=== PATIENT | female | born 1935 | race Caucasian/White ===

== ENCOUNTER → 2020-02-09 12:10 | Outpatient (BNVA) | payer MEDICARE, SELFPAY | PROVIDERS: Family Provider Nurse Practitioner Family; PCP Nurse Practitioner Family; Visit Provider Family Medicine | DX: D50.8 Other iron deficiency anemias (principal); E11.9 Type 2 diabetes mellitus without complications; H61.23 Impacted cerumen, bilateral; N39.0 Urinary tract infection, site not specified; R00.0 Tachycardia, unspecified | CPT/HCPCS: 80053; 83036; 84443; 85025 ==

== ENCOUNTER → 2022-08-22 10:47 | Outpatient (BNVA) | payer MEDICARE, SELFPAY | PROVIDERS: Family Provider Nurse Practitioner Family; PCP Family Medicine; Visit Provider Family Medicine | DX: E11.9 Type 2 diabetes mellitus without complications (principal); M25.561 Pain in right knee; M25.562 Pain in left knee; M25.551 Pain in right hip; M25.552 Pain in left hip; G89.4 Chronic pain syndrome; E03.9 Hypothyroidism, unspecified | CPT/HCPCS: 80053; 83036; 84443 ==

== ENCOUNTER → 2023-04-03 10:38 | Outpatient (BNVA) | payer MEDICARE, SELFPAY | PROVIDERS: Family Provider Nurse Practitioner Family; PCP Family Medicine; Visit Provider Family Medicine | DX: R06.02 Shortness of breath (principal); K59.00 Constipation, unspecified; Z79.891 Long term (current) use of opiate analgesic; Z51.81 Encounter for therapeutic drug level monitoring | CPT/HCPCS: 71046; 74018; 80307 ==

== ENCOUNTER → 2023-06-06 11:00 | Outpatient (BNVA) | payer MEDICARE, SELFPAY | PROVIDERS: Family Provider Nurse Practitioner Family; PCP Family Medicine; Visit Provider Dermatology | DX: C44.01 Basal cell carcinoma of skin of lip (principal) | CPT/HCPCS: 11102; 99213 ==

== ENCOUNTER → 2023-08-07 13:42 | Outpatient (BNVA) | payer MEDICARE, SELFPAY | PROVIDERS: Family Provider Nurse Practitioner Family; PCP Family Medicine; Visit Provider Dermatology | DX: C44.01 Basal cell carcinoma of skin of lip (principal); L57.8 Other skin changes due to chronic exposure to nonionizing radiation; L82.1 Other seborrheic keratosis; L29.8 Other pruritus | CPT/HCPCS: 99213 ==

== ENCOUNTER → 2023-08-22 11:13 | Outpatient (BNVA) | payer MEDICARE, SELFPAY | PROVIDERS: Family Provider Nurse Practitioner Family; PCP Family Medicine; Visit Provider Family Medicine | DX: E03.9 Hypothyroidism, unspecified (principal); E11.9 Type 2 diabetes mellitus without complications; G89.4 Chronic pain syndrome; K59.00 Constipation, unspecified | CPT/HCPCS: 80053; 83036; 84443; 85025 ==

== ENCOUNTER 2023-12-19 12:50 | Inpatient (IN) | payer MEDICARE, SELFPAY ==
[2023-12-19] VITALS (9 sets, daily range): BP systolic 135–202; BP diastolic 65–89; PULSE 84–98; RESP 15–19; TEMP 36.7; O2SAT 93–97; BMI 20.2
--- NOTE | 2023-12-19 13:10 | ED_ITS ---
HPI - Skin/Abscess/Foreign Bdy 2 General: Chief complaint: Skin/Abscess/Foreign Body Stated complaint: back pain Time Seen by Provider: 12/19/23 13:10 History of Present Illness: 88-year-old female comes in today for co mplaints of shingles uncontrolled pain. Patient appears nontoxic. Patient appears in no acute distress. Patient appears in mild to moderate pain. Caregiver states that they were worried about her kidneys so they referred her to the ER for evaluation. Patient does take oxycodone 5 mg every 8 hours for control of pain. Patient endorses that she has taken 5 of her oxycodone tablets this morning due to uncontrolled pain. Patient had reached out to Dr. Moran's office and they referred her to the ER because of their concern for her kidneys. Associated symptoms: Deny fever(s), nausea or vomiting Review of Systems 2 General: Reports: 10 or more systems reviewed and unremarkable except in HPI and below Const: Denies: fever(s) Card: Denies: chest pain Resp: Denies: dyspnea GI: Denies: nausea, vomiting, diarrhea or constipation : Reports: urinary frequency and urinary hesitancy Skin/Breast: Reports: rash PFSH ED 2 PFSH: Medical History Chronic pain Hypothyroid Type 2 diabetes mellitus Social History Smoking and tobacco/nicotine status: never used tobacco/nicotine Second hand smoke exposure: No Alcohol intake: never Substance/Drug Use: never Physical Exam 2 Const: COMMON NORMALS: alert HENMT: COMMON NORMALS: normocephalic HEAD & SCALP: normocephalic Neck/C-Spine: COMMON NORMALS: full ROM Resp: COMMON NORMALS: normal respiratory effort and clear to auscultation bilaterally AUSCULTATION: clear to auscultation bilaterally Cardio: COMMON NORMALS: regular rate and regular rhythm RATE: regular rate RHYTHM: regular rhythm GI: COMMON NORMALS: non-tender Extremity: COMMON NORMALS: normal to inspection Neuro: SENSORIUM/ORIENTATION: Yes alert Skin: RASHES: rashes noted (Crusted vesicular eruption to the back worse on the right than the left.) Course 2 Vital Signs: Vital signs: Vital Signs Temperature 98.0 F 12/19/23 12:52 Pulse Rate 98 12/19/23 12:52 Respiratory Rate 15 12/19/23 13:08 Blood Pressure 182/79 12/19/23 12:52 Pulse Oximetry 95 12/19/23 12:52 Oxygen Delivery Me thod Room Air 12/19/23 12:52 MDM - Skin/Abscess/Foreign Bdy Medicial Decision Making Patient comes in with difficulty with urination and shingles rash with uncontrolled pain. Patient was referred over from Dr. Moran's office due to her increased use of her oxycodone and complaints of not being able to urinate. Patient had been diagnosed with shingles 1 to 2 days ago and was instructed by Dr. Moran to use her oxycodone if she needed something for pain. Patient is scheduled oxycodone 5 mg 3 times a day for pain related to chronic pain syndrome. Patient today had taken 5 tablets before noon and after contacting their office then was referred to the emergency department. Dr. Moran's office had contacted the ER and told him they were concerned about her kidney function. On exam respirations were even lungs were clear to auscultation. Patient was alert but agitated. Patient has a vesicular eruption to her right back with some midline involvement of the flank area. Abdomen soft nontender. Skin was warm and dry. Vital signs are normal except for elevated blood pressure. Differential diagnosis includes not limited to shingles, dehydration, electrolyte imbalance, urinary tract infection. CBC had a increase in white count of 14,000. CMP noted a sodium of 121, and a glucose of 260. Reviewed patient with Dr. Plascencia who recommended admission due to the hyponatremia. Discussed patient with Dr. Daniel who agreed to plan for admission. Patient was started on normal saline, ceftriaxone for urinary tract infection, and Valtrex for shingles. Lab Data 12/19/23 13:29 12/19/23 13:29 Laboratory Results WBC 14.49 10^3/uL (3.29-11.43) H 12/19/23 13:29 RBC 4.24 10^6/uL (3.85-5.65) 12/19/23 13:29 Hgb 12.90 g/dL (11.27-16.99) 12/19/23 13:29 Hct 37.0 % (36-47) 12/19/23 13:29 MCV 87.3 fl (85-98) 12/19/23 13:29 MCH 30.4 pg (27-33) 12/19/23 13:29 MCHC 34.9 g/dL (30-55) 12/19/23 13:29 RDW 11.9 % (12.1-15.1) L 12/19/23 13:29 Plt Count 344 10^3/cmm (157-399) 12/19/23 13:29 MPV 9.3 fL (7.4-10.4) 12/19/23 13:29 Neut % (Auto) 75.8 % 12/19/23 13:29 Lymph % (Auto) 15.3 % 12/19/23 13:29 [place] % (Auto) 8.0 % 12/19/23 13:29 Eos % (Auto) 0.4 % 12/19/23 13:29 Baso % (Auto) 0.2 % 12/19/23 13:29 Neut # (Auto) 10.98 10^3/uL (1.8-7.7) H 12/19/23 13:29 Lymph # (Auto) 2.2 10^3/uL (0.8-4.8) 12/19/23 13:29 [place] # (Auto) 1.2 10^3/uL (0.2-0.9) H 12/19/23 13:29 Eos # (Auto) 0.1 10^3/uL (0.0-0.8) 12/19/23 13:29 Baso # (Auto) 0.0 10^3/uL (0.0-0.1) 12/19/23 13:29 Nucleated RBC % (auto) 0 % 12/19/23 13:29 Nucleated RBCs # 0.0 /100WBC 12/19/23 13:29 Sodium 121 mmol/L (136-145) L 12/19/23 13:29 Potassium 4.0 mmol/L (3.5-5.1) 12/19/23 13:29 Chloride 82 mmol/L (98-107) L 12/19/23 13:29 Carbon Dioxide 25 mmol/L (22-29) 12/19/23 13:29 Anion Gap 18.0 (5-19) 12/19/23 13:29 BUN 7 mg/dL (8-23) L 12/19/23 13:29 Creatinine 0.5 mg/dL (0.5-0.9) 12/19/23 13:29 GFR Calculation Not Reportable 12/19/23 13:29 Glucose 260 mg/dL (65-115) H 12/19/23 13:29 Calculated Osmolality 259 mOsm/kg (285-295) L 12/19/23 13:29 Calcium 10.0 mg/dL (8.5-10.5) 12/19/23 13:29 Total Bilirubin 0.9 mg/dL (0.15-1.2) 12/19/23 13:29 AST 30 U/L (0-32) 12/19/23 13:29 ALT 20 U/L (0-33) 12/19/23 13:29 Alkaline Phosphatase 124 U/L (35-105) H 12/19/23 13:29 Total Protein 7.9 g/dL (6.6-8.7) 12/19/23 13:29 Albumin 3.9 g/dL (3.5-5.2) 12/19/23 13:29 Globulin 4.0 g/dL (1.3-4.6) 12/19/23 13:29 Urine Color Yellow (Yellow) 12/19/23 13:27 Urine Appearance Hazy (CLEAR) A 12/19/23 13:27 Urine pH 6 (5-7) 12/19/23 13:27 Ur Specific [place] 1.010 (1.005-1.030) 12/19/23 13:27 Urine Protein Trace (Negative) 12/19/23 13:27 Urine Glucose (UA) 4+ (Normal) H 12/19/23 13:27 Urine Ketones 2+ (Negative) H 12/19/23 13:27 Urine Blood 2+ (Negative) H 12/19/23 13:27 Urine Nitrate Negative (Negative) 12/19/23 13: Urine Bilirubin Neg (Negative) 12/19/23 13:27 Urine Urobilinogen Norm mg/dL (Negative) 12/19/23 13:27 Ur Leukocyte Esterase 2+ (Negative) H 12/19/23 13:27 Urine RBC 0-4 /hpf (0-2) H 12/19/23 13:27 Urine WBC 25-40 /hpf (0-5) H 12/19/23 13:27 Ur Squamous Epith Cells 0-4 /hpf (0-5) H 12/19/23 13:27 Amorphous Sediment Not Reportable 12/19/23 13:27 Urine Bacteria 3+ /hpf (NONE) H 12/19/23 13:27 No radiology studies performed this visit Discharge Plan Discharge Patient Disposition: Admitted As Inpatient Clinical Impression: Acute hyponatremia, Acute UTI Shingles Qualifiers: Herpes zoster complications: unspecified herpes zoster complication Qualified Code(s): B02.8 - Zoster with other complications Diabetes mellitus Qualifiers: Diabetes mellitus type: type 2 Diabetes mellitus snf insulin use: u nspecified ferry terminal supervisor insulin use status Diabetes mellitus complication status: w ith skin complications Diabetes mellitus complication detail: with dermatitis Q ualified Code(s): E11.620 - Type 2 diabetes mellitus with diabetic dermatitis Condition: Stable Coding Level of Care Code ED Bone Cooking Operator for Priyanka Banks
[2023-12-19 13:34] LABS: Basophils % 0.2 %; Eosinophils # 0.1 10^3/uL (0.0-0.8); Eosinophils % 0.4 %; Lymphocytes # 2.2 10^3/uL (0.8-4.8); Lymphocytes % 15.3 %; Mean Corpuscular HGB Conc 34.9 g/dL (30-55); Mean Corpuscular Hemoglobin 30.4 pg (27-33); Mean Corpuscular Volume 87.3 fl (85-98); Mean Platelet Volume 9.3 fL (7.4-10.4); Monocytes # 1.2 10^3/uL (0.2-0.9); Neutrophils # 10.98 10^3/uL (1.8-7.7); Neutrophils % 75.8 %; Nucleated Red Blood Cells % 0 %; Platelet Count 344 10^3/cmm (157-399); Red Blood Count 4.24 10^6/uL (3.85-5.65); Red Cell Distribution Width 11.9 % (12.1-15.1); White Blood Count 14.49 10^3/uL (3.29-11.43)
[2023-12-19] MEDS: lidocaine 5% Patch 1 PATCH TOPICAL ×2 (13:45→23:16)
[2023-12-19 13:47] LABS: Add Urine Culture? Yes; Add Urine Microscopic? YES; Bacteria Urine 3+ /hpf; Bilirubin Urine Neg (Negative); Blood Urine 2+ (Negative); Glucose Urine UA 4+ (Normal); Ketones Urine 2+ (Negative); Leukocyte Esterase Urine 2+ (Negative); Nitrate Urine Negative (Negative); Protein Urine Trace (Negative); RBC Urine 0-4 /hpf (0-2); Squamous Epithelial Cell Urine 0-4 /hpf (0-5); Urine Appearance Hazy (CLEAR); Urine Color Yellow (Yellow); Urobilinogen Urine Norm (Negative); WBC Urine 25-40 /hpf (0-5); pH Urine 6 (5-7)
[2023-12-19 13:49] LABS: Alanine Aminotransferase 20 U/L (0-33); Albumin Level 3.9 g/dL (3.5-5.2); Alkaline Phosphatase 124 U/L (35-105); Aspartate Amino Transferase 30 U/L (0-32); Blood Urea Nitrogen 7 mg/dL (8-23); Carbon Dioxide 25 mmol/L (22-29); Chloride 82 mmol/L (98-107); Glucose 260 mg/dL (65-115); Osmolality Calculated 259 mOsm/kg (285-295); Sodium 121 mmol/L (136-145); Total Bilirubin 0.9 mg/dL (0.15-1.2); Total Protein 7.9 g/dL (6.6-8.7)
[2023-12-19] MEDS: valACYclovir 1,000 mg Tablet 1000 MG PO (14:09)
[2023-12-19] MEDS: cefTRIAXone 1,000 MG in sodium chloride 0.9% (plus) 50 ML 100 MG IV (14:14)
[2023-12-19] MEDS: sodium chloride 0.9% 1,000 ML 125 ML IV (14:46)
[2023-12-19] MEDS: cloNIDine 0.1 mg Tablet PO (14:57)
[2023-12-19] MEDS: alum-mag-hydroxide-sime 30 mL UDC PO (15:16)
[2023-12-19] MEDS: morphine 4 mg/mL SDV 1 mL 2 MG IVP (15:16)
--- NOTE | 2023-12-19 15:50 | PM.HP ---
Providers/Chief Complaint Admitting Physician: Julianne Daniel MD Primary Care Provider: René Weems MD Chief Complaint: back pain History of Present Illness Kassy Baldwin is a 88 year old female who has been suffering from shingles for last 10 days, she has not noticed any fever, shortness of breath but today present to the hospital for worsening fatigue lethargy and pain. Patient has already taken 5 doses of opioids this morning, she is stating that she has allergies to the most of the medications she is refusing to take Tylenol. She is even endorsing allergy to prednisone. Her vesicles are crusting, I will put her in isolation She has low sodium, check thyroid panel Patient stating that she has not eaten well in the last 3 to 4 days She lives with her daughter Came from home Review of Systems Const: Denies: fever(s) Eyes: Denies: change in vision ENMT: Denies: throat pain Card: Denies: chest pain Resp: Denies: dyspnea GI: Denies: abdominal pain : Denies: flank pain Musc: Reports: back pain Skin/Breast: Reports: rash, pruritus and new lesions Medications/Allergies Home Medications Medication Instructions Recorded Confirmed Last Taken Type ascorbate calcium (vitamin C) 500 See Rx Instructions .Route .COMPLEX 02/20/23 12/19/23 Unknown History mg tablet magnesium 200 mg tablet See Rx Instructions .Route .COMPLEX 02/20/23 12/19/23 Unknown History oxycodone 5 mg tablet 5 mg PO Q8H PRN pain 30 days #90 11/26/23 12/19/23 Unknown Rx tabs lactulose 10 gram/15 mL oral 0.75 ml PO BID 12/18/23 12/19/23 12/19/23 History solution cholecalciferol (vitamin D3) 125 See Rx Instructions .Route .COMPLEX 12/19/23 12/19/23 Unknown History mcg (5,000 unit) tablet (Vitamin D3) levothyroxine 100 mcg tablet 100 mcg PO DAILY 12/19/23 12/19/23 12/19/23 History Allergies Allergy/AdvReac Type Severity Reaction Status Date / Time prednisone Allergy Severe sick Verified 12/19/23 12:58 insulin detemir Allergy Intermediate rapid Verified 12/19/23 12:58 [From Levemir U-100 Insulin] heart beat metformin Allergy Intermediate unknown Verified 12/19/23 12:58 Macrolide Antibiotics AdvReac Mild rash/nausea Verified 12/19/23 12:58 ofloxacin [From Floxin] AdvReac Mild rash/nausea Verified 12/19/23 12:58 penicillin G AdvReac Mild rash Verified 12/19/23 12:58 Sulfa (Sulfonamide AdvReac Mild rash Verified 12/19/23 12:58 Antibiotics) codiene AdvReac Mild nausea/itch Uncoded 12/19/23 12:58 ng PFSH Acute PFSH: Medical History Type 2 diabetes mellitus Chronic pain Hypothyroid Social History Smoking and tobacco/nicotine status: never used tobacco/nicotine Second hand smoke exposure: No Alcohol intake: never Substance/Drug Use: never Vitals/I&O/Wt Last Vital Signs Temp 98.0 F 12/19/23 12:52 Pulse 93 12/19/23 14:20 Resp 17 12/19/23 15:16 BP 202/89 12/19/23 14:57 Pulse Ox 97 12/19/23 15:16 O2 Del Method Room Air 12/19/23 14:20 12/19/23 12/19/23 12/19/23 06:59 14:59 22:59 Intake Total 50 / 50 Balance 50 / 50 Weight last 48 hrs Weight 51.71 kg Physical Exam Narrative: female Dehydrated GCS 15 Nonfocal neuroexam Anticipating Has lidocaine patch on her rash GCS 15 Pleasant calm Nonfocal neuroexam No rash around her eyes Pleasant cooperative Data 12/19/23 13:29 12/19/23 13:29 A&P Assessment and plan (1) Type 2 diabetes mellitus: Qualifiers: Diabetes mellitus fdc insulin use: without buttermaker continuous churn use Diabetes mellitus complication status: without complication Qualified Code(s): E11.9 - Type 2 diabetes mellitus without complications (2) Acute hyponatremia: (3) Shingles: Qualifiers: Herpes zoster complications: unspecified herpes zoster complication Qualified Code(s): B02.8 - Zoster with other complications (4) Compression fracture of thoracic spine, non-traumatic: Qualifiers: Encounter type: subsequent encounter Thoracic vertebra fracture level: T9 Fracture healing: with delayed healing Qualified Code(s): M48.54XG - Collapsed vertebra, not elsewhere classified, thoracic region, subsequent encounter for fracture with delayed healing (5) Cervical lymphadenopathy: Plan Hyponatremia Gentle fluid hydration Patient is hypervolemic She has not eaten well in the last 3 days Check TSH urine and serum osmolality Shingles Start acyclovir, steroids and gabapentin Lidocaine patch on her rash Crusting noted Will put her in isolation until discharge No signs of dissemination I will just put on contact isolation no need of airborne isolation at this point Full code Diabetic diet Insulin sliding scale Check TSH Attestations Medical Necessity Statement*: Patient will need management of hyponatremia and shingles and management of pain anticipating more than 2 midnights for management of hyponatremia Diagnoses Type 2 diabetes mellitus without complication, without long-term current use of insulin E11.9 Diabetes mellitus fdc insulin use: without buttermaker continuous churn use Diabetes mellitus complication status: without complication Acute hyponatremia E87.1 Shingles B02.8 Herpes zoster complications: unspecified herpes zoster complication Non-traumatic compression fracture of T9 thoracic vertebra with delayed healing, subsequent encounter M48.54XG Encounter type: subsequent encounter Thoracic vertebra fracture level: T9 Fracture healing: with delayed healing Cervical lymphadenopathy R59.0
[2023-12-19 16:34] LABS: Procalcitonin 0.06 ng/mL (0-0.5)
[2023-12-19 17:15] LABS: Glucose Point of Care 235 mg/dL (70-110)
[2023-12-19] MEDS: morphine IR 15 mg Tablet PO (17:36)
[2023-12-19] MEDS: sodium chloride 0.9% 1,000 ML 75 ML IV (18:02)
[2023-12-19] MEDS: enoxaparin 40 mg/0.4 mL Syringe SUBCUT (18:03)
[2023-12-19] MEDS: insulin lispro 100 unit/1 mL SUBCUT (18:03)
[2023-12-19] MEDS: lidocaine-prilocaine cream 5 gm 2 APPLIC TOPICAL (18:04)
--- NOTE | 2023-12-19 20:22 | PC.NURSE ---
Nurse to room to administer gabapentin and decadron. Patient adamantly refused both medications, stating that she won't risk her life taking medications she is allergic to, and wanted to know who was working and handling things.
[2023-12-19 20:47] LABS: Sodium 128 mmol/L (136-145); Thyroid Stimulating Hormone 1.75 uIU/mL (0.27-4.20)
[2023-12-19 22:02] LABS: Glucose Point of Care 122 mg/dL (70-110)
[2023-12-19] MEDS: oxyCODONE-APAP 5-325 mg Tablet 1 TAB PO (23:18)
[2023-12-20] VITALS (9 sets, daily range): BP systolic 128–195; BP diastolic 71–92; PULSE 88–122; RESP 16–20; TEMP 36.4–36.6; O2SAT 92–96; BMI 21.0
[2023-12-20] MEDS: lidocaine-prilocaine cream 5 gm 2 APPLIC TOPICAL ×2 (05:19→17:11)
[2023-12-20 06:11] LABS: Basophils % 0.2 %; Eosinophils # 0.1 10^3/uL (0.0-0.8); Eosinophils % 0.4 %; Lymphocytes # 2.3 10^3/uL (0.8-4.8); Mean Corpuscular HGB Conc 34.3 g/dL (30-55); Mean Corpuscular Hemoglobin 29.7 pg (27-33); Mean Corpuscular Volume 86.7 fl (85-98); Mean Platelet Volume 9.8 fL (7.4-10.4); Monocytes # 1.4 10^3/uL (0.2-0.9); Monocytes % 9.4 %; Neutrophils # 10.55 10^3/uL (1.8-7.7); Neutrophils % 73.7 %; Nucleated Red Blood Cells % 0 %; Platelet Count 318 10^3/cmm (157-399); Red Blood Count 4.27 10^6/uL (3.85-5.65); Red Cell Distribution Width 11.9 % (12.1-15.1); White Blood Count 14.34 10^3/uL (3.29-11.43)
[2023-12-20 06:34] LABS: Anion Gap 19.9 (5-19); Blood Urea Nitrogen 6 mg/dL (8-23); Calcium 9.8 mg/dL (8.5-10.5); Carbon Dioxide 24 mmol/L (22-29); Chloride 89 mmol/L (98-107); Glucose 196 mg/dL (65-115); Magnesium 1.9 mg/dL (1.7-2.3); Osmolality Calculated 271 mOsm/kg (285-295); Potassium 3.9 mmol/L (3.5-5.1); Sodium 129 mmol/L (136-145)
[2023-12-20 06:45] LABS: Glucose Point of Care 178 mg/dL (70-110)
[2023-12-20] MEDS: oxyCODONE-APAP 5-325 mg Tablet 1 TAB PO ×2 (08:36→17:08)
[2023-12-20] MEDS: insulin lispro 100 unit/1 mL SUBCUT ×3 (08:36→17:10)
[2023-12-20] MEDS: sodium chloride 0.9% 1,000 ML 75 ML IV ×2 (08:37→20:09)
[2023-12-20] MEDS: levothyroxine 100 mcg Tablet PO (08:37)
[2023-12-20] MEDS: valACYclovir 1,000 mg Tablet 500 MG PO ×2 (08:37→17:09)
--- NOTE | 2023-12-20 09:04 | PC.CHAP ---
Pastoral Care Encounter/Spiritual Assessment Type of Contact [] Declined dough mixer visit [] Patient/Family/Request visit [] Outpatient visit [] Follow-up visit [] Physician referral [] Code/Alert [] Routine visit [] Staff referral [] Actively dying [] Patient sleeping [] Family support [] [] Out of room [] Palliative care [] [] Receiving care in room [] Pre-surgical visit [] Trauma [] Long length of stay [] ICU visit [x] Other:Covid. No visit. Relational/Emotional Strength [] Patient feels connected with others/family/visitors/staff [] Distress [] Loneliness/isolation [] Abandonment Spirituality of Patient [] Person of Betty [] Attends Muslim of their Betty [] Believes in Prayer [] Reads Bible or Yarsani materials [] There are Spiritual issues to be addressed Sql Report Writer Interventions [] Prayer [] Active listening [] Non-anxious presence [] Spiritual/emotional support [] Crisis/trauma care [] Spiritual counseling [] Bereavement support [] Provided bereavement packet [] Provided Bible/devotional materials [] Provided toy/stuffed animal, coloring book to patient or family member [] Provided Communion [] Anointing/[place] [] Salvation [] Completed spiritual assessment [] Other: Impact on Illness or Injury [] Angry [] Fearful [] Anxious [] Often cries [] Exhaustion [] Unable to work [] Unable to attend denominational [] Unable to walk/stand [] Unable to read [] Unable to drive [] Unable to eat/drink [] Unable to sleep [] Unable to be with family [] Patient intubated [] Other: Summary Time spent with patient
--- NOTE | 2023-12-20 09:11 | PC.SOCIAL ---
IMM Update pg 2 of IMM updated and reviewed w/ patient. Copy provided and copy dated, initialed and placed in chart.
--- NOTE | 2023-12-20 10:01 | P.PN_ITS ---
Subjective 2 Subjective: Patient is stating that her pain gets worse on moving Otherwise her sodium has improved 229 Awake and alert Still anxious She was seen in the presence of her nurse She has a lidocaine patch on her back Vitals/I&O/Wt Last Vital Signs Temp 97.5 F L 12/20/23 08:01 Pulse 88 12/20/23 08:01 Resp 16 12/20/23 08:36 BP 188/90 12/20/23 08:01 Pulse Ox 94 12/20/23 08:01 O2 Del Method Room Air 12/20/23 08:01 12/19/23 12/20/23 12/20/23 22:59 06:59 14:59 Intake Total 480 / 530 1480 / 1480 Balance 480 / 530 1480 / 1480 Weight last 48 hrs Weight 53.887 kg Weight 51.795 kg Weight 51.71 kg Physical Exam 2 Narrative: Patient is very anxious appearing Afebrile Hypertensive Currently on room air Has a lidocaine patch on her back Nonfocal neuroexam Pleasant and cooperative S1, S2 Data 12/20/23 05:35 12/20/23 05:35 A&P Assessment and plan (1) Type 2 diabetes mellitus: Qualifiers: Diabetes mellitus filler leaf cutter long insulin use: without group home use Diabetes mellitus complication status: without complication Qualified Code(s): E11.9 - Type 2 diabetes mellitus without complications (2) Diabetes mellitus: Qualifiers: Diabetes mellitus complication detail: with dermatitis Diabetes mellitus complication status: with skin complications Diabetes mellitus filler leaf cutter long insulin use: unspecified group home insulin use status Diabetes mellitus type: type 2 Qualified Code(s): E11.620 - Type 2 diabetes mellitus with diabetic dermatitis (3) Acute hyponatremia: (4) Cervical lymphadenopathy: (5) Shingles: Qualifiers: Herpes zoster complications: unspecified herpes zoster complication Qualified Code(s): B02.8 - Zoster with other complications Plan Shingles: Continue Valtrex She will just need contact isolation it is not disseminated no need of airborne isolation at this point Told the nurse as well Hyponatremia related to dehydration Continue IV fluid Nonfocal neuroexam Continue IV fluids for 1 more day Pain management for shingles with steroids, gabapentin, lidocaine patch Patient does not want to use Tylenol UTI: Ceftriaxone Plan to discharge her by tomorrow if sodium is better She came from home lives with her daughter Full code Consistent carb diet with insulin sliding scale Attestations 2 Medical Necessity Statement*: Continue medical management Diagnoses Type 2 diabetes mellitus without complication, without long-term current use of insulin E11.9 Diabetes mellitus group home insulin use: without filler leaf cutter long use Diabetes mellitus complication status: without complication Diabetes mellitus E11.620 Diabetes mellitus complication detail: with dermatitis Diabetes mellitus complication status: with skin complications Diabetes mellitus group home insulin use: unspecified filler leaf cutter long insulin use status Diabetes mellitus type: type 2 Acute hyponatremia E87.1 Cervical lymphadenopathy R59.0 Shingles B02.8 Herpes zoster complications: unspecified herpes zoster complication
[2023-12-20 11:16] LABS: Glucose Point of Care 187 mg/dL (70-110)
[2023-12-20] MEDS: cefTRIAXone 1,000 MG in sodium chloride 0.9% (plus) 50 ML 100 MG IV (12:03)
[2023-12-20 16:16] LABS: Glucose Point of Care 243 mg/dL (70-110)
[2023-12-20] MEDS: enoxaparin 40 mg/0.4 mL Syringe SUBCUT (17:09)
[2023-12-20 22:27] LABS: Glucose Point of Care 185 mg/dL (70-110)
[2023-12-21] VITALS (10 sets, daily range): BP systolic 127–185; BP diastolic 68–87; PULSE 72–121; RESP 16–20; TEMP 36.3–36.6; O2SAT 93–99
[2023-12-21] MEDS: oxyCODONE-APAP 5-325 mg Tablet 1 TAB PO ×3 (02:00→18:30)
[2023-12-21 04:49] LABS: Basophils % 0.2 %; Eosinophils % 0.2 %; Hematocrit 34.2 % (36-47); Lymphocytes % 16.1 %; Mean Corpuscular HGB Conc 33.9 g/dL (30-55); Mean Corpuscular Hemoglobin 29.7 pg (27-33); Mean Corpuscular Volume 87.7 fl (85-98); Mean Platelet Volume 10.1 fL (7.4-10.4); Monocytes # 1.1 10^3/uL (0.2-0.9); Monocytes % 8.9 %; Neutrophils # 8.96 10^3/uL (1.8-7.7); Neutrophils % 74.3 %; Nucleated Red Blood Cells % 0 %; Platelet Count 239 10^3/cmm (157-399); White Blood Count 12.08 10^3/uL (3.29-11.43)
[2023-12-21 05:05] LABS: Anion Gap 16.4 (5-19); Blood Urea Nitrogen 7 mg/dL (8-23); Carbon Dioxide 24 mmol/L (22-29); Chloride 93 mmol/L (98-107); Glucose 233 mg/dL (65-115); Osmolality Calculated 275 mOsm/kg (285-295); Potassium 3.4 mmol/L (3.5-5.1); Sodium 130 mmol/L (136-145)
[2023-12-21 06:59] LABS: Glucose Point of Care 212 mg/dL (70-110)
[2023-12-21] MEDS: levothyroxine 100 mcg Tablet PO (09:19)
[2023-12-21] MEDS: valACYclovir 1,000 mg Tablet 500 MG PO ×2 (09:19→17:12)
[2023-12-21] MEDS: cefTRIAXone 1,000 MG in sodium chloride 0.9% (plus) 50 ML 100 MG IV (09:20)
[2023-12-21] MEDS: insulin lispro 100 unit/1 mL SUBCUT ×3 (09:21→17:14)
--- NOTE | 2023-12-21 10:12 | P.PN_ITS ---
Subjective 2 Subjective: Patient is stating that her left eye soreness has improved She is thinking that her rash has worsened She was also complaining of some pain under her right breast She does not want to use lidocaine patch anymore Vitals/I&O/Wt Last Vital Signs Temp 97.8 F 12/21/23 08:28 Pulse 78 12/21/23 09:12 Resp 20 H 12/21/23 10:11 BP 164/77 12/21/23 08:28 Pulse Ox 95 12/21/23 09:12 O2 Del Method Room Air 12/21/23 09:12 12/20/23 12/21/23 12/21/23 22:59 06:59 14:59 Intake Total 1513.75 / 3523.75 530 / 530 Balance 1513.75 / 3523.75 530 / 530 Weight last 48 hrs Weight 55.021 kg Weight 53.887 kg Weight 51.795 kg Weight 51.71 kg Physical Exam 2 Narrative: Her single rash is showing crusting Lidocaine patches removed I do not appreciate any worsening of rash I do not see any sign of herpes keratitis Pleasant calm GCS 15 Abdomen soft S1, S2 Currently on room air Data 12/21/23 04:36 12/21/23 04:36 Micro: Microbiology 12/19/23 13:27 Urine Culture - Preliminary Urine,Clean Catch Gram Negative Rods A&P Assessment and plan (1) Type 2 diabetes mellitus: Qualifiers: Diabetes mellitus prison insulin use: without bed bug exterminator use Diabetes mellitus complication status: without complication Qualified Code(s): E11.9 - Type 2 diabetes mellitus without complications (2) Constipation: (3) Acute UTI: (4) Acute hyponatremia: (5) Shingles: Qualifiers: Herpes zoster complications: unspecified herpes zoster complication Qualified Code(s): B02.8 - Zoster with other complications Plan I will give patient GI cocktail I do not see any sign of worsening of shingles rash It is actually showing crusting She should be able to go home by tomorrow if sodium keeps improving I will add salt tablets for today discontinue IV fluids Attestations 2 Medical Necessity Statement*: Possible discharge tomorrow Diagnoses Type 2 diabetes mellitus without complication, without long-term current use of insulin E11.9 Diabetes mellitus bed bug exterminator insulin use: without prison use Diabetes mellitus complication status: without complication Constipation K59.00 Acute UTI N39.0 Acute hyponatremia E87.1 Shingles B02.8 Herpes zoster complications: unspecified herpes zoster complication
[2023-12-21] MEDS: sodium chloride 1 gm Tablet PO ×3 (11:10→21:28)
[2023-12-21] MEDS: lidocaine 2% viscous 15 ML, aluminum-mag hydrox-simethicon 30 ML, sucralfate oral liq 1 GM PO (11:15)
[2023-12-21 11:16] LABS: Glucose Point of Care 161 mg/dL (70-110)
[2023-12-21] MEDS: lidocaine 5% Patch 1 PATCH TOPICAL ×2 (15:37→21:28)
[2023-12-21 16:29] LABS: Glucose Point of Care 168 mg/dL (70-110)
[2023-12-21] MEDS: lidocaine-prilocaine cream 5 gm 2 APPLIC TOPICAL (17:13)
[2023-12-21] MEDS: enoxaparin 40 mg/0.4 mL Syringe SUBCUT (17:14)
[2023-12-21 20:11] LABS: Glucose Point of Care 176 mg/dL (70-110)
[2023-12-22] VITALS (8 sets, daily range): BP systolic 170–194; BP diastolic 71–81; PULSE 90–104; RESP 16–20; TEMP 36.6–37; O2SAT 93–98
[2023-12-22] MEDS: oxyCODONE-APAP 5-325 mg Tablet 1 TAB PO ×2 (01:43→08:10)
[2023-12-22 04:34] LABS: Basophils % 0.2 %; Eosinophils % 0.2 %; Lymphocytes # 1.8 10^3/uL (0.8-4.8); Lymphocytes % 15.8 %; Mean Corpuscular HGB Conc 33.5 g/dL (30-55); Mean Corpuscular Hemoglobin 29.6 pg (27-33); Mean Corpuscular Volume 88.5 fl (85-98); Mean Platelet Volume 10.5 fL (7.4-10.4); Monocytes # 0.9 10^3/uL (0.2-0.9); Monocytes % 8.4 %; Neutrophils # 8.45 10^3/uL (1.8-7.7); Neutrophils % 75.1 %; Nucleated Red Blood Cells % 0 %; Platelet Count 371 10^3/cmm (157-399); Red Blood Count 4.52 10^6/uL (3.85-5.65); Red Cell Distribution Width 12.2 % (12.1-15.1); White Blood Count 11.23 10^3/uL (3.29-11.43)
[2023-12-22 04:54] LABS: Blood Urea Nitrogen 7 mg/dL (8-23); Calcium 9.4 mg/dL (8.5-10.5); Carbon Dioxide 25 mmol/L (22-29); Chloride 90 mmol/L (98-107); Glucose 203 mg/dL (65-115); Osmolality Calculated 272 mOsm/kg (285-295); Sodium 129 mmol/L (136-145)
[2023-12-22] MEDS: lidocaine-prilocaine cream 5 gm 2 APPLIC TOPICAL (06:18)
[2023-12-22 06:48] LABS: Glucose Point of Care 241 mg/dL (70-110)
[2023-12-22] MEDS: levothyroxine 100 mcg Tablet PO (08:10)
[2023-12-22] MEDS: sodium chloride 1 gm Tablet PO (08:10)
[2023-12-22] MEDS: valACYclovir 1,000 mg Tablet 500 MG PO (08:10)
[2023-12-22] MEDS: lidocaine 5% Patch 1 PATCH TOPICAL (08:11)
[2023-12-22] MEDS: lactulose oral liq 20 gm/30 mL UDC PO (08:13)
[2023-12-22] MEDS: cefTRIAXone 1,000 MG in sodium chloride 0.9% (plus) 50 ML 100 MG IV (08:13)
[2023-12-22] MEDS: gabapentin 300 mg Capsule PO (08:16)
--- NOTE | 2023-12-22 09:55 | PM.DCS ---
Discharge Providers Date of Admission: 12/19/23 14:16 Date of Discharge: December 22, 2023 Attending Provider at Admission: Julianne Daniel MD Attending Provider at Discharge: Julianne Daniel MD Primary Care Provider: René Weems MD Diagnoses at Discharge Discharge Diagnosis (1) Type 2 diabetes mellitus: Status: Acute Qualifiers: Diabetes mellitus complication status: without complication Diabetes mellitus ocean transportation intermediary insulin use: without ocean transportation intermediary use Qualified Code(s): E11.9 - Type 2 diabetes mellitus without complications (2) Constipation: Status: Acute (3) Acute UTI: Status: Acute (4) Acute hyponatremia: Status: Acute (5) Shingles: Status: Acute Qualifiers: Herpes zoster complications: unspecified herpes zoster complication Qualified Code(s): B02.8 - Zoster with other complications Reason for Visit Reason for Visit: back pain Hospital Course Hospital Course 88-year-old female who was admitted for management evaluation of hyponatremia, pain management related to her shingles, she was put on Valtrex, she was given lidocaine patch, opioids gabapentin and steroids during hospitalization, sodium improved from 121 at the time of admission 229 at the time of discharge, patient extremely dehydrated she did not eat well before she got admitted, she was kept on normal saline, serum and urine osmolality is pending, clinically she is hypovolemic. Patient is able to get up walk around she was able to go to the restroom on her own without any assistance, I will give her Valtrex course at the time of discharge along tramadol and lidocaine patch. I will discontinue the course of steroids. She may follow-up with her PCP, will give her salt/urea tablets for next 5 days. There is no sign of secondary bacterial infection, for her neuropathic pain I have prescribed her gabapentin, patient is stating that she has allergies to most of the medications including Tylenol which I do not think is true, she is endorsing that she gets kidney pain after taking Tylenol Physical Exam Narrative: Awake and alert Shingles Vesicles have crusted they are not spreading at this point They are on both sides of her back but I do not suspect disseminated shingles at this point Awake and alert No other rash noted Eyes without any rash No rash under her breast GCS 15 Pleasant cough S1, S2 Discharge Data Studies Completed and Pending Pending at discharge Category Date Time Status Osmolality Serum Routine Lab 12/19/23 13:29 Received Osmolality Urine Routine Lab 12/19/23 00:24 Received Laboratory Results WBC 11.23 10^3/uL (3.29-11.43) 12/22/23 03:06 RBC 4.52 10^6/uL (3.85-5.65) 12/22/23 03:06 Hgb 13.40 g/dL (11.27-16.99) 12/22/23 03:06 Hct 40.0 % (36-47) 12/22/23 03:06 MCV 88.5 fl (85-98) 12/22/23 03:06 MCH 29.6 pg (27-33) 12/22/23 03:06 MCHC 33.5 g/dL (30-55) 12/22/23 03:06 RDW 12.2 % (12.1-15.1) 12/22/23 03:06 Plt Count 371 10^3/cmm (157-399) D 12/22/23 03:06 MPV 10.5 fL (7.4-10.4) H 12/22/23 03:06 Neut % (Auto) 75.1 % 12/22/23 03:06 Lymph % (Auto) 15.8 % 12/22/23 03:06 [place] % (Auto) 8.4 % 12/22/23 03:06 Eos % (Auto) 0.2 % 12/22/23 03:06 Baso % (Auto) 0.2 % 12/22/23 03:06 Neut # (Auto) 8.45 10^3/uL (1.8-7.7) H 12/22/23 03:06 Lymph # (Auto) 1.8 10^3/uL (0.8-4.8) 12/22/23 03:06 [place] # (Auto) 0.9 10^3/uL (0.2-0.9) 12/22/23 03:06 Eos # (Auto) 0.0 10^3/uL (0.0-0.8) 12/22/23 03:06 Baso # (Auto) 0.0 10^3/uL (0.0-0.1) 12/22/23 03:06 Nucleated RBC % (auto) 0 % 12/22/23 03:06 Nucleated RBCs # 0.0 /100WBC 12/22/23 03:06 Sodium 129 mmol/L (136-145) L 12/22/23 03:06 Potassium 3.0 mmol/L (3.5-5.1) L 12/22/23 03:06 Chloride 90 mmol/L (98-107) L 12/22/23 03:06 Carbon Dioxide 25 mmol/L (22-29) 12/22/23 03:06 Anion Gap 17.0 (5-19) 12/22/23 03:06 BUN 7 mg/dL (8-23) L 12/22/23 03:06 Creatinine 0.5 mg/dL (0.5-0.9) 12/22/23 03:06 GFR Calculation Not Reportable 12/22/23 03:06 Glucose 203 mg/dL (65-115) H 12/22/23 03:06 POC Glucose 241 mg/dL (70-110) H 12/22/23 06:33 Calculated Osmolality 272 mOsm/kg (285-295) L 12/22/23 03:06 Uric Acid 3.0 mg/dL (2.4-5.7) 12/19/23 20:08 Calcium 9.4 mg/dL (8.5-10.5) 12/22/23 03:06 Magnesium 1.9 mg/dL (1.7-2.3) 12/20/23 05:35 Total Bilirubin 0.9 mg/dL (0.15-1.2) 12/19/23 13:29 AST 30 U/L (0-32) 12/19/23 13:29 ALT 20 U/L (0-33) 12/19/23 13:29 Alkaline Phosphatase 124 U/L (35-105) H 12/19/23 13:29 Total Protein 7.9 g/dL (6.6-8.7) 12/19/23 13:29 Albumin 3.9 g/dL (3.5-5.2) 12/19/23 13:29 Globulin 4.0 g/dL (1.3-4.6) 12/19/23 13:29 Procalcitonin 0.06 ng/mL (0-0.5) 12/19/23 13:29 TSH 1.75 uIU/mL (0.27-4.20) 12/19/23 20:08 Urine Color Yellow (Yellow) 12/19/23 13:27 Urine Appearance Hazy (CLEAR) A 12/19/23 13:27 Urine pH 6 (5-7) 12/19/23 13:27 Ur Specific [place] 1.010 (1.005-1.030) 12/19/23 13:27 Urine Protein Trace (Negative) 12/19/23 13:27 Urine Glucose (UA) 4+ (Normal) H 12/19/23 13:27 Urine Ketones 2+ (Negative) H 12/19/23 13:27 Urine Blood 2+ (Negative) H 12/19/23 13:27 Urine Nitrate Negative (Negative) 12/19/23 13:27 Urine Bilirubin Neg (Negative) 12/19/23 13:27 Urine Urobilinogen Norm mg/dL (Negative) 12/19/23 13:27 Ur Leukocyte Esterase 2+ (Negative) H 12/19/23 13:27 Urine RBC 0-4 /hpf (0-2) H 12/19/23 13:27 Urine WBC 25-40 /hpf (0-5) H 12/19/23 13:27 Ur Squamous Epith Cells 0-4 /hpf (0-5) H 12/19/23 13:27 Amorphous Sediment Not Reportable 12/19/23 13:27 Urine Bacteria 3+ /hpf (NONE) H 12/19/23 13:27 Vitals Last Vital Signs Temp 98.6 F 12/22/23 08:00 Pulse 104 H 12/22/23 08:00 Resp 18 12/22/23 08:10 BP 173/79 12/22/23 08:00 Pulse Ox 93 12/22/23 08:00 O2 Del Method Room Air 12/22/23 05:30 Discharge Plan Discharge Patient Disposition: Home Condition: Stable Prescriptions: New lidocaine-prilocaine 2.5-2.5 % Cream 2 applic topical Q12H Qty: 30 0RF gabapentin 300 mg Capsule 300 mg PO BID Qty: 60 1RF valacyclovir 1 gram Tablet 1,000 mg PO Q8H Qty: 21 0RF sodium chloride 1,000 mg Tablet,Soluble 1,000 mg PO Q12H Qty: 10 0RF Continued ascorbate calcium (vitamin C) 500 mg tablet See Rx Instructions .ROUTE .COMPLEX Rx Instructions: TAKE 1000 MG BY MOUTH 2 OR 3 TIMES WEEKLY. magnesium 200 mg tablet See Rx Instructions .ROUTE .COMPLEX Rx Instructions: TAKE 200 MG BY MOUTH 2 OR 3 TIMES WEEKLY. lactulose 10 gram/15 mL solution 0.75 ml PO BID oxycodone 5 mg tablet 5 mg PO Q8H PRN (Reason: pain) 30 Days Qty: 90 0RF Vitamin D3 125 mcg (5,000 unit) Tablet See Rx Instructions .ROUTE .COMPLEX Rx Instructions: TAKE 125 mcg BY MOUTH 2 OR 3 TIMES WEEKLY. levothyroxine 100 mcg tablet 100 mcg PO DAILY Discharge Orders: Discharge Order (Routine); Ordered 12/22/23 Ordered By: Julianne Daniel Referrals: René Weems MD [Primary Care Provider] - Antonio Suarez FNP [Nurse Practitioner] - 7-10 days Discharge Diet: Diabetic Discharge Activity: Increase activity as tolerated Patient Instructions: Opioid Safety Discharge Attestations Time Spent in Discharge Care*: greater than 30 min Quality Metrics Clinical Quality Measures [ No reported AMI, CVA or VTE this stay] Coding Level of Care Code Acute Code for Chg Fwd Diagnoses Type 2 diabetes mellitus without complication, without long-term current use of insulin E11.9 Diabetes mellitus complication status: without complication Diabetes mellitus [facility] insulin use: without [facility] use Constipation K59.00 Acute UTI N39.0 Acute hyponatremia E87.1 Shingles B02.8 Herpes zoster complications: unspecified herpes zoster complication
[2023-12-22] MEDS: potassium chloride ER 20 mEq Tablet 40 MEQ PO (10:43)
[2023-12-22 11:40] LABS: Glucose Point of Care 290 mg/dL (70-110)
--- NOTE | 2023-12-22 12:33 | PC.NURSE ---
Prescriptions called in to [facility] in [place] except the lidocaine-prilocaine they will need to get it from the pharmacy in there town.
[2023-12-25 15:18] LABS: Osmolality Serum 262 mOsm/kg (278-305)
[2023-12-25 16:00] LABS: Osmolality Urine 133 mOsm/kg (50-1200)
== END 2023-12-22 12:34 | disposition home or self-care (01) | DRG 641 ==
LOC: ER 15:41 → MEDSURG 15:49
PROVIDERS: Admitting Provider Internal Medicine; Emergency Provider Nurse Practitioner Family; PCP Family Medicine; Visit Provider Internal Medicine
DX: E87.1 Hypo-osmolality and hyponatremia (principal); N39.0 Urinary tract infection, site not specified; B02.9 Zoster without complications; E11.9 Type 2 diabetes mellitus without complications; G89.29 Other chronic pain; E03.9 Hypothyroidism, unspecified; E86.0 Dehydration; K59.00 Constipation, unspecified
CPT/HCPCS: 36415; 36416; 80048; 80053; 81001; 82962; 83735; 83930; 83935; 84145; 84295; 84443; 84550; 85025; 87077; 87086; 87186; 96365; 96372; 96375; 99285; J0696; J1650; J1815; J2270; J7030

== ENCOUNTER 2023-12-30 04:12 | Inpatient (IN) | payer MEDICARE, SELFPAY ==
[2023-12-30] VITALS (9 sets, daily range): BP systolic 124–172; BP diastolic 62–87; PULSE 96–119; RESP 12–22; TEMP 36.6–37.1; O2SAT 91–98; BMI 23.0
--- NOTE | 2023-12-30 04:32 | XRR_ITS ---
PROCEDURE INFORMATION: Exam: XR Abdomen Exam date and time: 12/30/2023 4:46 AM Age: 88 years old Clinical indication: Patient HX: C/O constipation TECHNIQUE: Imaging protocol: Radiologic exam of the abdomen. Views: Frontal supine view of the abdomen. 1 View. COMPARISON: CR XR KUB [id number] 04/03/2023 11:40 AM FINDINGS: Gastrointestinal tract: No small bowel dilation or free air identified. The colon is quite fecal filled. Absent gallbladder. Vasculature: Advanced diffuse vascular calcification noted. Bones/joints: Unremarkable. XR/XR KUB portable [id number] IMPRESSION: 1. No small bowel obstruction or free air. 2. Advanced constipation is likely.
[2023-12-30 04:42] LABS: Add Urine Microscopic? NO; Charge for UA Resulting for Rev
[2023-12-30 04:48] LABS: Bilirubin Urine Neg (Negative); Blood Urine Neg (Negative); Glucose Urine UA 2+ (Normal); Ketones Urine 1+ (Negative); Leukocyte Esterase Urine Negative (Negative); Nitrate Urine Negative (Negative); Protein Urine Neg (Negative); Specific Gravity, Urine 1.005 (1.005-1.030); Urine Appearance Clear (CLEAR); Urine Color Colorless (Yellow); Urobilinogen Urine Norm (Negative); pH Urine 7 (5-7)
[2023-12-30] MEDS: ondansetron 2 mg/ML SDV 2 mL 4 MG IVP (05:05)
[2023-12-30] MEDS: morphine 4 mg/mL SDV 1 mL IVP (05:05)
--- NOTE | 2023-12-30 05:09 | ED_ITS ---
Documented by User: Josafat Guerrero DO 12/30/23 19:26 HPI - Back Pain/Injury 2 General: Chief Complaint: ER Hold Stated Complaint: BACK PAIN Time Seen by Provider: 12/30/23 04:17 History of Present Illness: 88-year-old female lives at home alone. She presents with multiple complaints including ongoing and continued back pain, shingles pain, abdominal pain related to constipation, and inability to fully empty her bladder. She denies fever. She denies vomiting. She is taking oxycodone at home without much relief. Associated symptoms: Reports abdominal pain; Deny fever(s), nausea or vomiting Review of Systems 2 Const: Denies: fever(s) Eyes: Denies: change in vision ENMT: Denies: throat pain Card: Denies: chest pain or palpitations Resp: Denies: dyspnea GI: Reports: abdominal pain; Denies: nausea or vomiting : Denies: flank pain Musc: Reports: back pain PFSH ED 2 PFSH: Medical History (Updated 12/30/23 @ 09:30 by Subhash Zendejas MD) Constipation Type 2 diabetes mellitus GERD (gastroesophageal reflux disease) Hiatal hernia Compression fracture of thoracic spine, non-traumatic Cervical lymphadenopathy Chronic pain Hypothyroid Surgical History (Updated 12/30/23 @ 09:27 by Subhash Zendejas MD) History of cholecystectomy History of hysterectomy Social History Smoking and tobacco/nicotine status: never used tobacco/nicotine Second hand smoke exposure: No Alcohol intake: never Substance/Drug Use: never Physical Exam 2 Const: GENERAL APPEARANCE: cooperative and frail appearing HENMT: COMMON NORMALS: normocephalic, atraumatic and Normal external nose present HEAD & SCALP: normocephalic and atraumatic FACE & SINUS: normal facial exam and face symmetric NOSE: Normal external nose present Eye: COMMON NORMALS: Equal, round and reactive pupils present and EOMs intact bilaterally PUPIL: Yes Equal, round and reactive pupils present Neck/C-Spine: GENERAL: Yes trachea midline Chest: CHEST: Yes Symmetrical chest wall rise Resp: COMMON NORMALS: normal respiratory effort, No retractions, No use of accessory muscles and clear to auscultation bilaterally AUSCULTATION: clear to auscultation bilaterally Cardio: COMMON NORMALS: regular rate and regular rhythm RATE: regular rate RHYTHM: regular rhythm GI: INSPECTION: Yes abdominal distension AUSCULTATION: Yes Hypoactive bowel sounds present PALPATION: Yes Tenderness to palpation present (GI) (Diffusely) and No Guarding due to palpation present (GI) Extremity: GENERAL: Yes edema (Mild bilaterally) Neuro: NATALI COMA SCALE: document GCS findings Dexter coma scale eye opening: Spontaneous Dexter coma scale verbal response: Orientated Natali coma scale motor response: Obey commands Dexter coma scale total score: 15 S ENSORY EXAM: Yes extremities (intact) Psych: COMMON NORMALS: speech normal SPEECH: Yes normal speech Skin: NARRATIVE SKIN EXAM: Dry vesicular rash to the mid back. Course 2 Vital Signs: Vital signs: Vital Signs Temperature 98.4 F 12/30/23 18:10 Pulse Rate 106 H 12/30/23 18:10 Respiratory Rate 16 12/30/23 18:30 Blood Pressure 129/71 12/30/23 18:10 Pulse Oximetry 91 12/30/23 18:10 Oxygen Delivery Me thod Room Air 12/30/23 18:10 MDM - Back Pain/Injury Medical Decision Making 88-year-old female with a complaint of constipation, urine retention, and mid back pain. Her sodium is 120. Stephenson was placed with 1200 mL of clear urine out. She is given a fluid bolus of normal saline. Creatinine is 0.5. Labs 12/30/23 05:00 12/30/23 17:11 Radiology Impressions KUB X-Ray 12/30/23 04:32 IMPRESSION: 1. No small bowel obstruction or free air. 2. Advanced constipation is likely. Abdomen/Pelvis CT 12/30/23 06:37 IMPRESSION: Negative for acute abdominopelvic pathology. Chest X-Ray 12/30/23 09:32 IMPRESSION: No acute intrathoracic findings. Head CT 12/30/23 11:17 IMPRESSION: 1. No acute intracranial abnormality. 2. Left frontal, maxillary, and ethmoid sinusitis. Laboratory Results WBC 11.65 10^3/uL (3.29-11.43) H 12/30/23 05:00 RBC 4.48 10^6/uL (3.85-5.65) 12/30/23 05:00 Hgb 13.80 g/dL (11.27-16.99) 12/30/23 05:00 Hct 39.8 % (36-47) 12/30/23 05:00 MCV 88.8 fl (85-98) 12/30/23 05:00 MCH 30.8 pg (27-33) 12/30/23 05:00 MCHC 34.7 g/dL (30-55) 12/30/23 05:00 RDW 13.0 % (12.1-15.1) 12/30/23 05:00 Plt Count 375 10^3/cmm (157-399) 12/30/23 05:00 MPV 9.1 fL (7.4-10.4) 12/30/23 05:00 Neut % (Auto) 70.3 % 12/30/23 05:00 Lymph % (Auto) 18.5 % 12/30/23 05:00 [place] % (Auto) 9.5 % 12/30/23 05:00 Eos % (Auto) 0.8 % 12/30/23 05:00 Baso % (Auto) 0.6 % 12/30/23 05:00 Neut # (Auto) 8.19 10^3/uL (1.8-7.7) H 12/30/23 05:00 Lymph # (Auto) 2.2 10^3/uL (0.8-4.8) 12/30/23 05:00 [place] # (Auto) 1.1 10^3/uL (0.2-0.9) H 12/30/23 05:00 Eos # (Auto) 0.1 10^3/uL (0.0-0.8) 12/30/23 05:00 Baso # (Auto) 0.1 10^3/uL (0.0-0.1) 12/30/23 05:00 Nucleated RBC % (auto) 0 % 12/30/23 05:00 Nucleated RBCs # 0.0 /100WBC 12/30/23 05:00 Sodium 120 mmol/L (136-145) L 12/30/23 05:29 Potassium 3.7 mmol/L (3.5-5.1) 12/30/23 05:29 Chloride 81 mmol/L (98-107) L 12/30/23 05:29 Carbon Dioxide 27 mmol/L (22-29) 12/30/23 05:29 Anion Gap 15.7 (5-19) 12/30/23 05:29 BUN 5 mg/dL (8-23) L 12/30/23 05:29 Creatinine 0.4 mg/dL (0.5-0.9) L 12/30/23 05:29 GFR Calculation Not Reportable 12/30/23 05:29 Glucose 263 mg/dL (65-115) H 12/30/23 05:29 Estimat Average Glucose 226 12/30/23 05:00 Hemoglobin A1c 9.5 % (4.0-6.0) H 12/30/23 05:00 Calculated Osmolality 256 mOsm/kg (285-295) L 12/30/23 05:29 Lactic Acid 1.1 mmol/L (0.5-2.2) 12/30/23 05:29 Calcium 9.8 mg/dL (8.5-10.5) 12/30/23 05:29 Total Bilirubin 0.7 mg/dL (0.15-1.2) 12/30/23 05:29 AST 47 U/L (0-32) H 12/30/23 05:29 ALT 41 U/L (0-33) H 12/30/23 05:29 Alkaline Phosphatase 137 U/L (35-105) H 12/30/23 05:29 C-Reactive Protein 3.0 mg/L (0.0-4.9) 12/30/23 05:29 NT-Pro-B Natriuret Pep 183 pg/mL (0-450) 12/30/23 05:29 Total Protein 7.8 g/dL (6.6-8.7) 12/30/23 05:29 Albumin 3.9 g/dL (3.5-5.2) 12/30/23 05:29 Globulin 3.9 g/dL (1.3-4.6) 12/30/23 05:29 Random Cortisol 20.03 ug/dL (2.47-19.5) H 12/30/23 05:29 Urine Color Colorless (Yellow) 12/30/23 04:27 Urine Appearance Clear (CLEAR) 12/30/23 04:27 Urine pH 7 (5-7) 12/30/23 04:27 Ur Specific [place] 1.005 (1.005-1.030) 12/30/23 04:27 Urine Protein Neg (Negative) 12/30/23 04:27 Urine Glucose (UA) 2+ (Normal) H 12/30/23 04:27 Urine Ketones 1+ (Negative) H 12/30/23 04:27 Urine Blood Neg (Negative) 12/30/23 04:27 Urine Nitrate Negative (Negative) 12/30/23 04:27 Urine Bilirubin Neg (Negative) 12/30/23 04:27 Urine Urobilinogen Norm mg/dL (Negative) 12/30/23 04:27 Ur Leukocyte Esterase Negative (Negative) 12/30/23 04:27 Discharge Plan Discharge Patient Disposition: Admitted As Inpatient Admit Provider: Subhash Zendejas Clinical Impression: Acute hyponatremia, Acute on chronic urinary retention Condition: Stable Sign Out Sign Out Data: Patient Sign Out occurred on 12/30/23 at 07:19. Patient's care was discussed, and care was transferred from Josafat Guerrero DO to Reyes Shaw DO. Coding Level of Care Code ED Professor Of Nursing for Chg Fwd Documented by User: Reyes Shaw DO 12/30/23 08:48 HPI - Back Pain/Injury 2 General: Chief Complaint: ER Hold Stated Complaint: BACK PAIN Time Seen by Provider: 12/30/23 04:17 [facility] ED 2 PFSH: Medical History (Updated 12/30/23 @ 09:30 by Subhash Zendejas MD) Constipation Type 2 diabetes mellitus GERD (gastroesophageal reflux disease) Hiatal hernia Compression fracture of thoracic spine, non-traumatic Cervical lymphadenopathy Chronic pain Hypothyroid Surgical History (Updated 12/30/23 @ 09:27 by Subhash Zendejas MD) History of cholecystectomy History of hysterectomy Social History Smoking and tobacco/nicotine status: never used tobacco/nicotine Second hand smoke exposure: No Alcohol intake: never Substance/Drug Use: never Physical Exam 2 Neuro: NATALI COMA SCALE: document GCS findings Dexter coma scale total score: 15 Course 2 Vital Signs: Vital signs: Vital Signs Temperature 98.4 F 12/30/23 18:10 Pulse Rate 106 H 12/30/23 18:10 Respiratory Rate 16 12/30/23 18:30 Blood Pressure 129/71 12/30/23 18:10 Pulse Oximetry 91 12/30/23 18:10 Oxygen Delivery Me thod Room Air 12/30/23 18:10 MDM - Back Pain/Injury Medical Decision Making 88-year-old female with a complaint of constipation, urine retention, and mid back pain. Her sodium is 120. Stephenson was placed with 1200 mL of clear urine out. She is given a fluid bolus of normal saline. Creatinine is 0.5. Care assumed at change of shift. CT does not show any kidney ureter or bladder pathology. Dr. Odom did see the patient Placed Stephenson reported 1300 mL out after Stephenson placement. Patient is profoundly hyponatremic. Discussed with hospitalist will place on observation orders written Medical Records I reviewed the patient's medical records. Labs I reviewed the patient's lab results. 12/30/23 05:00 12/30/23 17:11 Radiology Impressions KUB X-Ray 12/30/23 04:32 IMPRESSION: 1. No small bowel obstruction or free air. 2. Advanced constipation is likely. Abdomen/Pelvis CT 12/30/23 06:37 IMPRESSION: Negative for acute abdominopelvic pathology. Chest X-Ray 12/30/23 09:32 IMPRESSION: No acute intrathoracic findings. Head CT 12/30/23 11:17 IMPRESSION: 1. No acute intracranial abnormality. 2. Left frontal, maxillary, and ethmoid sinusitis. Laboratory Results WBC 11.65 10^3/uL (3.29-11.43) H 12/30/23 05:00 RBC 4.48 10^6/uL (3.85-5.65) 12/30/23 05:00 Hgb 13.80 g/dL (11.27-16.99) 12/30/23 05:00 Hct 39.8 % (36-47) 12/30/23 05:00 MCV 88.8 fl (85-98) 12/30/23 05:00 MCH 30.8 pg (27-33) 12/30/23 05:00 MCHC 34.7 g/dL (30-55) 12/30/23 05:00 RDW 13.0 % (12.1-15.1) 12/30/23 05:00 Plt Count 375 10^3/cmm (157-399) 12/30/23 05:00 MPV 9.1 fL (7.4-10.4) 12/30/23 05:00 Neut % (Auto) 70.3 % 12/30/23 05:00 Lymph % (Auto) 18.5 % 12/30/23 05:00 [place] % (Auto) 9.5 % 12/30/23 05:00 Eos % (Auto) 0.8 % 12/30/23 05:00 Baso % (Auto) 0.6 % 12/30/23 05:00 Neut # (Auto) 8.19 10^3/uL (1.8-7.7) H 12/30/23 05:00 Lymph # (Auto) 2.2 10^3/uL (0.8-4.8) 12/30/23 05:00 [place] # (Auto) 1.1 10^3/uL (0.2-0.9) H 12/30/23 05:00 Eos # (Auto) 0.1 10^3/uL (0.0-0.8) 12/30/23 05:00 Baso # (Auto) 0.1 10^3/uL (0.0-0.1) 12/30/23 05:00 Nucleated RBC % (auto) 0 % 12/30/23 05:00 Nucleated RBCs # 0.0 /100WBC 12/30/23 05:00 Sodium 120 mmol/L (136-145) L 12/30/23 05:29 Potassium 3.7 mmol/L (3.5-5.1) 12/30/23 05:29 Chloride 81 mmol/L (98-107) L 12/30/23 05:29 Carbon Dioxide 27 mmol/L (22-29) 12/30/23 05:29 Anion Gap 15.7 (5-19) 12/30/23 05:29 BUN 5 mg/dL (8-23) L 12/30/23 05:29 Creatinine 0.4 mg/dL (0.5-0.9) L 12/30/23 05:29 GFR Calculation Not Reportable 12/30/23 05:29 Glucose 263 mg/dL (65-115) H 12/30/23 05:29 Estimat Average Glucose 226 12/30/23 05:00 Hemoglobin A1c 9.5 % (4.0-6.0) H 12/30/23 05:00 Calculated Osmolality 256 mOsm/kg (285-295) L 12/30/23 05:29 Lactic Acid 1.1 mmol/L (0.5-2.2) 12/30/23 05:29 Calcium 9.8 mg/dL (8.5-10.5) 12/30/23 05:29 Total Bilirubin 0.7 mg/dL (0.15-1.2) 12/30/23 05:29 AST 47 U/L (0-32) H 12/30/23 05:29 ALT 41 U/L (0-33) H 12/30/23 05:29 Alkaline Phosphatase 137 U/L (35-105) H 12/30/23 05:29 C-Reactive Protein 3.0 mg/L (0.0-4.9) 12/30/23 05:29 NT-Pro-B Natriuret Pep 183 pg/mL (0-450) 12/30/23 05:29 Total Protein 7.8 g/dL (6.6-8.7) 12/30/23 05:29 Albumin 3.9 g/dL (3.5-5.2) 12/30/23 05:29 Globulin 3.9 g/dL (1.3-4.6) 12/30/23 05:29 Random Cortisol 20.03 ug/dL (2.47-19.5) H 12/30/23 05:29 Urine Color Colorless (Yellow) 12/30/23 04:27 Urine Appearance Clear (CLEAR) 12/30/23 04:27 Urine pH 7 (5-7) 12/30/23 04:27 Ur Specific [place] 1.005 (1.005-1.030) 12/30/23 04:27 Urine Protein Neg (Negative) 12/30/23 04:27 Urine Glucose (UA) 2+ (Normal) H 12/30/23 04:27 Urine Ketones 1+ (Negative) H 12/30/23 04:27 Urine Blood Neg (Negative) 12/30/23 04:27 Urine Nitrate Negative (Negative) 12/30/23 04:27 Urine Bilirubin Neg (Negative) 12/30/23 04:27 Urine Urobilinogen Norm mg/dL (Negative) 12/30/23 04:27 Ur Leukocyte Esterase Negative (Negative) 12/30/23 04:27 All radiology interpretation(s) finalized by discharge Discharge Plan Discharge Patient Disposition: Admitted As Inpatient Admit Provider: Subhash Zendejas Clinical Impression: Acute hyponatremia, Acute on chronic urinary retention Condition: Stable Sign Out Sign Out Data: Patient Sign Out occurred on 12/30/23 at 07:19. Patient's care was discussed, and care was transferred from Josafat Guerrero DO to Reyes Shaw DO. Coding Level of Care Code ED Professor Of Nursing for Priyanka Banks
[2023-12-30 05:11] LABS: Basophils # 0.1 10^3/uL (0.0-0.1); Basophils % 0.6 %; Eosinophils # 0.1 10^3/uL (0.0-0.8); Eosinophils % 0.8 %; Hematocrit 39.8 % (36-47); Lymphocytes # 2.2 10^3/uL (0.8-4.8); Lymphocytes % 18.5 %; Mean Corpuscular HGB Conc 34.7 g/dL (30-55); Mean Corpuscular Hemoglobin 30.8 pg (27-33); Mean Corpuscular Volume 88.8 fl (85-98); Mean Platelet Volume 9.1 fL (7.4-10.4); Monocytes # 1.1 10^3/uL (0.2-0.9); Monocytes % 9.5 %; Neutrophils # 8.19 10^3/uL (1.8-7.7); Neutrophils % 70.3 %; Nucleated Red Blood Cells % 0 %; Platelet Count 375 10^3/cmm (157-399); Red Blood Count 4.48 10^6/uL (3.85-5.65); White Blood Count 11.65 10^3/uL (3.29-11.43)
[2023-12-30 06:00] LABS: Lactic Sepsis W/Reflex 1.1 mmol/L (0.5-2.2)
[2023-12-30 06:01] LABS: Alanine Aminotransferase 41 U/L (0-33); Albumin Level 3.9 g/dL (3.5-5.2); Alkaline Phosphatase 137 U/L (35-105); Anion Gap 15.7 (5-19); Aspartate Amino Transferase 47 U/L (0-32); Blood Urea Nitrogen 5 mg/dL (8-23); Calcium 9.8 mg/dL (8.5-10.5); Carbon Dioxide 27 mmol/L (22-29); Chloride 81 mmol/L (98-107); Globulin 3.9 g/dL (1.3-4.6); Glucose 263 mg/dL (65-115); Osmolality Calculated 256 mOsm/kg (285-295); Potassium 3.7 mmol/L (3.5-5.1); Sodium 120 mmol/L (136-145); Total Bilirubin 0.7 mg/dL (0.15-1.2); Total Protein 7.8 g/dL (6.6-8.7)
[2023-12-30] MEDS: HYDROmorphone 1 mg/mL INJ 1 mL IVP (06:22)
--- NOTE | 2023-12-30 06:37 | CTR_ITS ---
PROCEDURE INFORMATION: Exam: CT Abdomen And Pelvis Without Contrast Exam date and time: 12/30/2023 6:42 AM Age: 88 years old Clinical indication: Abdominal pain; Generalized; Prior surgery; Surgery date: 6+ months; Surgery type: Gb; Patient HX: Diffuse abd pain with urinary retention; Additional info: Urinary retention abdominal pain TECHNIQUE: Imaging protocol: Computed tomography of the abdomen and pelvis without contrast. Radiation optimization: All CT scans at this facility use at least one of these dose optimization techniques: automated exposure control; mA and/or kV adjustment per patient size (includes targeted exams where dose is matched to clinical indication); or iterative reconstruction. COMPARISON: CR (ABDOMEN, ) 12/30/2023 4:46 AM RADIATION DOSE METRICS: Total DLP (mGy-cm): 398.8 FINDINGS: Lungs: [id number] diffuse bronchiectasis changes in the medial lower lobes bilaterally. Liver: Normal. No mass. Gallbladder and bile ducts: Cholecystectomy. Mild common bile duct prominence. Negative for intrahepatic biliary dilation. Pancreas: Atrophic pancreas. Negative for focal lesion. Spleen: Normal. No splenomegaly. Adrenal glands: Normal. No mass. Kidneys and ureters: Normal. No hydronephrosis. Stomach and bowel: Moderate colonic fecal volume. Negative for bowel obstruction or perforation. Negative for localized inflammatory changes. Appendix: No evidence of appendicitis. Intraperitoneal space: Unremarkable. No free air. No significant fluid collection. Vasculature: Diffuse calcified plaques throughout abdominal aorta. Negative for aneurysm. Lymph nodes: Unremarkable. No enlarged lymph nodes. Urinary bladder: Stephenson catheter within the bladder. No focal bladder wall abnormality is identified. No significant bladder wall thickening or trabeculation identified. Reproductive: Hysterectomy. Bones/joints: Grade 2 L4-L5 spondylolisthesis. Grade 1 L5-S1 spondylolisthesis. Diffuse lumbar facet joint arthropathy. Negative for acute fracture. Soft tissues: Unremarkable. CT/CT kidney stone [id number] IMPRESSION: Negative for acute abdominopelvic pathology.
--- NOTE | 2023-12-30 09:10 | P.HP_ITS ---
Documented by User: APRIL Davenport STDNT 12/30/23 10:24 Providers/Chief Complaint 2 Primary Care Provider: Jonah Moran MD Chief Complaint: BACK PAIN History of Present Illness Kassy Baldwin is a 88 year old female who presents to the ED with back pain from shingles around the T9 dermatome for 1 month. There are no active lesions at this time although scars are present, and there is significant nerve pain. Patient is significantly constipated not having a bowel movement in 8 days, she has urinary retention. Patient has only been consuming a small amount of broth and applesauce. Patient reports being slightly dizzy, and nauseous at times and having significant green vomiting yesterday. She was previously hospitalized on 12/19/2023 for for active shingles infection coinciding with an self-limiting URI treated with oxycodone, gabapentin, lidocaine patch and Valtrex. Patient had UTI and acute hyponatremia at this time which were treated. Patient has a past medical history of type 2 diabetes mellitus thoracic vertebral compression fracture level T9, hiatal hernia, hypothyroidism, cardiovascular disease, squamous cell carcinoma of the skin, chronic urinary retention, constipation and bilateral knee pain. Past surgical history of hysterectomy, cholecystectomy. Medications/Allergies Home Medications Medication Instructions Recorded Confirmed Last Taken Type ascorbate calcium (vitamin C) 500 See Rx Instructions .Route .COMPLEX 02/20/23 12/30/23 Unknown History mg tablet magnesium 200 mg tablet See Rx Instructions .Route .COMPLEX 02/20/23 12/30/23 Unknown History oxycodone 5 mg tablet 5 mg PO Q8H PRN pain 30 days #90 11/26/23 12/30/23 12/29/23 Rx tabs lactulose 10 gram/15 mL oral 0.75 ml PO BID 12/18/23 12/30/23 12/29/23 History solution cholecalciferol (vitamin D3) 125 See Rx Instructions .Route .COMPLEX 12/19/23 12/30/23 Unknown History mcg (5,000 unit) tablet (Vitamin D3) levothyroxine 100 mcg tablet 100 mcg PO DAILY 12/19/23 12/30/23 12/29/23 History lidocaine-prilocaine 2.5 %-2.5 % 2 applic topical Q12H #30 grams 12/22/23 12/30/23 Unknown Rx topical cream valacyclovir 1 gram tablet 1,000 mg PO Q8H #21 tabs 12/22/23 12/30/23 12/29/23 Rx Allergies Allergy/AdvReac Type Severity Reaction Status Date / Time prednisone Allergy Severe sick Verified 12/19/23 12:58 insulin detemir Allergy Intermediate rapid Verified 12/19/23 12:58 [From Levemir U-100 Insulin] heart beat metformin Allergy Intermediate unknown Verified 12/19/23 12:58 gabapentin Allergy ADR-Gastrointestinal Verified 12/30/23 07:54 Upset Macrolide Antibiotics AdvReac Mild rash/nausea Verified 12/19/23 12:58 ofloxacin [From Floxin] AdvReac Mild rash/nausea Verified 12/19/23 12:58 penicillin G AdvReac Mild rash Verified 12/19/23 12:58 Sulfa (Sulfonamide AdvReac Mild rash Verified 12/19/23 12:58 Antibiotics) codiene AdvReac Mild nausea/itch Uncoded 12/19/23 12:58 ng PFSH Acute 2 PFSH: Medical History (Updated 12/30/23 @ 09:30 by Subhash Zendejas MD) Constipation Type 2 diabetes mellitus GERD (gastroesophageal reflux disease) Hiatal hernia Compression fracture of thoracic spine, non-traumatic Cervical lymphadenopathy Chronic pain Hypothyroid Surgical History (Updated 12/30/23 @ 09:27 by Subhash Zendejas MD) History of cholecystectomy History of hysterectomy Social History Smoking and tobacco/nicotine status: never used tobacco/nicotine Second hand smoke exposure: No Alcohol intake: never Substance/Drug Use: never Vitals/I&O/Wt Last Vital Signs Temp 97.9 F 12/30/23 04:14 Pulse 106 H 12/30/23 09:00 Resp 12 12/30/23 09:00 BP 124/62 12/30/23 06:38 Pulse Ox 97 12/30/23 09:00 O2 Del Method Room Air 12/30/23 04:14 Weight last 48 hrs Weight 130 lb Physical Exam 2 Narrative: General patient is oriented to person place time and situation but is lethargic and slightly confused HEENT normocephalic atraumatic neck supple no lymphadenopathy, EOMI PERRL, hearing intact, normal mucosa Cardiac normal rhythm and rate, holosystolic 3/6 murmur heard best in left sternal border fifth intercostal space, right radial pulse intact, dorsal pedal pulse normal on left decreased on right, right lower extremity is cold compared to left, capillary refill <1sec throughout Pulmonary breath sounds normal Abdomen no pain deferred Stephenson noted Extremities weakness and decreased movement in bilateral lower extremities, upper extremity bruises noted around IV site Neurologic no focal deficits, lethargy, confusion Psych dysthymic mood and affect Const: ORIENTATION/CONSCIOUSNESS: Yes confused and Yes lethargic Urinary Catheter Management: Tsephenson Latex: Cath Placed During This Visit: yes Reason for Continuing Indwelling Catheter: Acute Urinary Retention or Obstruction Urinary Catheter Date of Insertion: 12/30/23 Urinary Catheter Time of Insertion: 04:45 Data 12/30/23 05:00 12/30/23 05:29 A&P Assessment and plan (1) Hyponatremia: Patient has likely has hypervolemic hyponatremia, with edema and low urine osmolalit. Start IV hypertonic saline 150 mL over 20 minutes repeat until rise of sodium 5 meq/L Monitor sodium level at 1 6 and 12 hours (2) Constipation: Patient likely has constipation secondary to opioid use, has tried multiple laxatives Start bisacodyl 10 mg daily and Continue lactulose (3) Acute encephalopathy: correct hyponatremia see above (4) Shingles: Continue Valtrex start Gabapentin Start topical capsaicin cream Continue oxycodone 5 mg p.o. Q8h as needed Discontinue lidocaine patch Qualifiers: Herpes zoster complications: unspecified herpes zoster complication Qualified Code(s): B02.8 - Zoster with other complications (5) Transaminitis: CBC CMP continue to monitor for change (6) Peripheral edema: Patient was given 1 dose of furosemide 20 mg IV push continue to monitor (7) Heart murmur: Order EKG patient is stable (8) Type 2 diabetes mellitus: Sliding scale insulin Carbohydrate controlled diet Qualifiers: Diabetes mellitus complication status: without complication Diabetes mellitus skilled nursing insulin use: without predatory animal exterminator use Qualified Code(s): E11.9 - Type 2 diabetes mellitus without complications Plan Full correction of serum sodium should treat acute encephalopathy Contact long term facility for rehab in [place] near patient's family for discharge in 2 days Continue Valtrex and manage patient's pain for shingles draw CBC CMP tomorrow morning to monitor for changes in liver enzymes and sodium Allow natural . Discussed with patient and daughters Loveconorx will suffice for DVT prophylaxis Coding Level of Care Code 84087 Diagnoses Hyponatremia E87.1 Constipation K59.00 Acute encephalopathy G93.40 Shingles B02.8 Herpes zoster complications: unspecified herpes zoster complication Transaminitis R74.01 Peripheral edema R60.0 Heart murmur R01.1 Type 2 diabetes mellitus without complication, without long-term current use of insulin E11.9 Diabetes mellitus complication status: without complication Diabetes mellitus predatory animal exterminator insulin use: without predatory animal exterminator use Time Spent (min) 57 Documented by User: Subhash Zendejas MD 12/30/23 10:44 Providers/Chief Complaint 2 Admitting Physician: Subhash Zendejas MD Chief Complaint: BACK PAIN History of Present Illness Kassy Baldwin is a 88 year old female with past medical history of type 2 diabetes mellitus thoracic vertebral compression fracture level T9, hiatal hernia, hypothyroidism, cardiovascular disease, squamous cell carcinoma of the skin, chronic urinary retention, constipation and bilateral knee pain.who presents to the ED with complaints of back pain, confusion, vomiting some bilious liquid associated with nausea, no bowel movement in 8 days. She had been previously hospitalized with shingles 8 days ago. She is still on Valtrex. She denies any fever, significant cough. When asked where it hurts, she indicates her mid back where evidence of previous shingles is noted. Medications/Allergies Home Medications Medication Instructions Recorded Confirmed Last Taken Type ascorbate calcium (vitamin C) 500 See Rx Instructions .Route .COMPLEX 02/20/23 12/30/23 Unknown History mg tablet magnesium 200 mg tablet See Rx Instructions .Route .COMPLEX 02/20/23 12/30/23 Unknown History oxycodone 5 mg tablet 5 mg PO Q8H PRN pain 30 days #90 11/26/23 12/30/23 12/29/23 Rx tabs lactulose 10 gram/15 mL oral 0.75 ml PO BID 12/18/23 12/30/23 12/29/23 History solution cholecalciferol (vitamin D3) 125 See Rx Instructions .Route .COMPLEX 12/19/23 12/30/23 Unknown History mcg (5,000 unit) tablet (Vitamin D3) levothyroxine 100 mcg tablet 100 mcg PO DAILY 12/19/23 12/30/23 12/29/23 History lidocaine-prilocaine 2.5 %-2.5 % 2 applic topical Q12H #30 grams 12/22/23 12/30/23 Unknown Rx topical cream valacyclovir 1 gram tablet 1,000 mg PO Q8H #21 tabs 12/22/23 12/30/23 12/29/23 Rx Allergies Allergy/AdvReac Type Severity Reaction Status Date / Time prednisone Allergy Severe sick Verified 12/19/23 12:58 insulin detemir Allergy Intermediate rapid Verified 12/19/23 12:58 [From Levemir U-100 Insulin] heart beat metformin Allergy Intermediate unknown Verified 12/19/23 12:58 gabapentin Allergy ADR-Gastrointestinal Verified 12/30/23 07:54 Upset Macrolide Antibiotics AdvReac Mild rash/nausea Verified 12/19/23 12:58 ofloxacin [From Floxin] AdvReac Mild rash/nausea Verified 12/19/23 12:58 penicillin G AdvReac Mild rash Verified 12/19/23 12:58 Sulfa (Sulfonamide AdvReac Mild rash Verified 12/19/23 12:58 Antibiotics) codiene AdvReac Mild nausea/itch Uncoded 12/19/23 12:58 ng PFSH Acute 2 PFSH: Medical History (Updated 12/30/23 @ 09:30 by Subhash Zendejas MD) Constipation Type 2 diabetes mellitus GERD (gastroesophageal reflux disease) Hiatal hernia Compression fracture of thoracic spine, non-traumatic Cervical lymphadenopathy Chronic pain Hypothyroid Surgical History (Updated 12/30/23 @ 09:27 by Subhash Zendejas MD) History of cholecystectomy History of hysterectomy Social History Smoking and tobacco/nicotine status: never used tobacco/nicotine Second hand smoke exposure: No Alcohol intake: never Substance/Drug Use: never Physical Exam 2 Narrative: General patient is oriented to person place time and situation but is slightly slow to respond HEENT normocephalic atraumatic neck supple no lymphadenopathy, EOMI PERRL, hearing intact, normal mucosa Cardiac normal rhythm and rate, holosystolic 3/6 murmur heard best in left sternal border fifth intercostal space, right radial pulse intact, dorsal pedal pulse normal on left decreased on right, right lower extremity is cold compared to left, capillary refill <1sec throughout. No skin breakdown. Cap refill is less than 4 seconds bilaterally Pulmonary breath sounds normal Abdomen no pain deferred Stephenson noted, urine noted in bag. Residual urine when catheter was placed with greater than 1 L Extremities weakness and decreased movement in bilateral lower extremities, upper extremity bruises noted around IV site Neurologic no focal deficits, lethargy, confusion Urinary Catheter Management: Stephenson Latex: Cath Placed During This Visit: yes Data 12/30/23 05:00 12/30/23 05:29 Other Labs: LFTs are slightly high with AST of 47, ALT 41, alk phos of 137. CRP, total bili, mag, lactic acid, albumin and calcium are all within normal limits. A recent TSH was done on previous hospital stay normal A random cortisol was elevated as expected, which I ordered, and hemoglobin A1c is 9.5 which I ordered. Urinalysis, dip, is negative. Spec gravity is 1.005 Chest x-ray which I ordered demonstrates right hemidiaphragm elevation which is chronic and calcification of the aorta. I reviewed this personally. EKG I have ordered but is still pending. I will review this personally. Abdominal pelvic CT demonstrates no acute findings but at least a moderate to severe amount of stool is noted. KUB shows the same, which I reviewed. A&P Assessment and plan (1) Hyponatremia: Patient has likely has hypervolemic hyponatremia, with edema and low urine osmolalit. Will give a dose of Lasix 20 mg IV x 1 Will make sure she is not over hydrated BNP was checked and normal As hypervolemia hyponatremia is a possibility we will check an echocardiogram. Note that she has murmur as well. Repeat serum sodium this afternoon, around 3 PM Secondary to edema, will avoid salt tablets Will initiate some maintenance fluids at 75 cc an hour of normal saline. With the Lasix that should make her serum sodium increased. Will prove this by checking her lab is 3 PM stated above. Another factor could be her urinary retention which was significant. Alleviating the urinary retention by putting in the Stephenson may cause some diuresis as well. (2) Constipation: Patient likely has constipation secondary to opioid use, has tried multiple laxatives Initiate senna docusate 2 tablets twice daily along with lactulose 10 mL twice daily. Bisacodyl suppository as well. Monitor for bowel movements TSH again was checked and normal recently. This could be contributing to her urinary retention (3) Acute encephalopathy: Likely multifactorial. This may be secondary to her hyponatremia. This could be secondary to narcotics she receives at home. Urinary retention can play a role in the elderly as well. From my interaction with the patient this is likely already resolving. Secondary to her constellation of hyponatremia which is occurred on previous hospital stays as well as her encephalopathy will obtain a noncontrast CT head (4) Shingles: Continue Valtrex Start topical capsaicin cream Continue oxycodone 5 mg p.o. Q8h as needed Discontinue lidocaine patch Qualifiers: Herpes zoster complications: unspecified herpes zoster complication Qualified Code(s): B02.8 - Zoster with other complications (5) Transaminitis: CBC CMP continue to monitor for change May be secondary to acute illness. This could also be related to the Valtrex she recently received is mild ALT and AST elevations can occur with this. (6) Peripheral edema: (7) Heart murmur: EKG, echocardiogram Chest x-ray does not show cardiac enlargement (8) Type 2 diabetes mellitus: Sliding scale insulin Carbohydrate controlled diet Hemoglobin A1c is elevated. Qualifiers: Diabetes mellitus complication status: without complication Diabetes mellitus predatory animal exterminator insulin use: without predatory animal exterminator use Qualified Code(s): E11.9 - Type 2 diabetes mellitus without complications Plan Urinary retention. Stephenson placed. After treatment of constipation consider removal and close monitoring CBC CMP tomorrow morning to monitor for changes in liver enzymes and sodium Allow natural . Discussed with patient and daughters Lovenox will suffice for DVT prophylaxis Attestations 2 Medical Necessity Statement*: Will need greater than 2 midnight stay for evaluation and treatment of significant hyponatremia falling at least into the moderate category. Diagnoses Hyponatremia E87.1 Constipation K59.00 Acute encephalopathy G93.40 Shingles B02.8 Herpes zoster complications: unspecified herpes zoster complication Transaminitis R74.01 Peripheral edema R60.0 Heart murmur R01.1 Type 2 diabetes mellitus without complication, without long-term current use of insulin E11.9 Diabetes mellitus complication status: without complication Diabetes mellitus predatory animal exterminator insulin use: without skilled nursing use Time Spent (min) 57
--- NOTE | 2023-12-30 09:10 | ECG_ITS ---
[facility] Test Date: 2023-12-30 Pat Name: Kassy Baldwin Department: Room: [facility] Gender: Female Md Physician Dermatologist: : 1935 Requested By: Subhash Marie Order Number: [id number] Sofie MD: Jacinto Hobbs M.D. Measurements Intervals [place] Rate: 90 P: 1 OR: 194 QRS: 10 QRSD: 95 T: -25 QT: 354 QTc: 435 Interpretive Statements SINUS RHYTHM POSSIBLE ANTERIOR MYOCARDIAL INFARCTION , OF INDETERMINATE AGE [30 ms Q WAVE IN V3/V4, OR R < 0.2 mV IN V4] MODERATE T-WAVE ABNORMALITY, CONSIDER LATERAL ISCHEMIA [-0.1+ mV T-WAVE IN I/aVL/V5/V6] No previous ECG available for comparison Electronically Signed On 12-30-2023 11:46:28 CONDENSER OPERATOR by Jacinto Hobbs M.D. [id number]
--- NOTE | 2023-12-30 09:32 | XRR_ITS ---
PROCEDURE INFORMATION: Exam: XR Chest Exam date and time: 12/30/2023 9:36 AM Age: 88 years old Clinical indication: Cough; Additional info: Heart murmur TECHNIQUE: Imaging protocol: Radiologic exam of the chest. Views: 1 view. COMPARISON: CR XR chest 2V* [id number] 04/03/2023 11:53 AM FINDINGS: Lungs: No consolidation. Pleural spaces: No sizable pleural effusion or pneumothorax. Heart/Mediastinum: Stable cardiomediastinal silhouette. Vasculature: Atherosclerotic calcifications of the aortic arch. Diaphragm: Similar elevation of the right hemidiaphragm. Bones/joints: Unremarkable. XR/XR chest 1V portable [id number] IMPRESSION: No acute intrathoracic findings.
[2023-12-30] MEDS: FUROsemide 10 mg/mL SDV 2mL 20 MG IVP (09:37)
[2023-12-30 09:44] LABS: NT Pro B Type Natriuretic Pept 183 pg/mL (0-450)
[2023-12-30 09:45] LABS: Cortisol Random 20.03 ug/dL (2.47-19.5)
[2023-12-30 10:15] LABS: Estmated Average Glucose 226; Hemoglobin A1C 9.5 % (4.0-6.0)
--- NOTE | 2023-12-30 11:17 | USCV_ITS ---
Kassy Baldwin Age: 88 Gender: F : 1935 Exam Date: 12/30/2023 18:42 Ordering Phys: Subhash Zendejas MD Technologist: CHRIS Exam Location[place] [facility] [place] Indication: murmur BP: 142 / 73 HR: 105 Rhythm: Atrial fibrillation Technical Quality: Adequate MEASUREMENTS (Male / Female) Normal Values 2D ECHO LV Diastolic Diameter PLAX 3.4 cm 4.2 - 5.9 / 3.9 - 5.3 cm LV Systolic Diameter PLAX 1.7 cm IVS Diastolic Thickness 1.2 cm 0.6 - 1.0 / 0.6 - 0.9 cm IVS Systolic Thickness 1.6 cm LVPW Diastolic Thickness 1.1 cm 0.6 - 1.0 / 0.6 - 0.9 cm LVPW Systolic Thickness 1.5 cm LVOT Diameter 1.9 cm LV Ejection Fraction 2D Teich 81.4 % LV Ejection Fraction MOD 2C 66.6 % LV Ejection Fraction 2C AL 65.7 % LA Diameter 3.7 cm LA Width 3.3 cm LA Height 5.0 cm RA Width 3.6 cm RA Height 5.1 cm Aorta at Sinotubular Diameter 2.7 cm IVC Diameter 1.8 cm M-MODE Aortic Annulus Diameter 2.7 cm LA Ao Ratio MM 1.4 MV E Point Septal Separation 0.0 cm DOPPLER AV Peak Velocity 229.0 cm/s LVOT Peak Velocity 106.0 cm/s AV Area Cont Eq vti 1.4 cm squared AV Area Cont Eq pk 1.3 cm squared MV Peak Velocity 170.0 cm/s MV Area PHT 5.0 cm squared MV E' Velocity 168.0 cm/s TR Peak Velocity 294.8 cm/s TR Peak Gradient 34.8 mmHg TV Peak E Velocity 79.0 cm/s Right Atrial Pressure 5.0 mmHg Pulmonary Artery Systolic Pressu 39.8 mmHg PV Peak Velocity 114.0 cm/s RV Acceleration Time 0.1 s RV Ejection Time 0.3 s RV AcT/ET 0.2 FINDINGS Left Ventricle Left ventricle is normal in size. LV systolic function is normal with EF of 60-65%. No regional wall motion abnormalities are seen. Right Ventricle Normal in size and fine Right Atrium Normal in size Left Atrium Normal in size Mitral Valve Moderate to severe mitral annular calcification is seen. Trace mitral regurgitation. Aortic Valve Aortic valve is thickened. Moderate aortic regurgitation. Mild aortic stenosis with aortic valve area 1.36 cm2 and mean gradient of 10 mmHg. Tricuspid Valve Mild tricuspid regurgitation. RVSP is 35 to 40 mmHg. This is consistent with mild pulmonary hypertension Pulmonic Valve Not well visualized Pericardium Normal Aorta Normal in size IVC Appears to be normal CONCLUSIONS LV systolic function is normal with EF of 60 to 65%. Trace mitral regurgitation. Moderate aortic regurgitation. Mild aortic stenosis. Mild tricuspid regurgitation. Mild pulmonary hypertension No comparison studies are available. Jacinto Hobbs MD (Electronically Signed) Final Date: 31 December 2023 09:11 S
--- NOTE | 2023-12-30 11:17 | CTR_ITS ---
PROCEDURE INFORMATION: Exam: CT Head Without Contrast Exam date and time: 12/30/2023 11:39 AM Age: 88 years old Clinical indication: Altered mental status/memory loss; Additional info: Hyponatremia, confusion TECHNIQUE: Imaging protocol: Computed tomography of the head without contrast. Radiation optimization: All CT scans at this facility use at least one of these dose optimization techniques: automated exposure control; mA and/or kV adjustment per patient size (includes targeted exams where dose is matched to clinical indication); or iterative reconstruction. COMPARISON: No relevant prior studies available. RADIATION DOSE METRICS: Total DLP (mGy-cm): 1158.48 FINDINGS: Brain: No intracranial hemorrhage. No acute infarct. No extra-axial fluid collection. Moderate periventricular and subcortical white matter hypodensities compatible with chronic small vessel ischemic disease. Diffuse cerebral atrophy, consistent with patient's age. Cerebral ventricles: Ventricles are in proportion to the degree of atrophy. Paranasal sinuses: Complete opacification of the left maxillary, frontal, and ethmoid sinuses. Mastoid air cells: Visualized mastoid air cells are well aerated. Bones/joints: Unremarkable. No acute fracture. Soft tissues: Unremarkable. CT/CT head wo con* [id number] IMPRESSION: 1. No acute intracranial abnormality. 2. Left frontal, maxillary, and ethmoid sinusitis.
[2023-12-30] MEDS: pantoprazole DR 40 mg Tablet PO (11:53)
[2023-12-30] MEDS: levothyroxine 100 mcg Tablet PO (11:53)
[2023-12-30] MEDS: valACYclovir 1,000 mg Tablet 1000 MG PO ×2 (11:53→19:31)
[2023-12-30] MEDS: sennosides-docusate Tablet 2 TAB PO ×2 (11:53→18:30)
[2023-12-30] MEDS: enoxaparin 40 mg/0.4 mL Syringe SUBCUT (11:56)
[2023-12-30] MEDS: bisacodyl 10 mg Supp PR (11:57)
[2023-12-30] MEDS: capsaicin 0.025% cream 60 gm 1 APPLIC TOPICAL (11:57)
[2023-12-30] MEDS: sodium chloride 0.9% 1,000 ML 75 ML IV (12:00)
[2023-12-30] MEDS: oxyCODONE 5 mg IR Tab/Cap PO ×2 (12:31→18:30)
[2023-12-30 13:44] LABS: Glucose Point of Care 251 mg/dL (70-110)
[2023-12-30] MEDS: insulin lispro 100 unit/1 mL SUBCUT ×3 (13:44→21:49)
[2023-12-30] MEDS: HYDROmorphone 1 mg/mL INJ 1 mL 0.5 MG IVP (14:09)
[2023-12-30 17:09] LABS: Glucose Point of Care 145 mg/dL (70-110)
[2023-12-30 17:43] LABS: Anion Gap 13.6 (5-19); Blood Urea Nitrogen 5 mg/dL (8-23); Calcium 9.1 mg/dL (8.5-10.5); Carbon Dioxide 30 mmol/L (22-29); Chloride 87 mmol/L (98-107); Glucose 133 mg/dL (65-115); Osmolality Calculated 263 mOsm/kg (285-295); Potassium 3.6 mmol/L (3.5-5.1); Sodium 127 mmol/L (136-145)
[2023-12-30] MEDS: lactulose oral liq 20 gm/30 mL UDC 10 GM PO (18:29)
[2023-12-30 20:52] LABS: Glucose Point of Care 199 mg/dL (70-110)
[2023-12-31] VITALS (10 sets, daily range): BP systolic 121–193; BP diastolic 60–92; PULSE 80–111; RESP 15–18; TEMP 36.7–37.1; O2SAT 91–95
[2023-12-31] MEDS: sodium chloride 0.9% 1,000 ML 75 ML IV ×2 (00:26→16:53)
[2023-12-31] MEDS: oxyCODONE 5 mg IR Tab/Cap PO (03:10)
[2023-12-31] MEDS: valACYclovir 1,000 mg Tablet 1000 MG PO ×3 (03:10→18:12)
[2023-12-31 05:14] LABS: Basophils % 0.3 %; Eosinophils # 0.1 10^3/uL (0.0-0.8); Eosinophils % 0.5 %; Hematocrit 36.2 % (36-47); Lymphocytes # 1.7 10^3/uL (0.8-4.8); Mean Corpuscular HGB Conc 33.7 g/dL (30-55); Mean Corpuscular Hemoglobin 30.4 pg (27-33); Mean Corpuscular Volume 90.3 fl (85-98); Mean Platelet Volume 8.7 fL (7.4-10.4); Monocytes # 1.3 10^3/uL (0.2-0.9); Monocytes % 9.8 %; Neutrophils # 10.19 10^3/uL (1.8-7.7); Nucleated Red Blood Cells % 0 %; Platelet Count 391 10^3/cmm (157-399); Red Blood Count 4.01 10^6/uL (3.85-5.65); Red Cell Distribution Width 13.1 % (12.1-15.1)
[2023-12-31 05:31] LABS: Alanine Aminotransferase 32 U/L (0-33); Albumin Level 3.4 g/dL (3.5-5.2); Alkaline Phosphatase 110 U/L (35-105); Anion Gap 15.4 (5-19); Aspartate Amino Transferase 35 U/L (0-32); Blood Urea Nitrogen 5 mg/dL (8-23); Calcium 9.2 mg/dL (8.5-10.5); Carbon Dioxide 28 mmol/L (22-29); Chloride 91 mmol/L (98-107); Globulin 3.1 g/dL (1.3-4.6); Glucose 114 mg/dL (65-115); Magnesium 2.2 mg/dL (1.7-2.3); Osmolality Calculated 270 mOsm/kg (285-295); Potassium 3.4 mmol/L (3.5-5.1); Sodium 131 mmol/L (136-145); Total Bilirubin 0.4 mg/dL (0.15-1.2); Total Protein 6.5 g/dL (6.6-8.7)
[2023-12-31 06:43] LABS: Glucose Point of Care 121 mg/dL (70-110)
[2023-12-31] MEDS: pantoprazole DR 40 mg Tablet PO (08:14)
[2023-12-31] MEDS: potassium chloride ER 20 mEq Tablet 40 MEQ PO (08:14)
[2023-12-31] MEDS: sennosides-docusate Tablet 2 TAB PO ×2 (08:15→18:12)
[2023-12-31] MEDS: levothyroxine 100 mcg Tablet PO (08:15)
[2023-12-31] MEDS: lactulose oral liq 20 gm/30 mL UDC 10 GM PO (08:15)
--- NOTE | 2023-12-31 10:02 | PC.CHAP ---
Pastoral Care Encounter/Spiritual Assessment Type of Contact [] Declined guest relations officer visit [] Patient/Family/Request visit [] Outpatient visit [] Follow-up visit [] Physician referral [] Code/Alert [x] Routine visit [] Staff referral [] Actively dying [] Patient sleeping [x] Family support [] [] Out of room [] Palliative care [] [] Receiving care in room [] Pre-surgical visit [] Trauma [] Long length of stay [] ICU visit [] Other: Relational/Emotional Strength [x] Patient feels connected with others/family/visitors/staff [] Distress [] Loneliness/isolation [] Abandonment Spirituality of Patient [x Person of Betty [] Attends Moravian of their Betty [x] Believes in Prayer [] Reads Bible or Anabaptism materials [] There are Spiritual issues to be addressed Exchange Operator Interventions [x] Prayer [x] Active listening [x] Non-anxious presence [x] Spiritual/emotional support [] Crisis/trauma care [] Spiritual counseling [] Bereavement support [] Provided bereavement packet [] Provided Bible/devotional materials [] Provided toy/stuffed animal, coloring book to patient or family member [] Provided Communion [] Anointing/[place] [] Salvation [] Completed spiritual assessment [] Other: Impact on Illness or Injury [] Angry [] Fearful [] Anxious [] Often cries [] Exhaustion [] Unable to work [] Unable to attend alevism [] Unable to walk/stand [] Unable to read [] Unable to drive [] Unable to eat/drink [] Unable to sleep [] Unable to be with family [] Patient intubated [] Other: Summary Time spent with patient 5 min
--- NOTE | 2023-12-31 10:53 | P.PN_ITS ---
Documented by User: APRIL Davenport STDTORI 12/31/23 11:19 Subjective 2 Subjective: Kassy Baldwin is an 88-year-old female who presents to the ED 12/30/2023 with altered mental status, likely secondary to hyponatremia, significant pain from shingles, and constipation of 8 days. Patient has a past medical history of diabetes mellitus type 2, cardiovascular disease, chronic pain, chronic urinary retention and compression fracture level T9. Today patient reports her pain is significantly reduced from yesterday, she is alert and oriented to person place time and situation is conversational. She reports that she has not had a bowel movement. She reports history at home taking 5 oxycodone before noon, reports significant back pain in bed with twisting movement, and does not want to get up and walk or perform physical therapy, due to pain. Vitals/I&O/Wt Last Vital Signs Temp 98.0 F 12/31/23 07:30 Pulse 98 12/31/23 08:23 Resp 16 12/31/23 07:30 BP 193/92 12/31/23 07:30 Pulse Ox 94 12/31/23 08:23 O2 Del Method Room Air 12/31/23 08:23 12/30/23 12/31/23 12/31/23 22:59 06:59 14:59 Intake Total 740 / 740 932.5 / 1672.5 240 / 240 Output Total 650 / 2450 1000 / 3450 Balance 90 / -1710 -67.5 / -1777.5 240 / 240 Weight last 48 hrs Weight 120 lb 3 oz Weight 130 lb Physical Exam 2 Narrative: General alert and oriented to person place time and situation pleasant HEENT normocephalic atraumatic EOMI PERRL neck supple no lymphadenopathy, no JVD Cardio regular rhythm and rate, 3/6 systolic ejection murmur, no edema, radial pulses 2+, left dorsal pedal pulse 2+, right dorsal pedal pulse 1+, capillary refill less than 2 seconds Pulmonary breath sounds normal no wheezes rubs or rhonchi Abdomen supple no organomegaly no pain bowel sounds normal deferred Stephenson noted Extremities, normal strength and movement sensation intact Neuro no focal deficit Psych normal mood and affect Urinary Catheter Management: Stephenson Latex: Cath Placed During This Visit: yes Reason for Continuing Indwelling Catheter: Acute Urinary Retention or Obstruction Urinary Catheter Date of Insertion: 12/30/23 Urinary Catheter Time of Insertion: 04:45 Data 12/31/23 04:19 12/31/23 04:19 Other Labs: White blood cells elevated 13.4 thousand differential increased neutrophils 10.9 thousandand increased monocytes 1.3 thousand Sodium improved from yesterday at 131 when corrected for glucose A&P Assessment and plan (1) Hyponatremia: Sodium is significantly improved at 131 when corrected for serum glucose, and will continue to be treated. Patient has significant diuresis with Stephenson relieving her urinary retention Continue maintenance fluids at 75 cc an hour of normal saline. With the Lasix that should make her serum sodium increased. Will prove this by checking her lab is 1pm. (2) Constipation: Patient likely has constipation secondary to opioid use, has tried multiple laxatives Bisacodyl suppository had little effect Continue senna docusate 2 tablets twice daily along with lactulose 10 mL twice daily. Monitor for bowel movements This could be contributing to her urinary retention (3) Acute encephalopathy: Resolved (4) Shingles: Continue Valtrex Start topical capsaicin cream Decrease dose of oxycodone 5 mg p.o. Q 8 to 2.5 mg p.o. every 3 hour as needed as this is effectively a lower dose and help the patient was taking her oxycodone at home Qualifiers: Herpes zoster complications: unspecified herpes zoster complication Qualified Code(s): B02.8 - Zoster with other complications (5) Transaminitis: CBC CMP continue to monitor for change May be secondary to acute illness. This could also be related to the Valtrex she recently received is mild ALT and AST elevations can occur with this. (6) Peripheral edema: Patient was given 1 dose of furosemide 20 mg IV push continue to monitor (7) Heart murmur: EKG, echocardiogram Chest x-ray does not show cardiac enlargement (8) Type 2 diabetes mellitus: Sliding scale insulin Carbohydrate controlled diet Hemoglobin A1c is elevated. Qualifiers: Diabetes mellitus complication status: without complication Diabetes mellitus exterminator helper insulin use: without jail use Qualified Code(s): E11.9 - Type 2 diabetes mellitus without complications Plan Urinary retention. Stephenson placed. After treatment of constipation consider removal and close monitoring CBC CMP tomorrow morning to monitor for changes in liver enzymes and sodium Allow natural . Discussed with patient and daughters Lovenox will suffice for DVT prophylaxis Attestations 2 Medical Necessity Statement*: Patient needs continued hospital stay until she has a bowel movement, patient can be discharged to rehab facility if she is amenable to this. Coding Level of Care Code 23234 Diagnoses Hyponatremia E87.1 Constipation K59.00 Acute encephalopathy G93.40 Shingles B02.8 Herpes zoster complications: unspecified herpes zoster complication Transaminitis R74.01 Peripheral edema R60.0 Heart murmur R01.1 Type 2 diabetes mellitus without complication, without long-term current use of insulin E11.9 Diabetes mellitus complication status: without complication Diabetes mellitus exterminator helper insulin use: without jail use Time Spent (min) 26 Documented by User: Subhash Zendejas MD 12/31/23 11:27 Subjective 2 Subjective: Kassy Baldwin is an 88-year-old female who presents to the ED 12/30/2023 with altered mental status, likely secondary to hyponatremia, significant pain from shingles, and constipation of 8 days. . Today patient reports her pain is significantly reduced from yesterday, she is alert and oriented to person place time and situation is conversational. She reports that she has not had a bowel movement. She reports history at home taking 2.5 mg Oxy every 3 hours, reports significant back pain in bed with twisting movement, and does not want to get up and walk or perform physical therapy, due to pain. Reports she is passing flatus, and is hungry this morning. Medications: Reviewed: Yes Physical Exam 2 Urinary Catheter Management: Stephenson Latex: Cath Placed During This Visit: yes Data 12/31/23 04:19 12/31/23 04:19 A&P Assessment and plan (1) Hyponatremia: Sodium is significantly improved at 131 when corrected for serum glucose, and will continue to be treated. Patient has significant diuresis with Stephenson relieving her urinary retention Secondary to improved oral intake, reduce normal saline to 50 cc an hour. Will not give any more Lasix today. Her peripheral edema is significantly improved. (2) Constipation: Patient likely has constipation secondary to opioid use, has tried multiple laxatives Bisacodyl suppository had little effect Continue senna docusate 2 tablets twice daily along with lactulose 10 mL twice daily. Monitor for bowel movements If does not improve, consider increasing lactulose This could be contributing to her urinary retention (3) Acute encephalopathy: (4) Shingles: Continue Valtrex Start topical capsaicin cream Decrease dose of oxycodone 5 mg p.o. Q 8 to 2.5 mg p.o. every 3 hour as needed as this is effectively a lower dose and then the patient was taking at home Qualifiers: Herpes zoster complications: unspecified herpes zoster complication Qualified Code(s): B02.8 - Zoster with other complications (5) Transaminitis: CBC CMP continue to monitor for change May be secondary to acute illness. This could also be related to the Valtrex she recently received is mild ALT and AST elevations can occur with this. Overall this is improved (6) Peripheral edema: Patient was given 1 dose of furosemide 20 mg IV push continue to monitor Edema appears significantly improved/resolved (7) Heart murmur: EKG, echocardiogram Chest x-ray does not show cardiac enlargement Echo demonstrates preserved EF, trace MR, moderate AR, mild (8) Type 2 diabetes mellitus: Qualifiers: Diabetes mellitus complication status: without complication Diabetes mellitus exterminator helper insulin use: without jail use Qualified Code(s): E11.9 - Type 2 diabetes mellitus without complications Attestations 2 Medical Necessity Statement*: Needs continued hospitalization to facilitate resolution of her constipation, and close monitoring of her sodium. Diagnoses Hyponatremia E87.1 Constipation K59.00 Acute encephalopathy G93.40 Shingles B02.8 Herpes zoster complications: unspecified herpes zoster complication Transaminitis R74.01 Peripheral edema R60.0 Heart murmur R01.1 Type 2 diabetes mellitus without complication, without long-term current use of insulin E11.9 Diabetes mellitus complication status: without complication Diabetes mellitus jail insulin use: without exterminator helper use Time Spent (min) 26
[2023-12-31 11:53] LABS: Glucose Point of Care 222 mg/dL (70-110)
[2023-12-31] MEDS: enoxaparin 40 mg/0.4 mL Syringe SUBCUT (12:18)
[2023-12-31] MEDS: insulin lispro 100 unit/1 mL SUBCUT ×3 (12:18→21:31)
[2023-12-31] MEDS: oxyCODONE 5 mg IR Tab/Cap 2.5 MG PO ×3 (12:19→22:21)
[2023-12-31 16:42] LABS: Glucose Point of Care 153 mg/dL (70-110)
[2023-12-31] MEDS: lactulose oral liq 20 gm/30 mL UDC PO ×2 (16:52→21:30)
[2023-12-31] MEDS: bisacodyl 10 mg Supp PR (16:53)
[2023-12-31 21:07] LABS: Glucose Point of Care 157 mg/dL (70-110)
[2024-01-01] VITALS (9 sets, daily range): BP systolic 127–164; BP diastolic 68–76; PULSE 89–112; RESP 15–18; TEMP 36.6–37; O2SAT 92–96
[2024-01-01] MEDS: oxyCODONE 5 mg IR Tab/Cap 2.5 MG PO ×5 (03:06→20:36)
[2024-01-01] MEDS: valACYclovir 1,000 mg Tablet 1000 MG PO ×2 (03:06→10:49)
[2024-01-01 05:18] LABS: Basophils # 0.1 10^3/uL (0.0-0.1); Basophils % 0.2 %; Eosinophils % 0.1 %; Hematocrit 33.8 % (36-47); Lymphocytes # 2.2 10^3/uL (0.8-4.8); Lymphocytes % 10.7 %; Mean Corpuscular HGB Conc 33.7 g/dL (30-55); Mean Corpuscular Hemoglobin 30.4 pg (27-33); Mean Corpuscular Volume 90.1 fl (85-98); Mean Platelet Volume 9.2 fL (7.4-10.4); Monocytes % 9.8 %; Neutrophils # 15.94 10^3/uL (1.8-7.7); Neutrophils % 78.6 %; Nucleated Red Blood Cells % 0 %; Platelet Count 332 10^3/cmm (157-399); Red Blood Count 3.75 10^6/uL (3.85-5.65); Red Cell Distribution Width 13.4 % (12.1-15.1); White Blood Count 20.28 10^3/uL (3.29-11.43)
[2024-01-01 05:53] LABS: Alanine Aminotransferase 26 U/L (0-33); Albumin Level 3.2 g/dL (3.5-5.2); Alkaline Phosphatase 111 U/L (35-105); Anion Gap 15.4 (5-19); Aspartate Amino Transferase 29 U/L (0-32); Blood Urea Nitrogen 3 mg/dL (8-23); Calcium 8.3 mg/dL (8.5-10.5); Carbon Dioxide 25 mmol/L (22-29); Chloride 93 mmol/L (98-107); Globulin 2.9 g/dL (1.3-4.6); Glucose 121 mg/dL (65-115); Osmolality Calculated 268 mOsm/kg (285-295); Potassium 3.4 mmol/L (3.5-5.1); Sodium 130 mmol/L (136-145); Total Bilirubin 0.6 mg/dL (0.15-1.2); Total Protein 6.1 g/dL (6.6-8.7)
--- NOTE | 2024-01-01 06:30 | XR_ITS ---
WS: [id number] XR chest 1V portable [id number] REASON FOR EXAM: leukocytosis FINDINGS: Compared to the examination of 12/30/2023 the interstitium appears more prominent however this is likel y due to difference in imaging technique and decreased expansion of the left lung. Interstitial edema would be a consideration if the patient is short of breath. No other interval change or new finding is identified. IMPRESSION: Probably stable chest compared to 04/13/2024.
[2024-01-01 06:38] LABS: Glucose Point of Care 123 mg/dL (70-110)
[2024-01-01] MEDS: potassium chloride ER 20 mEq Tablet 40 MEQ PO (07:34)
[2024-01-01] MEDS: cefTRIAXone 1,000 MG in sodium chloride 0.9% (plus) 50 ML 100 MG IV (07:35)
[2024-01-01] MEDS: sennosides-docusate Tablet 2 TAB PO ×2 (08:40→17:17)
[2024-01-01] MEDS: levothyroxine 100 mcg Tablet PO (08:40)
[2024-01-01] MEDS: pantoprazole DR 40 mg Tablet PO (08:41)
[2024-01-01] MEDS: lactulose oral liq 20 gm/30 mL UDC 10 GM PO ×2 (08:41→17:17)
[2024-01-01 09:53] LABS: Bilirubin Urine Neg (Negative); Blood Urine Neg (Negative); Glucose Urine UA Norm (Normal); Ketones Urine 1+ (Negative); Leukocyte Esterase Urine Negative (Negative); Nitrate Urine Negative (Negative); Protein Urine Neg (Negative); Specific Gravity, Urine 1.015 (1.005-1.030); Urine Appearance Clear (CLEAR); Urine Color Yellow (Yellow); Urobilinogen Urine Norm (Negative); pH Urine 7 (5-7)
[2024-01-01 09:56] LABS: Squamous Epithelial Cell Urine 0-4 /hpf (0-5); WBC Urine 0-4 /hpf (0-5)
[2024-01-01 09:57] LABS: Add Urine Culture? No; Amorphous Sediment Urine TRACE /hpf; Fine Granular Casts Urine RARE /lpf; Mucus Urine TRACE /hpf
[2024-01-01] MEDS: enoxaparin 40 mg/0.4 mL Syringe SUBCUT (10:49)
--- NOTE | 2024-01-01 11:16 | PM.PN ---
Subjective Subjective: Kassy reports she has had some bowel movements. She still has pain. So far it has been better controlled with oral medication. She denies any shortness of breath or cough. Medications: Reviewed: Yes Vitals/I&O/Wt Last Vital Signs Temp 98.0 F 01/01/24 08:00 Pulse 98 01/01/24 08:00 Resp 15 01/01/24 10:19 BP 164/68 01/01/24 08:00 Pulse Ox 95 01/01/24 10:19 O2 Del Method Room Air 01/01/24 08:00 12/31/23 01/01/24 01/01/24 22:59 06:59 14:59 Intake Total 720 / 2200 480 / 2680 290 / 290 Output Total 1400 / 1400 1200 / 2600 Balance -680 / 800 -720 / 80 290 / 290 Weight last 48 hrs Weight 57.294 kg Weight 54.516 kg Physical Exam Narrative: General exam no distress Neck is supple Cardiovascular regular October 20 systolic murmur Lungs clear Abdomen soft Back demonstrates healed zoster Extremities no cyanosis clubbing or edema Urinary Catheter Management: Stephenson Latex: Cath Placed During This Visit: yes Reason for Continuing Indwelling Catheter: Acute Urinary Retention or Obstruction Urinary Catheter Date of Insertion: 12/30/23 Urinary Catheter Time of Insertion: 04:45 Data 01/01/24 04:23 01/01/24 04:23 Micro: Microbiology 01/01/24 08:09 Blood Culture - Preliminary Blood SPECIMEN COLLECTED 01/01/24 08:06 Blood Culture - Preliminary Blood SPECIMEN COLLECTED A&P Assessment and plan (1) Hyponatremia: Sodium improved. 130 today. Can discontinue normal saline Repeat sodium tomorrow (2) Constipation: Patient likely has constipation secondary to opioid use, has tried multiple laxatives Bisacodyl suppository had little effect Continue senna docusate 2 tablets twice daily along with lactulose 10 mL twice daily. Monitor for bowel movements This is improved on her current regimen. This could have contributed to her urinary retention. (3) Acute encephalopathy: Resolved (4) Shingles: May discontinue Valtrex. She has had an adequate course and no new lesions Start topical capsaicin cream Oxycodone 5 mg p.o. Q 8 to 2.5 mg p.o. every 3 hour as needed as this is effectively a lower dose and then the patient was taking at home Qualifiers: Herpes zoster complications: unspecified herpes zoster complication Qualified Code(s): B02.8 - Zoster with other complications (5) Transaminitis: CBC CMP daily May be secondary to acute illness. This could also be related to the Valtrex she recently received is mild ALT and AST elevations can occur with this. Overall this is improved (6) Peripheral edema: Patient was given 1 dose of furosemide 20 mg IV push on admission continue to monitor Edema appears significantly improved/resolved (7) Heart murmur: EKG, echocardiogram Chest x-ray does not show cardiac enlargement Echo demonstrates preserved EF, trace MR, moderate AR, mild (8) Type 2 diabetes mellitus: Sliding scale insulin Carbohydrate controlled diet Hemoglobin A1c is elevated. Qualifiers: Diabetes mellitus equipment operator intermodal yard insulin use: without penitentiary use Diabetes mellitus complication status: without complication Qualified Code(s): E11.9 - Type 2 diabetes mellitus without complications Plan Urinary retention. Stephenson placed. Constipation has been treated. Will try to remove Stephenson. Add Flomax CBC CMP tomorrow morning to monitor for changes in liver enzymes and sodium Significant leukocytosis. Repeat urinalysis, chest x-ray. Blood cultures obtained. Rocephin started empirically. Mild hypokalemia, supplement Allow natural . Discussed with patient and daughters Lovenox will suffice for DVT prophylaxis Attestations Medical Necessity Statement*: Needs continued hospitalization for exploration of significant elevation in white blood cell count, removal of Stephenson catheter to see if urinary retention is less Diagnoses Hyponatremia E87.1 Constipation K59.00 Acute encephalopathy G93.40 Shingles B02.8 Herpes zoster complications: unspecified herpes zoster complication Transaminitis R74.01 Peripheral edema R60.0 Heart murmur R01.1 Type 2 diabetes mellitus without complication, without long-term current use of insulin E11.9 Diabetes mellitus equipment operator intermodal yard insulin use: without penitentiary use Diabetes mellitus complication status: without complication Time Spent (min) 22
[2024-01-01 11:31] LABS: Glucose Point of Care 231 mg/dL (70-110)
[2024-01-01] MEDS: FUROsemide 20 mg Tablet PO (12:21)
[2024-01-01] MEDS: tamsulosin 0.4 mg Capsule PO (12:21)
[2024-01-01] MEDS: insulin lispro 100 unit/1 mL SUBCUT ×3 (12:21→20:37)
--- NOTE | 2024-01-01 14:13 | PC.SOCIAL ---
IMM Update pg 2 of IMM updated and reviewed w/ patient. Copy provided and copy dated, initialed and placed in chart.
[2024-01-01 16:46] LABS: Glucose Point of Care 145 mg/dL (70-110)
[2024-01-01 20:21] LABS: Glucose Point of Care 188 mg/dL (70-110)
[2024-01-02] VITALS (11 sets, daily range): BP systolic 123–147; BP diastolic 58–80; PULSE 84–109; RESP 15–18; TEMP 36.4–37; O2SAT 93–96
[2024-01-02] MEDS: oxyCODONE 5 mg IR Tab/Cap 2.5 MG PO ×8 (01:26→23:28)
[2024-01-02 05:06] LABS: Basophils # 0.1 10^3/uL (0.0-0.1); Basophils % 0.2 %; Eosinophils # 0.1 10^3/uL (0.0-0.8); Eosinophils % 0.2 %; Hematocrit 33.1 % (36-47); Lymphocytes # 3.2 10^3/uL (0.8-4.8); Lymphocytes % 13.3 %; Mean Corpuscular HGB Conc 33.5 g/dL (30-55); Mean Corpuscular Hemoglobin 30.2 pg (27-33); Mean Corpuscular Volume 90.2 fl (85-98); Mean Platelet Volume 9.1 fL (7.4-10.4); Monocytes # 1.9 10^3/uL (0.2-0.9); Monocytes % 7.9 %; Neutrophils # 18.88 10^3/uL (1.8-7.7); Neutrophils % 77.8 %; Nucleated Red Blood Cells % 0 %; Platelet Count 310 10^3/cmm (157-399); Red Blood Count 3.67 10^6/uL (3.85-5.65); Red Cell Distribution Width 13.7 % (12.1-15.1); White Blood Count 24.25 10^3/uL (3.29-11.43)
[2024-01-02 05:32] LABS: Alanine Aminotransferase 21 U/L (0-33); Albumin Level 3.2 g/dL (3.5-5.2); Alkaline Phosphatase 105 U/L (35-105); Anion Gap 17.4 (5-19); Aspartate Amino Transferase 22 U/L (0-32); Blood Urea Nitrogen 6 mg/dL (8-23); Calcium 8.6 mg/dL (8.5-10.5); Carbon Dioxide 25 mmol/L (22-29); Chloride 93 mmol/L (98-107); Globulin 2.5 g/dL (1.3-4.6); Glucose 117 mg/dL (65-115); Osmolality Calculated 273 mOsm/kg (285-295); Potassium 3.4 mmol/L (3.5-5.1); Sodium 132 mmol/L (136-145); Total Bilirubin 0.5 mg/dL (0.15-1.2); Total Protein 5.7 g/dL (6.6-8.7)
[2024-01-02] MEDS: cefTRIAXone 1,000 MG in sodium chloride 0.9% (plus) 50 ML 100 MG IV (05:52)
[2024-01-02 06:53] LABS: Glucose Point of Care 124 mg/dL (70-110)
[2024-01-02] MEDS: pantoprazole DR 40 mg Tablet PO (08:41)
[2024-01-02] MEDS: tamsulosin 0.4 mg Capsule PO (08:41)
[2024-01-02] MEDS: lactulose oral liq 20 gm/30 mL UDC 10 GM PO ×2 (08:41→17:51)
[2024-01-02] MEDS: sennosides-docusate Tablet 2 TAB PO ×2 (08:41→17:54)
[2024-01-02] MEDS: levothyroxine 100 mcg Tablet PO (08:41)
--- NOTE | 2024-01-02 08:45 | CTR_ITS ---
PROCEDURE INFORMATION: Exam: CT Chest With Contrast; Diagnostic Exam date and time: 01/02/2024 2:17 PM Age: 88 years old Clinical indication: Abdominal pain; Generalized; Additional info: Increasing lekocytosis, abdominal pain, shortness of breath TECHNIQUE: Imaging protocol: Diagnostic computed tomography of the chest with contrast. Radiation optimization: All CT scans at this facility use at least one of these dose optimization techniques: automated exposure control; mA and/or kV adjustment per patient size (includes targeted exams where dose is matched to clinical indication); or iterative reconstruction. Contrast material: OMNI 350; Contrast volume: 100 ml; Contrast route: INTRAVENOUS (IV); COMPARISON: CR XR chest 1V portable [id number] 01/01/2024 7:04 AM RADIATION DOSE METRICS: Total DLP (mGy-cm): 586.88 FINDINGS: Thyroid: Grossly unremarkable. Lungs: No focal consolidation. Pleural spaces: No pleural effusion. No pneumothorax. There are small subpleural blebs in the right costophrenic sulcus measuring up to 2 cm. Heart: No cardiomegaly. No pericardial effusion. There are incidental coronary artery calcifications. Mediastinal space: Trachea and central airways are grossly patent. No evidence of mediastinal mass or hematoma. Lymph nodes: No evidence of mediastinal or hilar adenopathy. Vasculature: Moderate atherosclerosis without aneurysmal dilatation of the thoracic aorta. No evidence of dissection. Though this study is not tailored to evaluate for pulmonary thromboembolism, there is no evidence of PE within limitations of respiratory motion. Bones/joints: No evidence of acute fracture or aggressive osseous lesion. Chronic T6 vertebral plana. Soft tissues: No fluid collection or hematoma in the superficial soft tissues. PROCEDURE INFORMATION: Exam: CT Abdomen And Pelvis With Contrast Exam date and time: 01/02/2024 2:17 PM Age: 88 years old Clinical indication: Abdominal pain; Generalized; Additional info: Increasing lekocytosis, abdominal pain, shortness of breath TECHNIQUE: Imaging protocol: Computed tomography of the abdomen and pelvis with contrast. Radiation optimization: All CT scans at this facility use at least one of these dose optimization techniques: automated exposure control; mA and/or kV adjustment per patient size (includes targeted exams where dose is matched to clinical indication); or iterative reconstruction. Contrast material: OMNI 350; Contrast volume: 100 ml; Contrast route: INTRAVENOUS (IV); COMPARISON: CT kidney stone [id number] 12/30/2023 6:42 AM RADIATION DOSE METRICS: Total DLP (mGy-cm): 586.88 FINDINGS: Liver: Hepatic steatosis. No evidence of focal hepatic lesion. Gallbladder and bile ducts: Status post cholecystectomy. Mild central intrahepatic biliary dilatation. There is mild extrahepatic biliary dilatation, frequently seen post cholecystectomy. CBD measures up to 9 mm. No evidence of intraductal stone. Pancreas: Atrophic. Spleen: Multiple splenic calcifications compatible with sequela of a remote granulomatous process. Otherwise grossly unremarkable. Adrenal glands: Unremarkable. Kidneys and ureters: No renal parenchymal abnormality. No hydronephrosis or ureteral stone. There is bilateral pelviectasis, favored to be secondary to bladder distension. Stomach and bowel: There are few loops of mildly prominent and thickened small bowel with perienteric haziness compatible with an infectious or inflammatory enteritis. No evidence of bowel obstruction. Moderate stool burden. Appendix: The appendix is not visualized, however there are no findings to suggest appendicitis. Intraperitoneal space: No evidence of free air or fluid collection. Vasculature: Extensive aortobiiliac atherosclerosis without aneurysmal dilatation or dissection. The celiac trunk, SMA and VIDAL are grossly patent. Moderate narrowing of the origin of the celiac trunk. No evidence of IVC thrombus. The portal vein, SMV and splenic veins are grossly patent. Lymph nodes: No adenopathy. Urinary bladder: Small amount of air noted within the bladder raising the question of gas-forming infection versus recent catheterization. There is mild bladder wall haziness. Otherwise grossly unremarkable. Reproductive: Status post hysterectomy. There is mild laxity of the pelvic floor. Bones/joints: No evidence of acute fracture or aggressive osseous lesion. 6 mm grade 1/2 anterolisthesis of L4 on L5 secondary to severe facet arthrosis, which along with disc bulge results in severe right-sided foraminal stenosis and likely contacting/impingement of the exiting right L4 nerve root. There is moderate-severe central stenosis at this level as well. Consider correlation with follow-up nonemergent MRI if there is clinical concern for neural impingement. Soft tissues: No evidence of fluid collection or hematoma in the superficial soft tissues. CT/CT chest abdpel w/*[id number] IMPRESSION: 1. No evidence of acute abnormality in the chest. IMPRESSION: 1. Findings compatible with an infectious or inflammatory enteritis. 2. Possible cystitis. Correlation with urinalysis is recommended. 3. Extensive aorto bi-iliac atherosclerosis.
--- NOTE | 2024-01-02 09:38 | P.PN_ITS ---
Documented by User: APRIL Davenport STDTORI 01/02/24 10:22 Subjective 2 Subjective: Kassy Baldwin is an 88-year-old female who presents to the ED 12/30/2023 with altered mental status, significant pain from shingles, and constipation of 8 days, Her AMS and constipation have been resolved in the hospital, and she has no active shingles lesions but has continued pain. Today patient is alert and oriented, and has gotten up to brush her teeth. Her pain is significantly better but had a flare last night after she was given her opioid medication over an hour and a half late. She reports mild abdominal cramping. No nausea or vomiting has eaten breakfast well. Patient has had several small bowel movement and is urinating normally. Patient reports no fever or chills, lightheadedness or chest pain or other symptoms. She does not want to go to a nursing facility for rehab, though her family desires this. Medications: Reviewed: Yes Vitals/I&O/Wt Last Vital Signs Temp 98.6 F 01/02/24 04:37 Pulse 108 H 01/02/24 08:00 Resp 16 01/02/24 08:44 BP 123/58 01/02/24 08:00 Pulse Ox 95 01/02/24 08:00 O2 Del Method Room Air 01/02/24 08:00 01/01/24 01/02/24 01/02/24 22:59 06:59 14:59 Intake Total 480 / 2010 150 / 2160 240 / 240 Output Total 800 / 1900 300 / 2200 Balance -320 / 110 -150 / -40 240 / 240 Weight last 48 hrs Weight 126 lb Weight 126 lb 5 oz Physical Exam 2 Narrative: General alert and oriented to person place time and situation pleasant HEENT normocephalic atraumatic EOMI PERRL neck supple no lymphadenopathy, no JVD Cardio regular rhythm and rate, 3/6 systolic ejection murmur, no edema, radial pulses 2+, left dorsal pedal pulse 2+, right dorsal pedal pulse 1+, capillary refill less than 2 seconds Pulmonary breath sounds normal no wheezes rubs or rhonchi Abdomen supple no organomegaly, active bowel sounds deferred Stephenson noted Extremities, normal strength and movement sensation intact Neuro no focal deficit Psych normal mood and affect Urinary Catheter Management: Stephenson Latex: Cath Placed During This Visit: yes Reason for Continuing Indwelling Catheter: Acute Urinary Retention or Obstruction Urinary Catheter Date of Insertion: 12/30/23 Urinary Catheter Time of Insertion: 04:45 Data 01/02/24 04:19 01/02/24 04:19 Micro: Microbiology 01/01/24 08:06 Blood Culture - Preliminary Blood NEGATIVE TO DATE 01/01/24 08:09 Blood Culture - Preliminary Blood NEGATIVE TO DATE A&P Assessment and plan (1) Hyponatremia: Sodium improved. 132 today. Repeat sodium tomorrow (2) Constipation: Patient likely has constipation secondary to opioid use, has tried multiple laxatives Bisacodyl suppository had little effect Continue senna docusate 2 tablets twice daily along with lactulose 10 mL twice daily. Monitor for bowel movements This is improved on her current regimen. This could have contributed to her urinary retention. Patient has a cystocele, bladder bedside ultrasound will be ordered. Patient's white blood cell count is a 24,250 increased from 20,280 yesterday possibly due to acute diverticulitis secondary previous constipation (3) Acute encephalopathy: Resolved (4) Shingles: May discontinue Valtrex. She has had an adequate course and no new lesions Start topical capsaicin cream Continue Oxycodone 5 mg p.o. Q 8 to 2.5 mg p.o. every 3 hour as needed Start low-dose Lyrica Qualifiers: Herpes zoster complications: unspecified herpes zoster complication Qualified Code(s): B02.8 - Zoster with other complications (5) Transaminitis: CBC CMP daily May be secondary to acute illness. This could also be related to the Valtrex she recently received is mild ALT and AST elevations can occur with this. Overall this is improved (6) Peripheral edema: Patient was given 1 dose of furosemide 20 mg IV push on admission continue to monitor Edema appears significantly improved/resolved (7) Heart murmur: EKG, echocardiogram Chest x-ray does not show cardiac enlargement Echo demonstrates preserved EF, trace MR, moderate AR, mild (8) Type 2 diabetes mellitus: Sliding scale insulin Carbohydrate controlled diet Hemoglobin A1c is elevated. Qualifiers: Diabetes mellitus complication status: without complication Diabetes mellitus mcc insulin use: without mcc use Qualified Code(s): E11.9 - Type 2 diabetes mellitus without complications Plan Urinary retention resolved. Constipation has been treated. Stephenson is removed. continue Flomax CBC CMP tomorrow morning to monitor for changes in liver enzymes and sodium Mild hypokalemia unchaged from yesterday, continue supplement Significant increased leukocytosis from yesterday. Chest x-ray negative for infection. Blood cultures negative to date. Repeat urinalysis Continue Rocephin empirically. Allow natural . Discussed with patient and daughters Lovenox will suffice for DVT prophylaxis Attestations 2 Medical Necessity Statement*: Patient needs continued hospitalization due to rapid increase in WBC count needing inpatient monitoring diagnosis and treatment. Coding Level of Care Code 61167 Diagnoses Hyponatremia E87.1 Constipation K59.00 Acute encephalopathy G93.40 Shingles B02.8 Herpes zoster complications: unspecified herpes zoster complication Transaminitis R74.01 Peripheral edema R60.0 Heart murmur R01.1 Type 2 diabetes mellitus without complication, without long-term current use of insulin E11.9 Diabetes mellitus complication status: without complication Diabetes mellitus middle or intermediate school principal insulin use: without mcc use Time Spent (min) 27 Documented by User: Subhash Zendejas MD 01/02/24 10:28 Subjective 2 Subjective: Kassy Baldwin is an 88-year-old female who presents to the ED 12/30/2023 with altered mental status, significant pain from shingles, and constipation of 8 days, Her AMS and constipation have been resolved in the hospital, and she has no active shingles lesions but has continued pain. Today patient is alert and oriented, and has gotten up to brush her teeth. Her pain is significantly better but had a flare last night after she was given her opioid medication over an hour and a half late. She reports mild abdominal cramping. No nausea or vomiting has eaten breakfast well. Patient has had several small bowel movement and is urinating normally. Patient reports no fever or chills, lightheadedness or chest pain or other symptoms. She does not want to go to a nursing facility for rehab, though her family desires this. She denies any diarrhea. Physical Exam 2 Urinary Catheter Management: Stephenson Latex: Cath Placed During This Visit: yes Data 01/02/24 04:19 01/02/24 04:19 A&P Assessment and plan (1) Hyponatremia: Sodium improved. 132 today. Repeat sodium tomorrow Low-dose loop diuretic 20 mg daily will be continued (2) Constipation: Patient likely has constipation secondary to opioid use, has tried multiple laxatives Bisacodyl suppository had little effect Continue senna docusate 2 tablets twice daily along with lactulose 10 mL twice daily. Monitor for bowel movements This is improved on her current regimen. This could have contributed to her urinary retention. Patient has a cystocele, check bladder scan today Patient's white blood cell count is a 24,250 increased from 20,280 yesterday. Her only symptomatology is a little bit of abdominal discomfort currently. CT scan of chest abdomen pelvis, concern with significantly increasing white blood cell count despite empiric Rocephin with no clear etiology of infection other than perhaps an asymptomatic sinus inflammation on CT head (3) Acute encephalopathy: (4) Shingles: Valtrex was discontinued. She has had an adequate course and no new lesions Start topical capsaicin cream Continue Oxycodone 5 mg p.o. Q 8 to 2.5 mg p.o. every 3 hour as needed Start low-dose Lyrica Qualifiers: Herpes zoster complications: unspecified herpes zoster complication Qualified Code(s): B02.8 - Zoster with other complications (5) Transaminitis: (6) Peripheral edema: Patient was given 1 dose of furosemide 20 mg IV push on admission continue to monitor Edema appears significantly improved/resolved She was placed on 20 mg daily (7) Heart murmur: (8) Type 2 diabetes mellitus: Qualifiers: Diabetes mellitus complication status: without complication Diabetes mellitus middle or intermediate school principal insulin use: without middle or intermediate school principal use Qualified Code(s): E11.9 - Type 2 diabetes mellitus without complications Diagnoses Hyponatremia E87.1 Constipation K59.00 Acute encephalopathy G93.40 Shingles B02.8 Herpes zoster complications: unspecified herpes zoster complication Transaminitis R74.01 Peripheral edema R60.0 Heart murmur R01.1 Type 2 diabetes mellitus without complication, without long-term current use of insulin E11.9 Diabetes mellitus complication status: without complication Diabetes mellitus middle or intermediate school principal insulin use: without mcc use Time Spent (min) 27
[2024-01-02] MEDS: potassium chloride ER 20 mEq Tablet 40 MEQ PO (10:13)
[2024-01-02 11:16] LABS: Glucose Point of Care 209 mg/dL (70-110)
[2024-01-02] MEDS: FUROsemide 20 mg Tablet PO (11:43)
[2024-01-02] MEDS: enoxaparin 40 mg/0.4 mL Syringe SUBCUT (11:45)
[2024-01-02] MEDS: pregabalin 25 mg Capsule PO ×2 (11:57→17:50)
[2024-01-02] MEDS: insulin lispro 100 unit/1 mL SUBCUT ×3 (13:22→21:53)
[2024-01-02] MEDS: iohexol 350 mg/mL 500 mL Btl (per mL) IV (14:26)
[2024-01-02 16:56] LABS: Glucose Point of Care 217 mg/dL (70-110)
[2024-01-02] MEDS: metroNIDAZOLE IV 500 MG/100 ML PREMIX 100 MG IV (17:50)
[2024-01-02 21:45] LABS: Glucose Point of Care 273 mg/dL (70-110)
[2024-01-03] VITALS (7 sets, daily range): BP systolic 129–148; BP diastolic 67–79; PULSE 90–106; RESP 15–16; TEMP 36.6–36.8; O2SAT 95–97; BMI 22.2
[2024-01-03] MEDS: metroNIDAZOLE IV 500 MG/100 ML PREMIX 100 MG IV ×2 (00:20→08:38)
[2024-01-03] MEDS: oxyCODONE 5 mg IR Tab/Cap 2.5 MG PO ×4 (02:37→12:18)
[2024-01-03 05:17] LABS: Basophils % 0.2 %; Eosinophils # 0.1 10^3/uL (0.0-0.8); Eosinophils % 0.6 %; Lymphocytes # 2.9 10^3/uL (0.8-4.8); Mean Corpuscular HGB Conc 32.8 g/dL (30-55); Mean Corpuscular Hemoglobin 30.6 pg (27-33); Mean Corpuscular Volume 93.3 fl (85-98); Mean Platelet Volume 9.9 fL (7.4-10.4); Monocytes # 1.6 10^3/uL (0.2-0.9); Monocytes % 8.6 %; Neutrophils # 14.25 10^3/uL (1.8-7.7); Nucleated Red Blood Cells % 0 %; Platelet Count 247 10^3/cmm (157-399); Red Blood Count 3.86 10^6/uL (3.85-5.65); Red Cell Distribution Width 13.7 % (12.1-15.1); White Blood Count 19.01 10^3/uL (3.29-11.43)
[2024-01-03 05:36] LABS: Anion Gap 14.4 (5-19); Blood Urea Nitrogen 5 mg/dL (8-23); Calcium 8.7 mg/dL (8.5-10.5); Carbon Dioxide 27 mmol/L (22-29); Chloride 93 mmol/L (98-107); Glucose 173 mg/dL (65-115); Osmolality Calculated 273 mOsm/kg (285-295); Potassium 3.4 mmol/L (3.5-5.1); Sodium 131 mmol/L (136-145)
[2024-01-03] MEDS: cefTRIAXone 1,000 MG in sodium chloride 0.9% (plus) 50 ML 100 MG IV (05:56)
[2024-01-03] MEDS: lactulose oral liq 20 gm/30 mL UDC 10 GM PO (08:12)
[2024-01-03 08:15] LABS: Glucose Point of Care 252 mg/dL (70-110)
[2024-01-03] MEDS: sennosides-docusate Tablet 2 TAB PO (08:29)
[2024-01-03] MEDS: tamsulosin 0.4 mg Capsule PO (08:31)
[2024-01-03] MEDS: pantoprazole DR 40 mg Tablet PO (08:33)
[2024-01-03] MEDS: FUROsemide 20 mg Tablet PO (08:34)
[2024-01-03] MEDS: pregabalin 25 mg Capsule PO (08:35)
[2024-01-03] MEDS: levothyroxine 100 mcg Tablet PO (08:36)
[2024-01-03] MEDS: potassium chloride ER 20 mEq Tablet 40 MEQ PO (09:53)
[2024-01-03] MEDS: insulin lispro 100 unit/1 mL SUBCUT ×2 (09:54→12:39)
--- NOTE | 2024-01-03 10:31 | P.DS_ITS ---
Discharge Providers Date of Admission: 12/30/23 08:29 Date of Discharge: January 03, 2024 Attending Provider at Admission: Subhash Zendejas MD Attending Provider at Discharge: Subhash Zendejas MD Primary Care Provider: Jonah Moran MD Diagnoses at Discharge Discharge Diagnosis (1) Hyponatremia: Status: Acute (2) Constipation: Status: Acute (3) Acute encephalopathy: Status: Acute (4) Shingles: Status: Acute Qualifiers: Herpes zoster complications: unspecified herpes zoster complication Qualified Code(s): B02.8 - Zoster with other complications (5) Transaminitis: Status: Acute (6) Peripheral edema: Status: Acute (7) Heart murmur: Status: Acute (8) Type 2 diabetes mellitus: Status: Acute Qualifiers: Diabetes mellitus long term acute care registered nurse insulin use: without long term acute care registered nurse use Diabetes mellitus complication status: without complication Qualified Code(s): E11.9 - Type 2 diabetes mellitus without complications Reason for Visit Reason for Visit: BACK PAIN Hospital Course Hospital Course Kassy is an 88-year-old white female who presented to the hospital with hyponatremia, constipation, and encephalopathy. She was treated with diuretic, normal saline, and had slow improvement of her sodium and resolution of her encephalopathy. Constipation was treated with a bowel regimen which improved. She did have escalating white blood cell count while in the hospital, and on repeat imaging there was concern for possible colitis. She received some Rocephin and Flagyl in the hospital and had decreasing white blood cell count by the time of discharge. At time of discharge she had become stronger, and had refused any home health or fci placement. I asked that she follow- up with her primary care provider in 3 to 5 days and have a BMP on follow-up. She will be discharged on oral antibiotics. She will be discharged on a bowel regimen. Secondary to her underlying issues with some postherpetic neuralgia, Lyrica was added to her regimen which she tolerated in the hospital. I would also asked that her primary care provider review her blood sugars, and her a elevated hemoglobin A1c. She had been somewhat resistant to taking diabetic medications in the past but this should be revisited on follow-up. She was given opportunity ask questions, and agreed with the plan Physical Exam Narrative: General exam is no distress Neck is supple no lymphadenopathy thyromegaly Cardiovascular regular rate and rhythm with a 3/6 systolic murmur Lungs clear Abdomen is soft, nontender Extremities no sinus clubbing edema Back demonstrated no active shingles lesions, only scarring from pre-existing lesions. Urinary Catheter Management: Stephenson Latex: Cath Placed During This Visit: yes Reason for Continuing Indwelling Catheter: Acute Urinary Retention or Obstruction Urinary Catheter Date of Insertion: 12/30/23 Urinary Catheter Time of Insertion: 04:45 Discharge Data Studies Completed and Pending Completed Studies During Hospitalization Category Date Time Status CT chest abdomen pelvis [CT chest abdpel w/*[id number] Cat Scan 01/02/24 08:45 Completed ] Routine CT head wo con* [id number] Routine Cat Scan 12/30/23 11:[address] kidney stone [id number] Stat Cat Scan 12/30/23 06:37 Completed XR KUB portable [id number] Stat Exams 12/30/23 04:32 Completed XR chest 1V portable [id number] Routine Exams 12/30/23 09:32 Completed XR chest 1V portable [id number] Routine Exams 01/01/24 06:30 Completed CV. echo complete* [id number] Routine Ultrasound 12/30/23 11:17 Completed Pending at discharge Category Date Time Status Blood Culture Stat Lab 01/01/24 08:09 Results Urine Culture Routine Lab 01/01/24 07:26 Results Radiology Impressions KUB X-Ray 12/30/23 04:32 IMPRESSION: 1. No small bowel obstruction or free air. 2. Advanced constipation is likely. Abdomen/Pelvis CT 12/30/23 06:37 IMPRESSION: Negative for acute abdominopelvic pathology. Head CT 12/30/23 11:17 IMPRESSION: 1. No acute intracranial abnormality. 2. Left frontal, maxillary, and ethmoid sinusitis. Chest/Abdomen/Pelvis CT 01/02/24 08:45 IMPRESSION: 1. No evidence of acute abnormality in the chest. IMPRESSION: 1. Findings compatible with an infectious or inflammatory enteritis. 2. Possible cystitis. Correlation with urinalysis is recommended. 3. Extensive aorto bi-iliac atherosclerosis. Laboratory Results WBC 19.01 10^3/uL (3.29-11.43) H 01/03/24 04:25 RBC 3.86 10^6/uL (3.85-5.65) 01/03/24 04:25 Hgb 11.80 g/dL (11.27-16.99) 01/03/24 04:25 Hct 36.0 % (36-47) 01/03/24 04:25 MCV 93.3 fl (85-98) 01/03/24 04:25 MCH 30.6 pg (27-33) 01/03/24 04:25 MCHC 32.8 g/dL (30-55) 01/03/24 04:25 RDW 13.7 % (12.1-15.1) 01/03/24 04:25 Plt Count 247 10^3/cmm (157-399) 01/03/24 04:25 MPV 9.9 fL (7.4-10.4) 01/03/24 04:25 Neut % (Auto) 75.0 % 01/03/24 04:25 Lymph % (Auto) 15.0 % 01/03/24 04:25 [place] % (Auto) 8.6 % 01/03/24 04:25 Eos % (Auto) 0.6 % 01/03/24 04:25 Baso % (Auto) 0.2 % 01/03/24 04:25 Neut # (Auto) 14.25 10^3/uL (1.8-7.7) H 01/03/24 04:25 Lymph # (Auto) 2.9 10^3/uL (0.8-4.8) 01/03/24 04:25 [place] # (Auto) 1.6 10^3/uL (0.2-0.9) H 01/03/24 04:25 Eos # (Auto) 0.1 10^3/uL (0.0-0.8) 01/03/24 04:25 Baso # (Auto) 0.0 10^3/uL (0.0-0.1) 01/03/24 04:25 Nucleated RBC % (auto) 0 % 01/03/24 04:25 Nucleated RBCs # 0.0 /100WBC 01/03/24 04:25 Sodium 131 mmol/L (136-145) L 01/03/24 04:25 Potassium 3.4 mmol/L (3.5-5.1) L 01/03/24 04:25 Chloride 93 mmol/L (98-107) L 01/03/24 04:25 Carbon Dioxide 27 mmol/L (22-29) 01/03/24 04:25 Anion Gap 14.4 (5-19) 01/03/24 04:25 BUN 5 mg/dL (8-23) L 01/03/24 04:25 Creatinine 0.5 mg/dL (0.5-0.9) 01/03/24 04:25 GFR Calculation Not Reportable 01/03/24 04:25 Glucose 173 mg/dL (65-115) H 01/03/24 04:25 POC Glucose 252 mg/dL (70-110) H 01/03/24 08:13 Estimat Average Glucose 226 12/30/23 05:00 Hemoglobin A1c 9.5 % (4.0-6.0) H 12/30/23 05:00 Calculated Osmolality 273 mOsm/kg (285-295) L 01/03/24 04:25 Lactic Acid 1.1 mmol/L (0.5-2.2) 12/30/23 05:29 Calcium 8.7 mg/dL (8.5-10.5) 01/03/24 04:25 Magnesium 2.2 mg/dL (1.7-2.3) 12/31/23 04:19 Total Bilirubin 0.5 mg/dL (0.15-1.2) 01/02/24 04:19 AST 22 U/L (0-32) 01/02/24 04:19 ALT 21 U/L (0-33) 01/02/24 04:19 Alkaline Phosphatase 105 U/L (35-105) 01/02/24 04:19 C-Reactive Protein 3.0 mg/L (0.0-4.9) 12/30/23 05:29 NT-Pro-B Natriuret Pep 183 pg/mL (0-450) 12/30/23 05:29 Total Protein 5.7 g/dL (6.6-8.7) L 01/02/24 04:19 Albumin 3.2 g/dL (3.5-5.2) L 01/02/24 04:19 Globulin 2.5 g/dL (1.3-4.6) 01/02/24 04:19 Random Cortisol 20.03 ug/dL (2.47-19.5) H 12/30/23 05:29 Urine Color Yellow (Yellow) 01/01/24 07:26 Urine Appearance Clear (CLEAR) 01/01/24 07:26 Urine pH 7 (5-7) 01/01/24 07:26 Ur Specific [place] 1.015 (1.005-1.030) 01/01/24 07:26 Urine Protein Neg (Negative) 01/01/24 07:26 Urine Glucose (UA) Norm (Normal) 01/01/24 07:26 Urine Ketones 1+ (Negative) H 01/01/24 07:26 Urine Blood Neg (Negative) 01/01/24 07:26 Urine Nitrate Negative (Negative) 01/01/24 07:26 Urine Bilirubin Neg (Negative) 01/01/24 07:26 Urine Urobilinogen Norm mg/dL (Negative) 01/01/24 07:26 Ur Leukocyte Esterase Negative (Negative) 01/01/24 07:26 Urine RBC None /hpf (0-2) 01/01/24 07:26 Urine WBC 0-4 /hpf (0-5) H 01/01/24 07:26 Ur Squamous Epith Cells 0-4 /hpf (0-5) H 01/01/24 07:26 Amorphous Sediment Trace /hpf 01/01/24 07:26 Urine Bacteria None /hpf (NONE) 01/01/24 07:26 Fine Granular Casts Rare /lpf 01/01/24 07:26 Urine Mucus Trace /hpf 01/01/24 07:26 Vitals Last Vital Signs Temp 98.3 F 01/03/24 08:00 Pulse 106 H 01/03/24 08:00 Resp 15 01/03/24 08:26 BP 148/67 01/03/24 08:00 Pulse Ox 95 01/03/24 08:00 O2 Del Method Room Air 01/03/24 08:00 Discharge Plan Discharge Patient Disposition: Home Condition: Stable Prescriptions: New pregabalin 25 mg Capsule 25 mg PO BID Qty: 60 0RF pantoprazole 40 mg Tablet,Delayed Release (Dr/Ec) 40 mg PO DAILY Qty: 30 0RF sennosides-docusate sodium [Stool Softener-Laxative] 8.6-50 mg Tablet 2 tab PO BID Qty: 120 0RF metronidazole 500 mg tablet 500 mg PO TID Qty: 15 0RF capsaicin 0.025 % Cream 1 applic topical QID PRN (Reason: Pain) Qty: 30 0RF lactulose 20 gram/30 mL Solution 10 g PO BID Qty: 900 0RF tamsulosin 0.4 mg Capsule 0.4 mg PO DAILY Qty: 30 0RF furosemide 20 mg Tablet 20 mg PO DAILY@0800 Qty: 30 0RF cefdinir 300 mg capsule 300 mg PO BID 5 Days Qty: 10 0RF Continued ascorbate calcium (vitamin C) 500 mg tablet See Rx Instructions .ROUTE .COMPLEX Rx Instructions: TAKE 1000 MG BY MOUTH 2 OR 3 TIMES WEEKLY. magnesium 200 mg tablet See Rx Instructions .ROUTE .COMPLEX Rx Instructions: TAKE 200 MG BY MOUTH 2 OR 3 TIMES WEEKLY. oxycodone 5 mg tablet 5 mg PO Q8H PRN (Reason: pain) 30 Days Qty: 90 0RF cholecalciferol (vitamin D3) [Vitamin D3] 125 mcg (5,000 unit) Tablet See Rx Instructions .ROUTE .COMPLEX Rx Instructions: TAKE 125 mcg BY MOUTH 2 OR 3 TIMES WEEKLY. levothyroxine 100 mcg tablet 100 mcg PO DAILY lidocaine-prilocaine 2.5-2.5 % Cream 2 applic topical Q12H Qty: 30 0RF Discontinued lactulose 10 gram/15 mL solution 0.75 ml PO BID valacyclovir 1 gram Tablet 1,000 mg PO Q8H Qty: 21 0RF Discharge Orders: Discharge Order (Routine); Ordered 01/03/24 Ordered By: Subhash Zendejas Referrals: Jonah Moran MD [Primary Care Provider] - 4-7 days (BMP on follow-up) Discharge Diet: Diabetic Discharge Activity: Increase activity as tolerated Patient Instructions: Opioid Safety Activity Restrictions/Additional Instructions: Discussed with your provider treatment for diabetes, elevated glucose noted in the hospital. Follow a consistent carb diet BMP on follow-up with your provider Take all medicine as prescribed Return for any concerns Discharge Attestations Time Spent in Discharge Care*: greater than 30 min Quality Metrics Clinical Quality Measures [ No reported AMI, CVA or VTE this stay] Coding Level of Care Code 79621 Total time (in minutes) for Discharge: 37 Diagnoses Hyponatremia E87.1 Constipation K59.00 Acute encephalopathy G93.40 Shingles B02.8 Herpes zoster complications: unspecified herpes zoster complication Transaminitis R74.01 Peripheral edema R60.0 Heart murmur R01.1 Type 2 diabetes mellitus without complication, without long-term current use of insulin E11.9 Diabetes mellitus snf insulin use: without long term acute care registered nurse use Diabetes mellitus complication status: without complication
--- NOTE | 2024-01-03 11:00 | PC.SOCIAL ---
IMM Update pg 2 of IMM updated and reviewed w/ patient. Copy provided and copy dated, initialed and placed in chart.
[2024-01-03 11:30] LABS: Glucose Point of Care 284 mg/dL (70-110)
[2024-01-03] MEDS: enoxaparin 40 mg/0.4 mL Syringe SUBCUT (12:17)
== END 2024-01-03 13:40 | disposition home or self-care (01) | DRG 641 ==
LOC: ER 07:19 → ER IP 09:11 → MEDSURG 14:41
PROVIDERS: Emergency Medicine; Admitting Provider Internal Medicine; Emergency Provider Family Medicine; PCP Family Medicine; Visit Provider Internal Medicine
DX: E87.1 Hypo-osmolality and hyponatremia (principal); M48.54XA Collapsed vertebra, not elsewhere classified, thoracic region, initial encounter for fracture; G93.40 Encephalopathy, unspecified; B02.29 Other postherpetic nervous system involvement; E11.9 Type 2 diabetes mellitus without complications; K21.9 Gastro-esophageal reflux disease without esophagitis; K44.9 Diaphragmatic hernia without obstruction or gangrene; G89.29 Other chronic pain; K59.03 Drug induced constipation; T40.2X5A Adverse effect of other opioids, initial encounter; E03.9 Hypothyroidism, unspecified; R60.0 Localized edema; R01.1 Cardiac murmur, unspecified; R74.01 Elevation of levels of liver transaminase levels; E87.6 Hypokalemia; R33.9 Retention of urine, unspecified; B02.9 Zoster without complications
CPT/HCPCS: 36415; 36416; 51702; 70450; 71045; 71260; 74018; 74176; 74177; 80048; 80053; 81001; 81003; 82533; 82962; 83036; 83605; 83735; 83880; 85025; 86140; 87040; 87077; 87086; 87186; 93005; 93306; 96372; 96374; 96375; 96376; 97116; 97161; 97165; 97530; 99285; J0696; J1170; J1650; J1815; J1940; J2270; J2405; J3490; J7030; Q9967

== ENCOUNTER → 2024-01-14 09:47 | Outpatient (BNVA) | payer MEDICARE, SELFPAY | PROVIDERS: PCP Family Medicine; Visit Provider Family Medicine | DX: E87.1 Hypo-osmolality and hyponatremia (principal) | CPT/HCPCS: 80048 ==

== ENCOUNTER → 2024-02-13 15:43 | Outpatient (BNVA) | payer MEDICARE, SELFPAY | PROVIDERS: PCP Family Medicine; Visit Provider Physician Assistant | DX: R30.9 Painful micturition, unspecified (principal) | CPT/HCPCS: 81000 ==

== ENCOUNTER 2024-02-26 12:41 | Emergency (ER) | payer MEDICARE, SELFPAY ==
[2024-02-26 13:04] VITALS: BP 149/72; PULSE 87; RESP 16; TEMP 36.4; O2SAT 98; BMI 19.3
--- NOTE | 2024-02-26 13:29 | XR_ITS ---
WS: [id number] Examination: XR lumbar spine 2-3V* [id number] Reason for Exam: low back pain Date: February 26, 2024 Comparison: None. Findings: The bone density is diminished. The pedicles are intact. There is compression of L4 with loss of greater than 50% of the vertebral body height. This is new. N o other lumbar compression or wedging is identified. There is anterolisthesis at L4-5 which appears s table There is dominant L5-S1 disc space narrowing Facet arthropathy is identified in the mid and lower lumbar spine. Impression: There is new compression of L4 with loss of greater than 50% of the vertebral body height. Anterolist hesis has been present previously. MR would be of benefit to assess any impingement.
--- NOTE | 2024-02-26 13:33 | W.ED.BACK ---
Documented by User: KATTY Mcintyre 02/26/24 16:57 HPI - Back Pain/Injury General: Chief Complaint: Back Pain/Injury Stated Complaint: back, hip, right leg pain Time Seen by Provider: 02/26/24 13:09 Source: patient Mode of arrival: wheelchair Limitations: no limitations History of Present Illness: Patient is 88-year-old female presenting to the emergency department complaining of low back pain onset over the past week. Patient states that prior to the pain she was sent on the porch and doing chores with minimal exertion, but notes that the pain started soon after this. The pain shoots down both legs, and everything she has tried has not helped with pain. She notes that the pain is to the lumbar spine, and radiates to the right and left paralumbar muscles. No red flag symptoms such as bowel or bladder incontinence, saddle anesthesia, fevers. 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 No other symptoms reported at this time. MD elicited complaint: back pain Onset (ago): week(s) (1) Timing: constant Severity: severe Similar Symptoms Previously: No Location: lumbar spine, right lower back and left lower back Exacerbating factors: movement Relieving factors: none Associated symptoms: Deny abdominal pain, chills, dysuria, fatigue, fever(s), nausea or vomiting Review of Systems General: Reports: 10 or more systems reviewed and unremarkable except in HPI and below Const: Denies: fever(s), chills or fatigue Eyes: Denies: change in vision ENMT: Denies: throat pain, ear or mastoid pain or nasal discharge Card: Denies: chest pain, palpitations, swelling of feet/ankles or lightheadedness Resp: Denies: dyspnea, productive cough or wheezing GI: Denies: abdominal pain, nausea, vomiting, diarrhea or constipation : Denies: flank pain, difficulty voiding, dysuria or urinary frequency Musc: Reports: back pain and extremity pain (Bilateral lower); Denies: neck pain or joint pain Skin/Breast: Denies: rash Neuro: Denies: headache(s), numbness in extremities or weakness in extremities PFS ED PFSH: Medical History Constipation Type 2 diabetes mellitus GERD (gastroesophageal reflux disease) Hiatal hernia Compression fracture of thoracic spine, non-traumatic Cervical lymphadenopathy Chronic pain Hypothyroid Surgical History History of cholecystectomy History of hysterectomy Social History Smoking and tobacco/nicotine status: never used tobacco/nicotine Second hand smoke exposure: No Alcohol intake: never Substance/Drug Use: never Physical Exam Const: COMMON NORMALS: no acute distress, patient oriented x3 and no limitations GENERAL APPEARANCE: cooperative, comfortable and well developed ORIENTATION/CONSCIOUSNESS: Yes awake, Yes oriented to person, Yes oriented to place and Yes oriented to time HENMT: COMMON NORMALS: normocephalic, atraumatic and hearing grossly normal bilaterally HEAD & SCALP: normocephalic and atraumatic Eye: COMMON NORMALS: Equal, round and reactive pupils present, EOMs intact bilaterally and conjunctivae normal CONJUNCTIVA: Yes conjunctivae normal PUPIL: Yes Equal, round and reactive pupils present Neck/C-Spine: COMMON NORMALS: full ROM, supple and no JVD Resp: COMMON NORMALS: normal respiratory effort, No retractions, No use of accessory muscles and clear to auscultation bilaterally AUSCULTATION: clear to auscultation bilaterally Cardio: COMMON NORMALS: no JVD, regular rate, regular rhythm, No clicks present (Cardio), No murmurs present (Cardio) and No rub (Cardio) RATE: regular rate RHYTHM: regular rhythm GI: COMMON NORMALS: Normal to inspection, nondistended, normoactive bowel sounds present, Soft to palpation and non-tender AUSCULTATION: Yes normoactive bowel sounds PALPATION: Yes Soft to palpation RECTAL EXAM: deferred : COMMON NORMALS: Yes no CVA tenderness BLADDER/KIDNEY EXAM: Yes no CVA tenderness Back/Pelvis: COMMON NORMALS: no CVA tenderness and thoracic and lumbar spine normal to inspection THORACIC SPINE/UPPER BACK: Yes normal to inspection and Yes thoracic ROM normal LUMBAR SPINE/LOWER BACK: Yes normal to inspection, Yes ROM limited, Yes pain with ROM, Yes lumbar spinal tenderness and Yes paraspinal muscle tenderness Lumbar paraspinal muscle tenderness: bilateral Extremity: COMMON NORMALS: normal to inspection, full ROM, capillary refill normal, no joint enlargement, no clubbing, cyanosis or edema and no pedal edema OTHER: Hip joints nontender to palpation with no obvious deformity or bruising Neuro: COMMON NORMALS: patient oriented x3, moves all extremities, no focal motor deficits and no sensory deficits noted SENSORIUM/ORIENTATION: Yes oriented to person, Yes oriented to place and Yes oriented to time Psych: COMMON NORMALS: mental status grossly normal and Normal thought process present THOUGHT PROCESS: Normal thought process present Skin: COMMON NORMALS: no rashes or lesions noted GENERAL SKIN EXAM: no rashes or lesions noted Course Vital Signs: Vital signs: Vital Signs Temperature 97.5 F L 02/26/24 13:04 Pulse Rate 74 02/26/24 15:58 Respiratory Rate 16 02/26/24 15:39 Blood Pressure 149/72 02/26/24 13:04 Pulse Oximetry 95 02/26/24 15:58 MDM - Back Pain/Injury Medical Decision Making This patient was seen and evaluated due to an acute on chronic exacerbation of her back pain over the past week. Patient currently on Lyrica for neuropathic pain, and takes oxycodone regularly. She notes no significant inciting event for the back pain, however has found it difficult to get around and do her independent activities of daily living. I had a separate conversation with the daughter outside of the room during examination, who states that she wants her mom placed somewhere that she can be taken care of on a regular basis. X-ray of patient's back showed a potential new decompression fracture, however no emergent findings that warranted orthopedic consultation. I will refer the patient on an outpatient basis. Patient's pain controlled in the ED with 2 shots of IV morphine and a shot of Norflex. Informed her that if she needs medication adjustments, she needs to follow-up with her primary care for this. Her vitals have been normal and stable throughout her ED stay. I informed daughter that arrangement for assisted living/longterm placement can be handled on an outpatient basis as well. All other questions and concerns are addressed at this time and patient and daughter agree with discharge home. All radiology interpretation(s) finalized by discharge Discharge Plan Discharge Patient Disposition: Home Clinical Impression: Lumbar radiculopathy Condition: Stable Prescriptions: No Action ascorbate calcium (vitamin C) 500 mg tablet See Rx Instructions .ROUTE .COMPLEX Rx Instructions: TAKE 1000 MG BY MOUTH 2 OR 3 TIMES WEEKLY. sulfamethoxazole-trimethoprim [Bactrim DS] 800-160 mg tablet 1 tab PO BID 7 Days Qty: 14 0RF hydroxyzine HCl 25 mg tablet 25 mg PO BID PRN (Reason: anxiety) Qty: 30 0RF tamsulosin 0.4 mg capsule 0.4 mg PO DAILY Qty: 30 5RF lactulose 20 gram/30 mL solution 10 g PO BID Qty: 900 4RF Stool Softener-Laxative 8.6-50 mg tablet 2 tab PO BID Qty: 120 5RF furosemide 20 mg tablet 20 mg PO DAILY@0800 Qty: 30 0RF pregabalin 25 mg capsule 25 mg PO TID Qty: 60 1RF levothyroxine 100 mcg tablet 100 mcg PO DAILY Qty: 90 3RF nystatin 100,000 unit/gram cream 1 applic topical BID Qty: 30 1RF Levemir FlexPen 100 unit/mL (3 mL) insulin pen See Rx Instructions .ROUTE .COMPLEX Qty: 15 0RF Dose Instruction: ADMINISTER 20 UNITS UNDER THE SKIN DAILY AT NOON Rx Instructions: ADMINISTER 20 UNITS UNDER THE SKIN DAILY AT NOON pantoprazole 40 mg tablet,delayed release (DR/EC) See Rx Instructions .ROUTE .COMPLEX Qty: 90 0RF Dose Instruction: TAKE 1 TABLET BY MOUTH DAILY Rx Instructions: TAKE 1 TABLET BY MOUTH DAILY oxycodone 5 mg tablet 2.5 mg PO Q3H PRN (Reason: pain) 30 Days Qty: 120 0RF cholecalciferol (vitamin D3) [Vitamin D3] 125 mcg (5,000 unit) Tablet See Rx Instructions .ROUTE .COMPLEX Rx Instructions: TAKE 125 mcg BY MOUTH 2 OR 3 TIMES WEEKLY. Discharge Orders: Discharge ED (Routine); Ordered 02/26/24 Ordered By: Andrew Ortega Referrals: Jonah Moran MD [Primary Care Provider] - Discharge Diet: Usual diet Discharge Activity: Resume usual activity Patient Instructions: Acute Low Back Pain (ED) Activity Restrictions/Additional Instructions: Continue taking your oxycodone until follow-up with primary care. Continue other medications. Gentle range of motion activities as tolerated. Return with any new or concerning symptoms. Coding Level of Care Code ED [employer] Operator for Chg Fwd Documented by User: Reyes Shaw DO 02/29/24 08:43 HPI - Back Pain/Injury General: Chief Complaint: Back Pain/Injury Stated Complaint: back, hip, right leg pain Time Seen by Provider: 02/26/24 13:09 [facility] ED PFSH: Medical History Constipation Type 2 diabetes mellitus GERD (gastroesophageal reflux disease) Hiatal hernia Compression fracture of thoracic spine, non-traumatic Cervical lymphadenopathy Chronic pain Hypothyroid Surgical History History of cholecystectomy History of hysterectomy Social History Smoking and tobacco/nicotine status: never used tobacco/nicotine Second hand smoke exposure: No Alcohol intake: never Substance/Drug Use: never Course Vital Signs: Vital signs: Vital Signs Temperature 97.5 F L 02/26/24 13:04 Pulse Rate 74 02/26/24 15:58 Respiratory Rate 16 02/26/24 15:39 Blood Pressure 149/72 02/26/24 13:04 Pulse Oximetry 95 02/26/24 15:58 MDM - Back Pain/Injury Medical Decision Making This patient was seen and evaluated due to an acute on chronic exacerbation of her back pain over the past week. Patient currently on Lyrica for neuropathic pain, and takes oxycodone regularly. She notes no significant inciting event for the back pain, however has found it difficult to get around and do her independent activities of daily living. I had a separate conversation with the daughter outside of the room during examination, who states that she wants her mom placed somewhere that she can be taken care of on a regular basis. X-ray of patient's back showed a potential new decompression fracture, however no emergent findings that warranted orthopedic consultation. I will refer the patient on an outpatient basis. Patient's pain controlled in the ED with 2 shots of IV morphine and a shot of Norflex. Informed her that if she needs medication adjustments, she needs to follow-up with her primary care for this. Her vitals have been normal and stable throughout her ED stay. I informed daughter that arrangement for assisted living/longterm placement can be handled on an outpatient basis as well. All other questions and concerns are addressed at this time and patient and daughter agree with discharge home. Chart reviewed Medical Records I reviewed the patient's medical records. Labs I reviewed the patient's lab results. Discharge Plan Discharge Patient Disposition: Home Clinical Impression: Lumbar radiculopathy Condition: Stable Prescriptions: No Action ascorbate calcium (vitamin C) 500 mg tablet See Rx Instructions .ROUTE .COMPLEX Rx Instructions: TAKE 1000 MG BY MOUTH 2 OR 3 TIMES WEEKLY. sulfamethoxazole-trimethoprim [Bactrim DS] 800-160 mg tablet 1 tab PO BID 7 Days Qty: 14 0RF hydroxyzine HCl 25 mg tablet 25 mg PO BID PRN (Reason: anxiety) Qty: 30 0RF tamsulosin 0.4 mg capsule 0.4 mg PO DAILY Qty: 30 5RF lactulose 20 gram/30 mL solution 10 g PO BID Qty: 900 4RF Stool Softener-Laxative 8.6-50 mg tablet 2 tab PO BID Qty: 120 5RF furosemide 20 mg tablet 20 mg PO DAILY@0800 Qty: 30 0RF pregabalin 25 mg capsule 25 mg PO TID Qty: 60 1RF levothyroxine 100 mcg tablet 100 mcg PO DAILY Qty: 90 3RF nystatin 100,000 unit/gram cream 1 applic topical BID Qty: 30 1RF Levemir FlexPen 100 unit/mL (3 mL) insulin pen See Rx Instructions .ROUTE .COMPLEX Qty: 15 0RF Dose Instruction: ADMINISTER 20 UNITS UNDER THE SKIN DAILY AT NOON Rx Instructions: ADMINISTER 20 UNITS UNDER THE SKIN DAILY AT NOON pantoprazole 40 mg tablet,delayed release (DR/EC) See Rx Instructions .ROUTE .COMPLEX Qty: 90 0RF Dose Instruction: TAKE 1 TABLET BY MOUTH DAILY Rx Instructions: TAKE 1 TABLET BY MOUTH DAILY oxycodone 5 mg tablet 2.5 mg PO Q3H PRN (Reason: pain) 30 Days Qty: 120 0RF cholecalciferol (vitamin D3) [Vitamin D3] 125 mcg (5,000 unit) Tablet See Rx Instructions .ROUTE .COMPLEX Rx Instructions: TAKE 125 mcg BY MOUTH 2 OR 3 TIMES WEEKLY. Discharge Orders: Discharge ED (Routine); Ordered 02/26/24 Ordered By: Andrew Ortega Referrals: Jonah Moran MD [Primary Care Provider] - Discharge Diet: Usual diet Discharge Activity: Resume usual activity Patient Instructions: Acute Low Back Pain (ED) Activity Restrictions/Additional Instructions: Continue taking your oxycodone until follow-up with primary care. Continue other medications. Gentle range of motion activities as tolerated. Return with any new or concerning symptoms. Coding Level of Care Code ED [employer] Operator for Priyanka Banks
[2024-02-26 13:50] VITALS: RESP 15
[2024-02-26] MEDS: morphine 4 mg/mL SDV 1 mL IM ×2 (13:50→15:39)
[2024-02-26] MEDS: orphenadrine 30 mg/mL Inj 2 mL 60 MG IM (13:53)
[2024-02-26 15:39] VITALS: RESP 16
[2024-02-26 15:58] VITALS: PULSE 74; O2SAT 95
== END 2024-02-26 16:00 | disposition home or self-care (01) ==
PROVIDERS: Emergency Provider Physician Assistant; PCP Family Medicine
DX: M54.16 Radiculopathy, lumbar region (principal); Z79.4 Long term (current) use of insulin; E11.9 Type 2 diabetes mellitus without complications
CPT/HCPCS: 72100; 96372; 99284; J2270; J2360

== ENCOUNTER 2024-03-11 06:00 | Outpatient (RCR) | payer MEDICARE, SELFPAY | END 2024-03-24 23:59 | disposition home or self-care (01) | LOC: WPT 06:00 | PROVIDERS: PCP Family Medicine; Visit Provider Family Medicine | DX: G89.29 Other chronic pain (principal) | CPT/HCPCS: 97161 ==

== ENCOUNTER 2025-02-08 00:08 | Emergency (ER) | payer MEDICARE, MEDICAID, SELFPAY ==
[2025-02-08] VITALS (12 sets, daily range): BP systolic 149–202; BP diastolic 76–100; PULSE 89–109; RESP 15–20; TEMP 36.5; O2SAT 91–99; BMI 22.1
--- NOTE | 2025-02-08 00:12 | ECG_ITS ---
[facility] Test Date: 2025-02-08 Pat Name: Kassy Baldwin Department: Room: Gender: Female Quality Control Associate: : 1935 Requested By: Adam Feliz Order Number: [id number] Reading MD: MARLYN MCKEON Measurements Intervals [place] Rate: 91 P: 73 UT: 196 QRS: -35 QRSD: 106 T: 60 QT: 336 QTc: 414 Interpretive Statements SINUS RHYTHM LEFT AXIS DEVIATION [QRS AXIS < -30] LEFT VENTRICULAR HYPERTROPHY AND ST-T CHANGE [VOLTAGE CRITERIA PLUS ST/T ABNORMALITY] POSSIBLE ANTERIOR MYOCARDIAL INFARCTION , OF INDETERMINATE AGE [30 ms Q WAVE IN V3/V4, OR R < 0.2 mV IN V4] Compared to ECG 12/30/2023 10:58:12 Left-axis deviation now present Left ventricular hypertrophy now present ST (T wave) deviation now present Electronically Signed On 02-08-2025 18:16:03 CDT by MARLYN MCKEON [email or web address]
--- NOTE | 2025-02-08 00:29 | CTR_ITS ---
PROCEDURE INFORMATION: Exam: CT Cervical Spine Without Contrast Exam date and time: 02/08/2025 12:48 AM Age: 89 years old Clinical indication: Injury or trauma; Fall; Blunt trauma TECHNIQUE: Imaging protocol: Computed tomography of the cervical spine without contrast. Radiation optimization: All CT scans at this facility use at least one of these dose optimization techniques: automated exposure control; mA and/or kV adjustment per patient size (includes targeted exams where dose is matched to clinical indication); or iterative reconstruction. COMPARISON: CT head wo con* [id number] 02/08/2025 12:44 AM RADIATION DOSE METRICS: Total DLP (mGy-cm): 159.17 FINDINGS: Bones: No evidence of acute osseous fracture. Vertebral body heights are maintained. Normal cervical lordosis. No spondylolisthesis. Lungs: Visualized lung apices are clear. Thyroid: Thyroid is normal. Soft tissues: Visualized superficial soft tissues are within normal limits. CT/CT cervical spin wo con* [id number] IMPRESSION: No acute fracture or subluxation of the cervical spine.
--- NOTE | 2025-02-08 00:29 | CTR_ITS ---
PROCEDURE INFORMATION: Exam: CT Head Without Contrast Exam date and time: 02/08/2025 12:44 AM Age: 89 years old Clinical indication: Injury or trauma; Fall; Blunt trauma (contusions or hematomas) TECHNIQUE: Imaging protocol: Computed tomography of the head without contrast. Radiation optimization: All CT scans at this facility use at least one of these dose optimization techniques: automated exposure control; mA and/or kV adjustment per patient size (includes targeted exams where dose is matched to clinical indication); or iterative reconstruction. COMPARISON: CT head wo con* [id number] 12/30/2023 11:39 AM RADIATION DOSE METRICS: Total DLP (mGy-cm): 1082.28 FINDINGS: Brain: Moderate to severe cerebral atrophy. No evidence of acute intracranial hemorrhage. No midline shift. Stable differentiation of nelson-white matter. Mild nonspecific periventricular white matter disease. Cerebral ventricles: Ventricles are normal in caliber. Paranasal sinuses: Total opacification of the left maxillary sinus, unchanged compared to 12/30/2023. Mastoid air cells: Mastoid air cells are clear. Bones: No acute osseous findings. Soft tissues: Soft tissue contusion overlying the right forehead. Other findings: Intracranial atherosclerosis. CT/CT head wo con* [id number] IMPRESSION: 1. Soft tissue contusion overlying the right forehead. 2. No acute intracranial findings. 3. Total opacification of the left maxillary sinus, unchanged compared to 12/30/2023.
--- NOTE | 2025-02-08 00:29 | CTR_ITS ---
PROCEDURE INFORMATION: Exam: CT Maxillofacial Without Contrast Exam date and time: 02/08/2025 12:51 AM Age: 89 years old Clinical indication: Injury or trauma; Fall; Blunt trauma (contusions or hematomas); Forehead TECHNIQUE: Imaging protocol: Computed tomography of the face without contrast. Radiation optimization: All CT scans at this facility use at least one of these dose optimization techniques: automated exposure control; mA and/or kV adjustment per patient size (includes targeted exams where dose is matched to clinical indication); or iterative reconstruction. COMPARISON: CT head wo con* [id number] 02/08/2025 12:44 AM RADIATION DOSE METRICS: Total DLP (mGy-cm): 635.48 FINDINGS: Paranasal sinuses: Total opacification of the left maxillary sinus. Subtotal opacification the left ethmoid air cells. Orbital cavities: Orbits and globes are within normal limits. Bones: No acute osseous fractures. Soft tissues: Soft tissue contusion overlying the right forehead, better seen on concurrent CT head. CT/CT facial bones wo con* [id number] IMPRESSION: 1. Soft tissue contusion overlying the right forehead, better seen on concurrent CT head. 2. No acute osseous fractures. 3. Total opacification of the left maxillary sinus. Subtotal opacification the left ethmoid air cells.
--- NOTE | 2025-02-08 00:29 | ED_ITS ---
HPI - Head Injury General: Chief complaint: Head Injury Stated complaint: FALL Time Seen by Provider: 02/08/25 00:29 History of Present Illness: Patient is a long term resident who presents following a fall with head injury. Patient reports falling while attempting to transfer from standing position to wheelchair. Denies loss of consciousness but describes sensation 'like somebody pushed me, ' though no one was present. Reports mild nausea without emesis. Endorses mild headache. Denies visual changes. Patient has been wheelchair-dependent for the past year at long term. Patient specifically denies falling from wheelchair, stating the incident occurred during transfer. Related Data Home Medications ?Medication ?Instructions ?Recorded ?Confirmed ascorbate calcium (vitamin C) 500 See Rx Instructions .Route .COMPLEX 02/20/23 03/11/24 mg tablet cholecalciferol (vitamin D3) 125 See Rx Instructions . Route .COMPLEX 12/19/23 03/11/24 mcg (5,000 unit) tablet (Vitamin D3) Previous Rx's ?Medication ?Instructions ?Recorded levothyroxine 100 mcg tablet 100 mcg PO DAILY #90 tabs 01/08/24 nystatin 100,000 unit/gram topical 1 applic topical BI D #30 grams 01/14/24 cream furosemide 20 mg tablet 20 mg PO DAILY@0800 #30 tabs 01/29/24 lactulose 20 gram/30 mL oral 10 g (15 mL) PO BID #900 mL 01/29/24 solution pregabalin 25 mg capsule 25 mg PO TID #60 caps sennosides 8.6 mg-docusate sodium 2 tab PO BID #120 ta bs 01/29/24 50 mg tablet (Stool Softener-Laxative) tamsulosin 0.4 mg capsule 0.4 mg PO DAILY #30 caps 05/18 insulin detemir U-100 100 unit/mL See Rx Instructions .Route 02/06/24 (3 mL) subcutaneous pen (Levemir .COMPLEX #15 mL FlexPen) pantoprazole 40 mg tablet,delayed See Rx Instructions .Route 02/07/24 release .COMPLEX #90 tabs hydroxyzine HCl 25 mg tablet 25 mg PO BID PRN anxiety #30 tabs 02/13/24 sulfamethoxazole 800 1 tab PO BID 7 days #14 tabs 02/13/24 mg-trimethoprim 160 mg tablet (Bactrim DS) oxycodone 5 mg tablet 2.5 mg (1/2 x 5 mg) PO Q3H P RN 02/25/24 pain 30 days #120 tabs alprazolam 0.25 mg tablet 0.25 mg PO TID PRN 03/11/24 anxiety/smothering #30 tabs Allergies Allergy/AdvReac Type Severity Reaction Status Date / Time prednisone Allergy Severe sick Verified 02/08/25 00:17 insulin detemir (From Allergy Intermediate rapid Verified 02/08/25 00:17 Levemir U-100 Insulin) heart beat metformin Allergy Intermediate unknown Verified 02/08/25 00:17 codeine Allergy Mild ADR-Itching Verified 02/08/25 00:17 /Naseua gabapentin Allergy ADR-Gastrointestinal Verified 02/08/25 00:17 Upset Macrolide Antibiotics AdvReac Mild rash/nausea Verified 02/08/25 00:17 ofloxacin (From Floxin) AdvReac Mild rash/nausea Verified 02/08/25 00:17 penicillin G AdvReac Mild rash Verified 02/08/25 00:17 Sulfa (Sulfonamide AdvReac Mild rash Verified 02/08/25 00:17 Antibiotics) PFSH ED PFSH: Medical History Constipation Type 2 diabetes mellitus GERD (gastroesophageal reflux disease) Hiatal hernia Compression fracture of thoracic spine, non-traumatic Cervical lymphadenopathy Chronic pain Hypothyroid Surgical History History of cholecystectomy History of hysterectomy Social History Smoking and tobacco/nicotine status: never used tobacco/nicotine Second hand smoke exposure: No Alcohol intake: never Substance/Drug Use: never Physical Exam Const: COMMON NORMALS: no acute distress, patient oriented x3, alert and well nourished HENMT: OTHER: Hematoma over right forehead Eye: COMMON NORMALS: Equal, round and reactive pupils present, EOMs intact bilaterally and conjunctivae normal CONJUNCTIVA: Yes conjunctivae normal PUPIL: Yes Equal, round and reactive pupils present Neck/C-Spine: COMMON NORMALS: full ROM, no lymphadenopathy, supple, no meningeal signs, no JVD and Thyroid normal THYROID: Thyroid normal Chest: COMMONS NORMALS: normal inspection of the chest and normal palpation of entire chest wall Resp: COMMON NORMALS: normal respiratory effort, No retractions, No use of accessory muscles, clear to auscultation bilaterally and percussion normal AUSCULTATION: clear to auscultation bilaterally PERCUSSION: percussion normal Cardio: COMMON NORMALS: no JVD GI: COMMON NORMALS: Normal to inspection, nondistended, normoactive bowel sounds present, Soft to palpation, non-tender, No hepatosplenomegaly present, no masses and no bruits PALPATION: Yes Soft to palpation and Yes No hepatosplenomegaly present : COMMON NORMALS: Yes no CVA tenderness BLADDER/KIDNEY EXAM: Yes no CVA tenderness Back/Pelvis: COMMON NORMALS: no CVA tenderness Extremity: COMMON NORMALS: normal to inspection, full ROM, capillary refill normal, no joint enlargement, no clubbing, cyanosis or edema, no calf tenderness and no pedal edema Neuro: COMMON NORMALS: patient oriented x3 SENSORIUM/ORIENTATION: Yes alert MENINGEAL SIGNS: Yes no meningeal signs Skin: COMMON NORMALS: no rashes or lesions noted, turgor normal and no jaundice GENERAL SKIN EXAM: no rashes or lesions noted and turgor normal Course Vital Signs: Vital signs: Vital Signs Temperature 97.7 F 02/08/25 00:10 Pulse Rate 96 02/08/25 02:00 Respiratory Rate 20 H 02/08/25 02:00 Blood Pressure 187/80 02/08/25 02:00 Pulse Oximetry 94 02/08/25 02:00 Oxygen Delivery Me thod Room Air 02/08/25 00:10 MDM - Head Injury Medcial Decision Making 1. Head Injury, Post-Fall: - CT head ordered and pending results - Monitoring for signs of intracranial hemorrhage or skull fracture - Plan to discharge if imaging reveals no acute findings 2. Fall Risk: - Will need evaluation of transfer technique - Recommend physical therapy assessment for safe transfer strategies - Consider mobility aids assessment given history of being wheelchair-bound Lab Data Radiology Impressions Cervical Spine CT 02/08/25 00:29 IMPRESSION: No acute fracture or subluxation of the cervical spine. Face CT 02/08/25 00:29 IMPRESSION: 1. Soft tissue contusion overlying the right forehead, better seen on concurrent CT head. 2. No acute osseous fractures. 3. Total opacification of the left maxillary sinus. Subtotal opacification the left ethmoid air cells. Head CT 02/08/25 00:29 IMPRESSION: 1. Soft tissue contusion overlying the right forehead. 2. No acute intracranial findings. 3. Total opacification of the left maxillary sinus, unchanged compared to 12/30/2023. All radiology interpretation(s) finalized by discharge Discharge Plan Discharge Patient Disposition: Home Clinical Impression: Closed head injury Condition: Stable Prescriptions: No Action ascorbate calcium (vitamin C) 500 mg tablet See Rx Instructions .ROUTE .COMPLEX Rx Instructions: TAKE 1000 MG BY MOUTH 2 OR 3 TIMES WEEKLY. alprazolam 0.25 mg tablet 0.25 mg PO TID PRN (Reason: anxiety/smothering) Qty: 30 0RF sulfamethoxazole-trimethoprim [Bactrim DS] 800-160 mg tablet 1 tab PO BID 7 Days Qty: 14 0RF hydroxyzine HCl 25 mg tablet 25 mg PO BID PRN (Reason: anxiety) Qty: 30 0RF tamsulosin 0.4 mg capsule 0.4 mg PO DAILY Qty: 30 5RF lactulose 20 gram/30 mL solution 10 g PO BID Qty: 900 4RF Stool Softener-Laxative 8.6-50 mg tablet 2 tab PO BID Qty: 120 5RF furosemide 20 mg tablet 20 mg PO DAILY@0800 Qty: 30 0RF pregabalin 25 mg capsule 25 mg PO TID Qty: 60 1RF levothyroxine 100 mcg tablet 100 mcg PO DAILY Qty: 90 3RF nystatin 100,000 unit/gram cream 1 applic topical BID Qty: 30 1RF Levemir FlexPen 100 unit/mL (3 mL) insulin pen See Rx Instructions .ROUTE .COMPLEX Qty: 15 0RF Dose Instruction: ADMINISTER 20 UNITS UNDER THE SKIN DAILY AT NOON Rx Instructions: ADMINISTER 20 UNITS UNDER THE SKIN DAILY AT NOON pantoprazole 40 mg tablet,delayed release (DR/EC) See Rx Instructions .ROUTE .COMPLEX Qty: 90 0RF Dose Instruction: TAKE 1 TABLET BY MOUTH DAILY Rx Instructions: TAKE 1 TABLET BY MOUTH DAILY oxycodone 5 mg tablet 2.5 mg PO Q3H PRN (Reason: pain) 30 Days Qty: 120 0RF cholecalciferol (vitamin D3) [Vitamin D3] 125 mcg (5,000 unit) Tablet See Rx Instructions .ROUTE .COMPLEX Rx Instructions: TAKE 125 mcg BY MOUTH 2 OR 3 TIMES WEEKLY. Discharge Orders: Discharge ED (Routine); Ordered 02/08/25 Ordered By: Adam Feliz Referrals: Jonah Moran MD [Physician] - Discharge Diet: Usual diet Discharge Activity: Wheelchair as instructed Patient Instructions: Opioid Safety, Pain Management Activity Restrictions/Additional Instructions: 1. Return for new or worsening symptoms. Fall precautions. Print Language: Chinese Coding Level of Care Code ED Driver Utility Worker for Priyanka Banks
--- NOTE | 2025-02-08 05:08 | ECG_ITS ---
[facility] Test Date: 2025-02-08 Pat Name: Kassy Baldwin Department: Room: Gender: Female Medical Insurance Verifier: : 1935 Requested By: Reyes Riddle Order Number: [id number] Reading MD: MARLYN MCKEON Measurements Intervals [place] Rate: 114 P: 0 [place]: 0 QRS: -40 QRSD: 98 T: 103 QT: 315 QTc: 434 Interpretive Statements SUPRAVENTRICULAR TACHYCARDIA LEFT AXIS DEVIATION [QRS AXIS < -30] VOLTAGE CRITERIA FOR LVH [MEETS CRITERIA IN ONE OF: R(aVL), S(V1), R(V5), R(V5/V6)+S(V1)] POSSIBLE ANTERIOR MYOCARDIAL INFARCTION , OF INDETERMINATE AGE [30 ms Q WAVE IN V3/V4, OR R < 0.2 mV IN V4] MODERATE T-WAVE ABNORMALITY, CONSIDER LATERAL ISCHEMIA [-0.1+ mV T-WAVE IN I/aVL/V5/V6] Compared to ECG 02/08/2025 00:12:01 T-wave abnormality now present Possible ischemia now present Electronically Signed On 02-08-2025 18:15:27 CDT by MARLYN MCKEON [email or web address] [id number]
--- NOTE | 2025-02-08 06:34 | XRR_ITS ---
PROCEDURE INFORMATION: Exam: XR Chest Exam date and time: 02/08/2025 6:56 AM Age: 89 years old Clinical indication: Shortness of breath; Additional info: Low o2 sat TECHNIQUE: Imaging protocol: Radiologic exam of the chest. Views: 1 view. COMPARISON: CT chest abdpel w/*[id number] 01/02/2024 2:17 PM FINDINGS: Lungs: Unremarkable. No consolidation. Pleural spaces: Unremarkable. No pleural effusion. No pneumothorax. Heart/Mediastinum: Unremarkable. No cardiomegaly. Vasculature: Atherosclerotic disease of the aortic arch. Diaphragm: Right diaphragm eventration. Bones/joints: Demineralized bones. Degenerative change of the visualized osseous structures. Organs: Cholecystectomy clips. XR/XR chest 1V portable [id number] IMPRESSION: No acute cardiopulmonary findings.
--- NOTE | 2025-02-08 07:28 | PC.NURSE ---
[facility] NOTIFIED OF ADDITIONAL TESTS BEING ORDERED AND FOR THEIR TRANSPORTATION TO HOLD OFF UNTIL THE ADDITIONAL TESTS WERE RAN.
--- NOTE | 2025-02-08 07:30 | ECG_ITS ---
[facility] Test Date: 2025-02-08 Pat Name: Kassy Baldwin Department: Room: Gender: Female Hotel Registration Clerk: : 1935 Requested By: Reyes Riddle Order Number: [id number] Reading MD: MARLYN MCKEON Measurements Intervals [place] Rate: 96 P: 69 WV: 201 QRS: -41 QRSD: 101 T: 62 QT: 342 QTc: 432 Interpretive Statements SINUS RHYTHM LEFT AXIS DEVIATION [QRS AXIS < -30] VOLTAGE CRITERIA FOR LVH [MEETS CRITERIA IN ONE OF: R(aVL), S(V1), R(V5), R(V5/V6)+S(V1)] POSSIBLE ANTERIOR MYOCARDIAL INFARCTION , OF INDETERMINATE AGE [30 ms Q WAVE IN V3/V4, OR R < 0.2 mV IN V4] Compared to ECG 02/08/2025 00:12:01 ST (T wave) deviation no longer present Myocardial infarct finding still present Electronically Signed On 02-08-2025 18:07:39 CDT by MARLYN MCKEON [id number] [id number]
[2025-02-08 07:54] LABS: Bilirubin Urine Negative (Negative); Blood Urine Negative (Negative); Glucose Urine UA Negative (Normal); Ketones Urine Negative (Negative); Leukocyte Esterase Urine Trace (Negative); Nitrate Urine Negative (Negative); Protein Urine Negative (Negative); Specific Gravity, Urine 1.009 (1.005-1.030); Urine Appearance Clear (CLEAR); Urine Color Yellow (Yellow)
[2025-02-08 07:56] LABS: Add Urine Microscopic? YES; Hyaline Casts Urine 1.65 /lpf; RBC Urine 0-2 /hpf (0-2); Squamous Epithelial Cell Urine 0-5 /hpf (0-5)
[2025-02-08 07:56] LABS: Basophils # 0.1 10^3/uL (0.0-0.1); Basophils % 0.8 %; Eosinophils # 0.4 10^3/uL (0.0-0.8); Eosinophils % 3.9 %; Hematocrit 38.8 % (36-47); Lymphocytes # 2.5 10^3/uL (0.8-4.8); Lymphocytes % 26.3 %; Mean Corpuscular HGB Conc 31.7 g/dL (30-55); Mean Corpuscular Hemoglobin 30.2 pg (27-33); Mean Corpuscular Volume 95.3 fl (85-98); Mean Platelet Volume 9.2 fL (7.4-10.4); Monocytes % 10.4 %; Neutrophils # 5.57 10^3/uL (1.8-7.7); Neutrophils % 58.3 %; Nucleated Red Blood Cells % 0 %; Platelet Count 328 10^3/cmm (157-399); Red Blood Count 4.07 10^6/uL (3.85-5.65); Red Cell Distribution Width 13.4 % (12.1-15.1); White Blood Count 9.55 10^3/uL (3.29-11.43)
[2025-02-08 08:01] LABS: ABG PCO2 40.3 mmHg (35-45); ABG PH Result 7.43 (7.35-7.45); Alveolar-Arterial Oxygen Gradi 4.7 mmHg (5-10); Base Excess ABG 2.2 mmol/L (-2.0-2.0); Blood Gas Operator Identificat GD; Blood Gas Sample Site Brachial, right; Blood Gas Sample Type Arterial; Carboxyhemoglobin 0.2 %THgb (0.4-20.1); HCO3 ABG 26.7 mmol/L (22-26); HGB O2 Sat 87.9 % (95-100); Ionized Calcium Level - ABG 1.3 mmol/L (1.1-1.4); Methemoglobin 2.7 % (0.4-1.5); Oxygen Device ROOM AIR; Oxygen Saturation ABG 90.5; PO2 ABG 64.2 mmHg (80.0-100.0); PO2 FiO2 Ratio Arterial Blood 305; Potassium Level - ABG 3.9 mmol/L (3.5-5.0); Total Hemoglobin 12.4 g/dL (12-16)
--- NOTE | 2025-02-08 08:02 | PC.PHAR ---
Pt is from [facility]
[2025-02-08 08:12] LABS: Bacteria Urine 4+ /hpf; UA Slide Review UA Slide Review Perf
[2025-02-08 08:14] LABS: Add Urine Culture? Yes
[2025-02-08 08:19] LABS: Alanine Aminotransferase 22 U/L (0-33); Albumin Level 3.9 g/dL (3.5-5.2); Alkaline Phosphatase 126 U/L (35-105); Anion Gap 15.1 (5-19); Aspartate Amino Transferase 49 U/L (0-32); Blood Urea Nitrogen 10 mg/dL (8-23); Calcium 9.1 mg/dL (8.5-10.5); Carbon Dioxide 25 mmol/L (22-29); Chloride 99 mmol/L (98-107); Creatinine Clr Calc Pharmacy 40.7306; Globulin 2.8 g/dL (1.3-4.6); Glucose 104 mg/dL (65-115); Osmolality Calculated 279 mOsm/kg (285-295); Potassium 4.1 mmol/L (3.5-5.1); Sodium 135 mmol/L (136-145); Total Bilirubin 0.4 mg/dL (0.15-1.2); Total Protein 6.7 g/dL (6.6-8.7); Troponin(5th) Baseline 24 ng/L (0-10)
[2025-02-08 10:11] LABS: Troponin 5 2HR 25.35 ng/L (0-10); Troponin 5 2HR Delta 1.35 ABS# (0-10)
== END 2025-02-08 10:58 | disposition home or self-care (01) ==
PROVIDERS: Emergency Provider Family Medicine; PCP Internal Medicine
DX: S09.8XXA Other specified injuries of head, initial encounter (principal); W19.XXXA Unspecified fall, initial encounter
CPT/HCPCS: 36415; 36600; 70450; 70486; 71045; 72125; 80051; 80053; 81001; 82330; 82805; 84484; 85025; 87077; 87086; 87186; 93005; 99285

== ENCOUNTER 2025-03-01 04:56 | Emergency (ER) | payer MEDICARE, MEDICAID, SELFPAY ==
[2025-03-01 04:58] VITALS: BP 164/77; PULSE 106; RESP 18; TEMP 37.8; O2SAT 91; BMI 17.6
--- NOTE | 2025-03-01 05:08 | PC.NURSE ---
pt is only alert to herself. Unable to answer the SI questions at this time
--- NOTE | 2025-03-01 05:36 | XRR_ITS ---
PROCEDURE INFORMATION: Exam: XR Chest Exam date and time: 03/01/2025 6:15 AM Age: 89 years old Clinical indication: Fever and other: AMS; [facility]. Febrile. ; Additional info: Fever AMS TECHNIQUE: Imaging protocol: Radiologic exam of the chest. Views: 1 view. COMPARISON: CR (CHEST, ) 02/08/2025 6:56 AM FINDINGS: Lungs: Low lung volumes. No definite consolidation is identified. Chronic reticular interstitial changes. Limited evaluation of the lung bases secondary to the reduced lung volumes. Pleural spaces: Unremarkable. No pleural effusion. No pneumothorax. Heart/Mediastinum: Unremarkable. No cardiomegaly. Bones/joints: Unremarkable. XR/XR chest 1V portable [id number] IMPRESSION: No focal bronchopneumonia is identified but there is limited assessment of the lung bases.
--- NOTE | 2025-03-01 05:36 | CTR_ITS ---
PROCEDURE INFORMATION: Exam: CT Head Without Contrast Exam date and time: 03/01/2025 6:31 AM Age: 89 years old Clinical indication: Altered mental status/memory loss; EMS arrival from group home for worsening confusion. Sustained a fall with headstrike on 02/08/2025. ; Additional info: AMS TECHNIQUE: Imaging protocol: Computed tomography of the head without contrast. Radiation optimization: All CT scans at this facility use at least one of these dose optimization techniques: automated exposure control; mA and/or kV adjustment per patient size (includes targeted exams where dose is matched to clinical indication); or iterative reconstruction. COMPARISON: CT head wo con* [id number] 02/08/2025 12:44 AM RADIATION DOSE METRICS: Total DLP (mGy-cm): 1078.78 FINDINGS: Brain: There is moderate cerebral atrophy. There is mild diffuse heterogeneity of the white matter attenuation, consistent with chronic white matter ischemic changes. Negative for intracranial hemorrhage. Negative for mass effect on the brain. Negative for midline shift of the brain. Cerebral ventricles: No ventriculomegaly. Paranasal sinuses: The left ethmoid air cells are opacified. Left maxillary sinus is opacified. Mastoid air cells: Visualized mastoid air cells are well aerated. Bones: Unremarkable. No acute fracture. Soft tissues: Unremarkable. CT/CT head wo con* [id number] IMPRESSION: Negative for acute intracranial pathology.
[2025-03-01 05:38] VITALS: PULSE 99; RESP 16; O2SAT 92
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
[2025-03-01 06:08] VITALS: BP 179/95; PULSE 84; RESP 15; O2SAT 94
[2025-03-01 06:22] LABS: Bacteria Urine 4+ /hpf; RBC Urine 0-2 /hpf (0-2); Squamous Epithelial Cell Urine 0-5 /hpf (0-5)
[2025-03-01 06:26] LABS: Basophils # 0.1 10^3/uL (0.0-0.1); Basophils % 0.5 %; Eosinophils # 0.1 10^3/uL (0.0-0.8); Eosinophils % 0.4 %; Hematocrit 42.6 % (36-47); Lymphocytes # 1.8 10^3/uL (0.8-4.8); Mean Corpuscular HGB Conc 31.7 g/dL (30-55); Mean Corpuscular Hemoglobin 30.5 pg (27-33); Mean Corpuscular Volume 96.2 fl (85-98); Mean Platelet Volume 9.6 fL (7.4-10.4); Monocytes # 1.2 10^3/uL (0.2-0.9); Monocytes % 9.4 %; Neutrophils # 9.59 10^3/uL (1.8-7.7); Neutrophils % 75.4 %; Nucleated Red Blood Cells % 0 %; Platelet Count 192 10^3/cmm (157-399); Red Blood Count 4.43 10^6/uL (3.85-5.65); Red Cell Distribution Width 13.4 % (12.1-15.1); White Blood Count 12.71 10^3/uL (3.29-11.43)
[2025-03-01 06:29] LABS: Influenza A NEGATIVE (Negative); Influenza B NEGATIVE (Negative); Respiratory Syncytial Virus Ce NEGATIVE (Negative); SARS-CoV-2 PCR NEGATIVE (Negative)
[2025-03-01 06:30] VITALS: PULSE 105; RESP 16; O2SAT 98
[2025-03-01 06:33] LABS: Specific Gravity, Urine 1.015 (1.005-1.030); Urine Appearance Clear (CLEAR); Urine Color Yellow (Yellow); pH Urine 6 (5-7)
[2025-03-01 06:34] LABS: Add Urine Culture? Yes; Add Urine Microscopic? YES; Bilirubin Urine Neg (Negative); Blood Urine Neg (Negative); Glucose Urine UA Norm (Normal); Ketones Urine Negative (Negative); Leukocyte Esterase Urine Negative (Negative); Nitrate Urine Positive (Negative); Protein Urine Neg (Negative); Urobilinogen Urine Neg (Negative)
[2025-03-01 06:47] LABS: Alanine Aminotransferase 11 U/L (0-33); Albumin Level 3.9 g/dL (3.5-5.2); Alkaline Phosphatase 134 U/L (35-105); Blood Urea Nitrogen 11 mg/dL (8-23); C Reactive Protein 3.9 mg/L (0.0-4.9); Calcium 9.7 mg/dL (8.5-10.5); Carbon Dioxide 22 mmol/L (22-29); Chloride 96 mmol/L (98-107); Creatinine Clr Calc Pharmacy 37.3168; Glucose 122 mg/dL (65-115); Osmolality Calculated 273 mOsm/kg (285-295); Sodium 131 mmol/L (136-145); Total Bilirubin 0.6 mg/dL (0.15-1.2); Total Protein 7.9 g/dL (6.6-8.7)
[2025-03-01 06:54] LABS: Anion Gap 17.2 (5-19); Aspartate Amino Transferase 27 U/L (0-32); Potassium 4.2 mmol/L (3.5-5.1)
[2025-03-01 09:16] VITALS: PULSE 114; O2SAT 99
--- NOTE | 2025-03-01 09:19 | PC.NURSE ---
CALLED AND SPOKE TO [facility] ABOUT PICKUP, STATING THEY WOULD STILL BE HERE.
--- NOTE | 2025-03-01 10:19 | PC.NURSE ---
PATIENT UP TO BEDSIDE COMMODE. PATIENT REMAINS PLEASANTLY CONFUSED. PATIENT PLACED BACK IN BED, WARM BLANKET PROVIDED. PATIENT PLACED IN [place], IN VIEW OF NURSES STATION.
[2025-03-01 10:27] VITALS: BP 112/88; PULSE 81; O2SAT 96
== END 2025-03-01 10:29 | disposition home or self-care (01) ==
PROVIDERS: Emergency Provider Emergency Medicine; PCP Internal Medicine
DX: N39.0 Urinary tract infection, site not specified (principal); Z11.52 Encounter for screening for COVID-19; Z79.4 Long term (current) use of insulin; E11.9 Type 2 diabetes mellitus without complications
CPT/HCPCS: 36415; 70450; 71045; 80053; 81001; 85025; 86140; 87077; 87086; 87186; 87637; 99284

== ENCOUNTER → 2025-05-31 10:47 | Outpatient (BNVA) | payer MEDICARE, MEDICAID, SELFPAY | PROVIDERS: PCP Internal Medicine; Visit Provider Orthopaedic Surgery | DX: M54.41 Lumbago with sciatica, right side (principal); M54.42 Lumbago with sciatica, left side; G89.29 Other chronic pain | CPT/HCPCS: 72100; 99203 ==

== ENCOUNTER 2025-06-10 13:33 | Outpatient (CLI) | payer MEDICARE, MEDICAID, SELFPAY ==
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
== END 2025-06-10 13:34 | disposition home or self-care (01) ==
LOC: RAD 13:34
PROVIDERS: PCP Internal Medicine; Visit Provider Orthopaedic Surgery
DX: S22.081A Stable burst fracture of T11-T12 vertebra, initial encounter for closed fracture (principal); S32.011A Stable burst fracture of first lumbar vertebra, initial encounter for closed fracture; S32.058A Other fracture of fifth lumbar vertebra, initial encounter for closed fracture; M48.061 Spinal stenosis, lumbar region without neurogenic claudication; X58.XXXA Exposure to other specified factors, initial encounter
CPT/HCPCS: 72148

== ENCOUNTER → 2025-06-17 14:23 | Outpatient (BNVA) | payer MEDICARE, MEDICAID, SELFPAY | PROVIDERS: PCP Internal Medicine; Visit Provider Orthopaedic Surgery | DX: S22.080A Wedge compression fracture of T11-T12 vertebra, initial encounter for closed fracture (principal); X58.XXXA Exposure to other specified factors, initial encounter | CPT/HCPCS: 99213 ==